=== PATIENT | female | born 1980 | race African-American/Black ===

== ENCOUNTER 2017-05-20 19:49 | Inpatient (IN) | payer SELFPAY ==
[~2017-05-20] VITALS: Ht 160 cm; Wt 73.7 kg
[2017-05-20] MEDS ORDERED: IV NORMAL SALINE 1000ML BAG 1,000 ML IV ONE ×2 (20:30→22:30)
[2017-05-20 20:34] LABS: BILIRUBIN,URINE SMALL (NEG); GLUCOSE,URINE NEGATIVE (NEG); NITRITE,URINE NEGATIVE (NEG); PROTEIN,URINE 100 mg/dL (NEG-TRACE)
[2017-05-20 20:35] LABS: BASO % 0 % (0-3); EOS % 1 % (0-3); HEMATOCRIT 37.2 % (36.0-47.0); HEMOGLOBIN 12.4 g/dL (12.0-15.5); LYMPH # 0.8 x10^3/uL (1.0-4.8); LYMPH % 14 % (24-48); MEAN CORPUSCULAR HEMOGLOBIN 29 pg (25-35); MEAN CORPUSCULAR HGB CONC 33 g/dL (31-37); MEAN CORPUSCULAR VOLUME 87 fL (79-100); MONO % 4 % (0-9); NEUT % 82 % (31-73); PLATELET COUNT 383 x10^3/uL (140-400); RED BLOOD COUNT 4.27 x10^6/uL (3.50-5.40); RED CELL DISTRIBUTION WIDTH 13.6 % (11.5-14.5)
[2017-05-20] MEDS ORDERED: ONDANSETRON PF 4 MG/2 ML VIAL. IV ONE (20:45)
[2017-05-20] MEDS ORDERED: fentaNYL PF VIAL 100 MCG/2 ML VIAL IV ONE (20:45)
[2017-05-20 20:47] LABS: BACTERIA,URINE FEW /HPF (0-FEW); RBC,URINE 20-40 /HPF (0-2); SQUAMOUS EPITHELIAL CELL,UR MOD /LPF
[2017-05-20 20:51] LABS: CALCIUM 8.6 mg/dL (8.5-10.1); CREATININE 0.6 mg/dL (0.6-1.0); GFR 134.7; POTASSIUM 3.7 mmol/L (3.5-5.1)
[2017-05-20 20:58] LABS: ALBUMIN 3.1 g/dL (3.4-5.0); ALBUMIN/GLOBULIN RATIO 0.7 (1.0-1.7); TOTAL BILIRUBIN 0.7 mg/dL (0.2-1.0); TOTAL PROTEIN 7.7 g/dL (6.4-8.2)
[2017-05-20] MEDS ORDERED: CONTRAST GIVEN MC PRN (21:00)
[2017-05-20] MEDS ORDERED: IOHEXOL 300 MG/ML 75 ML VIAL IV ONE (21:00)
[2017-05-20 21:03] LABS: CREATINE KINASE 88 U/L (26-192)
[2017-05-20 21:04] LABS: CKMB MASS < 0.5 ng/mL (0.0-3.6)
--- NOTE | 2017-05-20 21:47 | RAD ---
CT SCAN OF THE ABDOMEN AND PELVIS WITH IV CONTRAST. History: Left lower quadrant pain and bilateral flank pain Comparison:None. Procedure: Contiguous axial images of the abdomen and pelvis were performed after the administration of 75 cc of Omni 300 IV contrast and without oral contrast. CT Abdomen with contrast: Findings: Liver: Unremarkable Spleen: Unremarkable Pancreas: Unremarkable Adrenal Glands: Unremarkable Kidneys: Unremarkable There is no mass or lymphadenopathy. There is a trace of free fluid around the liver and in the right paracolic gutter. There are numerous loops of small bowel in the left upper quadrant which appear mildly dilated and enhancing falcon and mild surrounding inflammation. There is mild free air. The distal small bowel appears somewhat collapsed however a transition zone is not seen. CT Pelvis with Contrast: Findings: The urinary bladder appears normal. There is mild free fluid. There is no lymphadenopathy. There is mild wall thickening of the distal descending colon and the proximal sigmoid colon. Impression: 1. Mild free air and mild free fluid is likely secondary to small bowel perforation. 2. Mildly dilated loops of small bowel with enhancement and wall thickening and surrounding inflammation in the left hemiabdomen as well as mild wall thickening of the distal descending colon and the proximal sigmoid colon. Findings suggest inflammatory or infectious colitis and enteritis. PQRS Compliance Statement: One or more of the following individualized dose reduction techniques were utilized for this examination: 1. Automated exposure control 2. Adjustment of the mA and/or kV according to patient size 3. Use of iterative reconstruction technique Electronically signed by: Cooper Abarca III, MD (05/20/2017 9:44 PM) [facility]
--- NOTE | 2017-05-20 22:10 | PHYS DOC ---
Past Medical History Past Medical History: No Pertinent History Past Surgical History: No Surgical History Alcohol Use: None Drug Use: None Adult General Chief Complaint Chief Complaint: ABDOMINAL PAIN HPI HPI Patient is a 37 year old E male presents to the emergency department with complaints of diffuse abdominal pain. She states that approximate 7 days ago she ate at a barbecue dinner and developed upper abdominal pain with mild nausea and diarrhea. She states she had persistent abdominal pain for 2 days and then the pain diminished for approximately 12 hours. She states that he Wednesday evening, approximately 24 hours ago, she had intensification of the diffuse upper abdominal pain, mild diarrhea and nausea. She initially states the pain was in the epigastric area and was burning in nature that is since became sharp and intolerable. Patient states that approximately 5 hours prior to arrival in the emergency department she felt a popping sensation in the upper abdomen. Review of Systems Review of Systems Constitutional: Denies fever or chills [] Eyes: Denies change in visual acuity, redness, or eye pain [] HENT: Denies nasal congestion or sore throat [] Respiratory: Denies cough or shortness of breath [] Cardiovascular: No additional information not addressed in HPI [] GI: Abdominal pain with nausea and : Denies dysuria or hematuria [] Musculoskeletal: Denies back pain or joint pain [] Integument: Denies rash or skin lesions [] Neurologic: Denies headache, focal weakness or sensory changes [] Endocrine: Denies polyuria or polydipsia [] Current Medications Current Medications Current Medications Medications (Trade) Dose Ordered Sig/Tom Start Time Stop Time Status Last Admin Dose Admin Fentanyl Citrate (Fentanyl 2ml Vial) 50 mcg PRN Q1HR PRN 05/20/17 22:30 05/21/17 22:29 UNV Info (Do NOT chart on this entry -- for MONITORING) 1 each PRN DAILY PRN 05/20/17 21:00 05/22/17 20:59 Iohexol (Omnipaque 300 Mg/ml) 75 ml 1X ONCE 05/20/17 21:00 05/20/17 21:01 DC 05/20/17 21:21 75 ML Ondansetron HCl (Zofran) 4 mg PRN Q8HRS PRN 05/20/17 22:30 05/21/17 22:29 UNV Pantoprazole Sodium (Protonix Vial) 40 mg 1X ONCE 05/20/17 22:30 05/20/17 22:31 UNV Pantoprazole Sodium 80 mg/ Sodium Chloride 100 ml @ 10 mls/hr 1X ONCE 05/20/17 22:30 05/21/17 08:29 UNV Piperacillin Sod/ Tazobactam Sod (Zosyn Per Pharmacy) 1 each PRN DAILY PRN 05/20/17 22:30 UNV Piperacillin Sod/ Tazobactam Sod 3.375 gm/Sodium Chloride 50 ml @ 100 mls/hr 1X ONCE 05/20/17 22:30 05/20/17 22:59 Sodium Chloride 1,000 ml @ 1,000 mls/hr 1X ONCE 05/20/17 22:30 05/20/17 23:29 UNV Allergies Allergies Allergies Coded Allergies Type Severity Reaction Last Updated Verified No Known Drug Allergies 05/20/17 No Physical Exam Physical Exam Constitutional: Well developed, well nourished, no acute distress, non-toxic appearance.Mucous membranes moist [] Eyes: PERRLA, EOMI, conjunctiva normal, no discharge. [] Neck: Normal range of motion, no tenderness, supple, no stridor. [] Cardiovascular:Heart rate regular rhythm, no murmur [] Lungs & Thorax: Bilateral breath sounds clear to auscultation [] Abdomen: Mild distention, soft, diffuse tenderness, no peritoneal signs. Skin: Warm, dry, no erythema, no rash. [] Back: No tenderness, left flank tenderness. Extremities: No tenderness, no cyanosis, no clubbing, ROM intact, no edema. [] Neurologic: Alert and oriented X 3, normal motor function, normal sensory function, no focal deficits noted. [] Psychologic: Affect normal, judgement normal, mood normal. [] Current Patient Data Vital Signs Vital Signs Date Time Temp Pulse Resp B/P (MAP) Pulse Ox O2 Delivery O2 Flow Rate FiO2 05/20/17 20:47 24 97 Room Air 05/20/17 20:12 100.3 150 136/66 (89) 100.3 Lab Values Laboratory Tests Test 05/20/17 19:57 05/20/17 20:24 05/20/17 20:25 Urine Collection Type Unknown Urine Color Juliette Urine Clarity Clear Urine pH 8.0 Urine Specific [place] >=1.030 Urine Protein 100 mg/dL (NEG-TRACE) Urine Glucose (UA) Negative mg/dL (NEG) Urine Ketones (Stick) 40 mg/dL (NEG) Urine Blood Trace (NEG) Urine Nitrite Negative (NEG) Urine Bilirubin Small (NEG) Urine Urobilinogen Dipstick 4.0 mg/dL (0.2 mg/dL) Urine Leukocyte Esterase Small (NEG) Urine RBC 20-40 /HPF (0-2) Urine WBC 1-4 /HPF (0-4) Urine Squamous Epithelial Cells Mod /LPF Urine Bacteria Few /HPF (0-FEW) Urine Mucus Marked /LPF POC Urine HCG, Qualitative Hcg negative (Negative) White Blood Count 6.0 x10^3/uL (4.0-11.0) Red Blood Count 4.27 x10^6/uL (3.50-5.40) Hemoglobin 12.4 g/dL (12.0-15.5) Hematocrit 37.2 % (36.0-47.0) Mean Corpuscular Volume 87 fL (79-100) Mean Corpuscular Hemoglobin 29 pg (25-35) Mean Corpuscular Hemoglobin Concent 33 g/dL (31-37) Red Cell Distribution Width 13.6 % (11.5-14.5) Platelet Count 383 x10^3/uL (140-400) Neutrophils (%) (Auto) 82 % (31-73) H Lymphocytes (%) (Auto) 14 % (24-48) L Monocytes (%) (Auto) 4 % (0-9) Eosinophils (%) (Auto) 1 % (0-3) Basophils (%) (Auto) 0 % (0-3) Neutrophils # (Auto) 4.9 x10^3uL (1.8-7.7) Lymphocytes # (Auto) 0.8 x10^3/uL (1.0-4.8) L Monocytes # (Auto) 0.2 x10^3/uL (0.0-1.1) Eosinophils # (Auto) 0.0 x10^3/uL (0.0-0.7) Basophils # (Auto) 0.0 x10^3/uL (0.0-0.2) Sodium Level 136 mmol/L (136-145) Potassium Level 3.7 mmol/L (3.5-5.1) Chloride Level 101 mmol/L (98-107) Carbon Dioxide Level 26 mmol/L (21-32) Anion Gap 9 (6-14) Blood Urea Nitrogen 11 mg/dL (7-20) Creatinine 0.6 mg/dL (0.6-1.0) Estimated GFR (Cockcroft-Gault) 134.7 BUN/Creatinine Ratio 18 (6-20) Glucose Level 129 mg/dL (70-99) H Calcium Level 8.6 mg/dL (8.5-10.1) Total Bilirubin 0.7 mg/dL (0.2-1.0) Aspartate Amino Transferase (AST) 47 U/L (15-37) H Alanine Aminotransferase (ALT) 55 U/L (14-59) Alkaline Phosphatase 142 U/L (46-116) H Creatine Kinase 88 U/L (26-192) Creatine Kinase MB (Mass) < 0.5 ng/mL (0.0-3.6) Creatine Kinase MB Relative Index % (0-4) Troponin I Quantitative < 0.017 ng/mL (0.000-0.055) Total Protein 7.7 g/dL (6.4-8.2) Albumin 3.1 g/dL (3.4-5.0) L Albumin/Globulin Ratio 0.7 (1.0-1.7) L Amylase Level 31 U/L (25-115) Lipase 93 U/L (73-393) Laboratory Tests 05/20/17 20:25 Laboratory Tests 05/20/17 20:25 EKG EKG [] Radiology/Procedures Radiology/Procedures [] Course & Med Decision Making Course & Med Decision Making Pertinent Labs and Imaging studies reviewed. (See chart for details) []2211: Consult Dr. Vazquez and Dr. Prieto regarding diagnosis and request for admission. Pt admitted to Dr. Vazquez, ICU; FABRICIO Davsi in ED 2229: Case discussed with Dr. Goel 2234: Dr. Prieto notified VS changes, BP103/70 and HR 135. Pt without complaints at time of re-eval. Dragon Disclaimer Dragon Disclaimer This electronic medical record was generated, in whole or in part, using a voice recognition dictation system. Departure Departure Disposition: 09 ADMITTED INPATIENT Admitting Physician: Karla Vazquez Condition: GUARDED Referrals: NO PCP (PCP) HONEY HUMPHREY [employer]IMAL SHELTER MANAGER May 20, 2017 22:10
[2017-05-20] MEDS: IV NORMAL SALINE 1000ML BAG 1,000 ML IV SCH (22:30)
[2017-05-20] MEDS ORDERED: PIPERACILLIN/TAZOBACTAM 3.375 GM in IV NORMAL SALINE 50ML 50 ML IV ONE (22:30)
[2017-05-20] MEDS ORDERED: ONDANSETRON PF 4 MG/2 ML VIAL. IV PRN (22:30)
[2017-05-20] MEDS ORDERED: PIP/TAZO PER PHARMACY MC PRN (22:30)
[2017-05-20] MEDS ORDERED: PANTOPRAZOLE IV PUSH 40 MG VIAL. IVP ONE (22:45)
[2017-05-20] MEDS ORDERED: PANTOPRAZOLE SODIUM IV DRIP 80 MG in IV NORMAL SALINE 100ML 100 ML IV ONE (22:45)
[2017-05-20 23:44] LABS: INR 1.2 (0.8-1.1); PROTHROMBIN TIME PATIENT 14.6 SEC (11.7-14.0)
[2017-05-21] VITALS (23 sets, daily range): BP systolic 92–118; BP diastolic 53–74
[2017-05-21] MEDS: fentaNYL PF VIAL 100 MCG/2 ML VIAL IV PRN ×6 (00:32→22:16)
[2017-05-21] MEDS ORDERED: INFLUENZA VAX SCREEN BY RX. MC ONE (01:30)
[2017-05-21 05:39] LABS: BASO % 0 % (0-3); EOS % 0 % (0-3); HEMATOCRIT 35.7 % (36.0-47.0); HEMOGLOBIN 11.9 g/dL (12.0-15.5); LYMPH # 0.9 x10^3/uL (1.0-4.8); LYMPH % 10 % (24-48); MEAN CORPUSCULAR HEMOGLOBIN 29 pg (25-35); MEAN CORPUSCULAR HGB CONC 33 g/dL (31-37); MEAN CORPUSCULAR VOLUME 88 fL (79-100); MONO % 6 % (0-9); NEUT % 84 % (31-73); PLATELET COUNT 349 x10^3/uL (140-400); RED BLOOD COUNT 4.05 x10^6/uL (3.50-5.40); WHITE BLOOD COUNT 9.1 x10^3/uL (4.0-11.0)
[2017-05-21] MEDS: PIPERACILLIN/TAZOBACTAM 3.375 GM in IV NORMAL SALINE 50ML 50 ML IV SCH ×4 (06:04→23:45)
[2017-05-21 06:09] LABS: CALCIUM 7.4 mg/dL (8.5-10.1); CREATININE 0.5 mg/dL (0.6-1.0); GFR 166.2; POTASSIUM 3.2 mmol/L (3.5-5.1)
--- NOTE | 2017-05-21 06:15 | EKG ---
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
[2017-05-21] MEDS ORDERED: BUPIVACAINE-EPI 0.25%-1:200000 MPF 30 ML VIAL. ONE (06:48)
--- NOTE | 2017-05-21 07:16 | PDOC2 ---
CONSULT Date of Consult Date of Consult DATE: 05/21/17 TIME: 07:11 Reason for Consult Reason for Consult: Abd pain Referring Physician Referring Physician: Taylor Identification/Chief Complaint Chief Complaint Abd pain Problems: Source Source: Patient History of Present Illness Reason for Visit: 37 yo female with 7 day history of abdominal pain "burning" Pain has worsened which caused her to come to ED. Denies N/V Has had normal BM's. CT scan shows small amount of free air and some free fluid. Past Medical History Cardiovascular: No pertinent hx Pulmonary: No pertinent hx GI: No pertinent hx Heme/Onc: No pertinent hx Hepatobiliary: No pertinent hx Psych: No pertinent hx Rheumatologic: No pertinent hx Infectious disease: No pertinent hx ENT: No pertinent hx Renal/: No pertinent hx Endocrine: No pertinent hx Dermatology: No pertinent hx Past Surgical History Past Surgical History: No pertinent history Current Medications Current Medications Current Medications Sodium Chloride 1,000 ml @ 1,000 mls/hr 1X ONCE IV Last administered on 20:40; Start 05/20/17 at 20:30; Stop 05/20/17 at 21:29; Status DC Ondansetron HCl (Zofran) 4 mg 1X ONCE IV Last administered on 05/20/17 20:47 ; Start 05/20/17 at 20:45; Stop 05/20/17 at 20:46; Status DC Fentanyl Citrate (Fentanyl 2ml Vial) 50 mcg 1X ONCE IV Last administered on 20:47; Start 05/20/17 at 20:45; Stop 05/20/17 at 20:46; Status DC Iohexol (Omnipaque 300 Mg/ml) 75 ml 1X ONCE IV Last administered on 05/20/17 21:21; Start 05/20/17 at 21:00; Stop 05/20/17 at 21:01; Status DC Info (Do NOT chart on this entry -- for MONITORING) 1 each PRN DAILY PRN MC SEE COMMENTS; Start 05/20/17 at 21:00; Stop 05/22/17 at 20:59 Piperacillin Sod/ Tazobactam Sod 3.375 gm/Sodium Chloride 50 ml @ 100 mls/hr 1X ONCE IV Last administered on 05/20/17 22:42; Start 05/20/17 at 22:30; Stop 05/20/17 at 22:59; Status DC Ondansetron HCl (Zofran) 4 mg PRN Q8HRS PRN IV NAUSEA/VOMITING; Start 05/20/17 at 22:30; Stop 05/21/17 at 22:29 Fentanyl Citrate (Fentanyl 2ml Vial) 50 mcg PRN Q1HR PRN IV PAIN Last administered on 05/21/17 06:10; Start 05/20/17 at 22:30; Stop 05/21/17 at 22:29 Sodium Chloride 1,000 ml @ 125 mls/hr Q8H IV Last administered on 05/20/17 22 :30; Start 05/20/17 at 22:30; Stop 05/21/17 at 22:29 Piperacillin Sod/ Tazobactam Sod (Zosyn Per Pharmacy) 1 each PRN DAILY PRN MC SEE COMMENTS; Start 05/20/17 at 22:30 Pantoprazole Sodium (Protonix Vial) 40 mg 1X ONCE IVP Last administered on 22:54; Start 05/20/17 at 22:45; Stop 05/20/17 at 22:46; Status DC Pantoprazole Sodium 80 mg/ Sodium Chloride 100 ml @ 10 mls/hr 1X ONCE IV Last administered on 05/20/17 22:54; Start 05/20/17 at 22:45; Stop 05/21/17 at 08:44 Sodium Chloride 1,000 ml @ 1,000 mls/hr 1X ONCE IV Last administered on 22:54; Start 05/20/17 at 22:30; Stop 05/20/17 at 23:29; Status DC Piperacillin Sod/ Tazobactam Sod 3.375 gm/Sodium Chloride 50 ml @ 100 mls/hr Q6HRS IV Last administered on 05/21/17 06:04; Start 05/21/17 at 06:00 Info (Do NOT chart on this placeholder) 1 each 1X ONCE MC ; Start 05/21/17 at 01:30; Stop 05/21/17 at 01:31; Status UNV Influenza Virus Vaccine Quadrival (Fluarix Quad [id number] Syringe) 0.5 ml ONCE ONCE VAX IM ; Start 05/21/17 at 09:00; Stop 05/21/17 at 09:01 Pantoprazole Sodium 80 mg/ Sodium Chloride 100 ml @ 10 mls/hr Q10H IV ; Start 05/21/17 at 06:45 Active Scripts Active Reported No Known Medications Prior To Admisstion (Info) Each 1 Each Allergies Allergies: Coded Allergies: No Known Drug Allergies (Unverified , 05/20/17) ROS General: YES: Fatigue Gastrointestinal: Yes Abdominal Pain Physical Exam General: Alert, Oriented X3, Cooperative, moderate distress HEENT: PERRLA, EOMI Lungs: Clear to auscultation, Normal air movement Heart: Regular rate, No murmurs Abdomen: Soft, Other (diffusely TTP ) Extremities: No edema Skin: No significant lesion Neuro: Normal speech Psych/Mental Status: Mental status NL Vitals VITALS Vital Signs Date Time Temp Pulse Resp B/P (MAP) Pulse Ox O2 Delivery O2 Flow Rate FiO2 05/21/17 06:42 18 98 Room Air 05/21/17 06:00 120 100/56 (71) 05/21/17 05:00 98.8 98.8 Labs Labs Laboratory Tests Test 05/20/17 19:57 05/20/17 20:24 05/20/17 20:25 05/20/17 23:40 Urine Collection Type Unknown Urine Color Juliette Urine Clarity Clear Urine pH 8.0 Urine Specific [place] >=1.030 Urine Protein 100 mg/dL (NEG-TRACE) Urine Glucose (UA) Negative mg/dL (NEG) Urine Ketones (Stick) 40 mg/dL (NEG) Urine Blood Trace (NEG) Urine Nitrite Negative (NEG) Urine Bilirubin Small (NEG) Urine Urobilinogen Dipstick 4.0 mg/dL (0.2 mg/dL) Urine Leukocyte Esterase Small (NEG) Urine RBC 20-40 /HPF (0-2) Urine WBC 1-4 /HPF (0-4) Urine Squamous Epithelial Cells Mod /LPF Urine Bacteria Few /HPF (0-FEW) Urine Mucus Marked /LPF Bedside Urine HCG, Qualitative Hcg negative (Negative) White Blood Count 6.0 x10^3/uL (4.0-11.0) Red Blood Count 4.27 x10^6/uL (3.50-5.40) Hemoglobin 12.4 g/dL (12.0-15.5) Hematocrit 37.2 % (36.0-47.0) Mean Corpuscular Volume 87 fL (79-100) Mean Corpuscular Hemoglobin 29 pg (25-35) Mean Corpuscular Hemoglobin Concent 33 g/dL (31-37) Red Cell Distribution Width 13.6 % (11.5-14.5) Platelet Count 383 x10^3/uL (140-400) Neutrophils (%) (Auto) 82 % (31-73) Lymphocytes (%) (Auto) 14 % (24-48) Monocytes (%) (Auto) 4 % (0-9) Eosinophils (%) (Auto) 1 % (0-3) Basophils (%) (Auto) 0 % (0-3) Neutrophils # (Auto) 4.9 x10^3uL (1.8-7.7) Lymphocytes # (Auto) 0.8 x10^3/uL (1.0-4.8) Monocytes # (Auto) 0.2 x10^3/uL (0.0-1.1) Eosinophils # (Auto) 0.0 x10^3/uL (0.0-0.7) Basophils # (Auto) 0.0 x10^3/uL (0.0-0.2) Prothrombin Time 14.6 SEC (11.7-14.0) Prothromb Time International Ratio 1.2 (0.8-1.1) Activated Partial Thromboplast Time 36 SEC (24-38) Sodium Level 136 mmol/L (136-145) Potassium Level 3.7 mmol/L (3.5-5.1) Chloride Level 101 mmol/L (98-107) Carbon Dioxide Level 26 mmol/L (21-32) Anion Gap 9 (6-14) Blood Urea Nitrogen 11 mg/dL (7-20) Creatinine 0.6 mg/dL (0.6-1.0) Estimated GFR (Cockcroft-Gault) 134.7 BUN/Creatinine Ratio 18 (6-20) Glucose Level 129 mg/dL (70-99) Calcium Level 8.6 mg/dL (8.5-10.1) Total Bilirubin 0.7 mg/dL (0.2-1.0) Aspartate Amino Transf (AST/SGOT) 47 U/L (15-37) Alanine Aminotransferase (ALT/SGPT) 55 U/L (14-59) Alkaline Phosphatase 142 U/L (46-116) Creatine Kinase 88 U/L (26-192) Creatine Kinase MB (Mass) < 0.5 ng/mL (0.0-3.6) Creatine Kinase MB Relative Index % (0-4) Troponin I Quantitative < 0.017 ng/mL (0.000-0.055) Total Protein 7.7 g/dL (6.4-8.2) Albumin 3.1 g/dL (3.4-5.0) Albumin/Globulin Ratio 0.7 (1.0-1.7) Amylase Level 31 U/L (25-115) Lipase 93 U/L (73-393) Lactic Acid Level 0.9 mmol/L (0.4-2.0) Test 05/21/17 01:30 05/21/17 05:00 Lactic Acid Level 0.8 mmol/L (0.4-2.0) White Blood Count 9.1 x10^3/uL (4.0-11.0) Red Blood Count 4.05 x10^6/uL (3.50-5.40) Hemoglobin 11.9 g/dL (12.0-15.5) Hematocrit 35.7 % (36.0-47.0) Mean Corpuscular Volume 88 fL (79-100) Mean Corpuscular Hemoglobin 29 pg (25-35) Mean Corpuscular Hemoglobin Concent 33 g/dL (31-37) Red Cell Distribution Width 14.0 % (11.5-14.5) Platelet Count 349 x10^3/uL (140-400) Neutrophils (%) (Auto) 84 % (31-73) Lymphocytes (%) (Auto) 10 % (24-48) Monocytes (%) (Auto) 6 % (0-9) Eosinophils (%) (Auto) 0 % (0-3) Basophils (%) (Auto) 0 % (0-3) Neutrophils # (Auto) 7.6 x10^3uL (1.8-7.7) Lymphocytes # (Auto) 0.9 x10^3/uL (1.0-4.8) Monocytes # (Auto) 0.5 x10^3/uL (0.0-1.1) Eosinophils # (Auto) 0.0 x10^3/uL (0.0-0.7) Basophils # (Auto) 0.0 x10^3/uL (0.0-0.2) Sodium Level 139 mmol/L (136-145) Potassium Level 3.2 mmol/L (3.5-5.1) Chloride Level 107 mmol/L (98-107) Carbon Dioxide Level 23 mmol/L (21-32) Anion Gap 9 (6-14) Blood Urea Nitrogen 7 mg/dL (7-20) Creatinine 0.5 mg/dL (0.6-1.0) Estimated GFR (Cockcroft-Gault) 166.2 Glucose Level 106 mg/dL (70-99) Calcium Level 7.4 mg/dL (8.5-10.1) Laboratory Tests Test 05/20/17 19:57 05/20/17 20:24 05/20/17 20:25 05/20/17 23:40 Urine Collection Type Unknown Urine Color Juliette Urine Clarity Clear Urine pH 8.0 Urine Specific [place] >=1.030 Urine Protein 100 mg/dL (NEG-TRACE) Urine Glucose (UA) Negative mg/dL (NEG) Urine Ketones (Stick) 40 mg/dL (NEG) Urine Blood Trace (NEG) Urine Nitrite Negative (NEG) Urine Bilirubin Small (NEG) Urine Urobilinogen Dipstick 4.0 mg/dL (0.2 mg/dL) Urine Leukocyte Esterase Small (NEG) Urine RBC 20-40 /HPF (0-2) Urine WBC 1-4 /HPF (0-4) Urine Squamous Epithelial Cells Mod /LPF Urine Bacteria Few /HPF (0-FEW) Urine Mucus Marked /LPF Bedside Urine HCG, Qualitative Hcg negative (Negative) White Blood Count 6.0 x10^3/uL (4.0-11.0) Red Blood Count 4.27 x10^6/uL (3.50-5.40) Hemoglobin 12.4 g/dL (12.0-15.5) Hematocrit 37.2 % (36.0-47.0) Mean Corpuscular Volume 87 fL (79-100) Mean Corpuscular Hemoglobin 29 pg (25-35) Mean Corpuscular Hemoglobin Concent 33 g/dL (31-37) Red Cell Distribution Width 13.6 % (11.5-14.5) Platelet Count 383 x10^3/uL (140-400) Neutrophils (%) (Auto) 82 % (31-73) Lymphocytes (%) (Auto) 14 % (24-48) Monocytes (%) (Auto) 4 % (0-9) Eosinophils (%) (Auto) 1 % (0-3) Basophils (%) (Auto) 0 % (0-3) Neutrophils # (Auto) 4.9 x10^3uL (1.8-7.7) Lymphocytes # (Auto) 0.8 x10^3/uL (1.0-4.8) Monocytes # (Auto) 0.2 x10^3/uL (0.0-1.1) Eosinophils # (Auto) 0.0 x10^3/uL (0.0-0.7) Basophils # (Auto) 0.0 x10^3/uL (0.0-0.2) Prothrombin Time 14.6 SEC (11.7-14.0) Prothromb Time International Ratio 1.2 (0.8-1.1) Activated Partial Thromboplast Time 36 SEC (24-38) Sodium Level 136 mmol/L (136-145) Potassium Level 3.7 mmol/L (3.5-5.1) Chloride Level 101 mmol/L (98-107) Carbon Dioxide Level 26 mmol/L (21-32) Anion Gap 9 (6-14) Blood Urea Nitrogen 11 mg/dL (7-20) Creatinine 0.6 mg/dL (0.6-1.0) Estimated GFR (Cockcroft-Gault) 134.7 BUN/Creatinine Ratio 18 (6-20) Glucose Level 129 mg/dL (70-99) Calcium Level 8.6 mg/dL (8.5-10.1) Total Bilirubin 0.7 mg/dL (0.2-1.0) Aspartate Amino Transf (AST/SGOT) 47 U/L (15-37) Alanine Aminotransferase (ALT/SGPT) 55 U/L (14-59) Alkaline Phosphatase 142 U/L (46-116) Creatine Kinase 88 U/L (26-192) Creatine Kinase MB (Mass) < 0.5 ng/mL (0.0-3.6) Creatine Kinase MB Relative Index % (0-4) Troponin I Quantitative < 0.017 ng/mL (0.000-0.055) Total Protein 7.7 g/dL (6.4-8.2) Albumin 3.1 g/dL (3.4-5.0) Albumin/Globulin Ratio 0.7 (1.0-1.7) Amylase Level 31 U/L (25-115) Lipase 93 U/L (73-393) Lactic Acid Level 0.9 mmol/L (0.4-2.0) Test 05/21/17 01:30 05/21/17 05:00 Lactic Acid Level 0.8 mmol/L (0.4-2.0) White Blood Count 9.1 x10^3/uL (4.0-11.0) Red Blood Count 4.05 x10^6/uL (3.50-5.40) Hemoglobin 11.9 g/dL (12.0-15.5) Hematocrit 35.7 % (36.0-47.0) Mean Corpuscular Volume 88 fL (79-100) Mean Corpuscular Hemoglobin 29 pg (25-35) Mean Corpuscular Hemoglobin Concent 33 g/dL (31-37) Red Cell Distribution Width 14.0 % (11.5-14.5) Platelet Count 349 x10^3/uL (140-400) Neutrophils (%) (Auto) 84 % (31-73) Lymphocytes (%) (Auto) 10 % (24-48) Monocytes (%) (Auto) 6 % (0-9) Eosinophils (%) (Auto) 0 % (0-3) Basophils (%) (Auto) 0 % (0-3) Neutrophils # (Auto) 7.6 x10^3uL (1.8-7.7) Lymphocytes # (Auto) 0.9 x10^3/uL (1.0-4.8) Monocytes # (Auto) 0.5 x10^3/uL (0.0-1.1) Eosinophils # (Auto) 0.0 x10^3/uL (0.0-0.7) Basophils # (Auto) 0.0 x10^3/uL (0.0-0.2) Sodium Level 139 mmol/L (136-145) Potassium Level 3.2 mmol/L (3.5-5.1) Chloride Level 107 mmol/L (98-107) Carbon Dioxide Level 23 mmol/L (21-32) Anion Gap 9 (6-14) Blood Urea Nitrogen 7 mg/dL (7-20) Creatinine 0.5 mg/dL (0.6-1.0) Estimated GFR (Cockcroft-Gault) 166.2 Glucose Level 106 mg/dL (70-99) Calcium Level 7.4 mg/dL (8.5-10.1) Images Images In HPI Assessment/Plan Assessment/Plan Abdominal pain with abnormal CT scan Likely, perforated duodenal or gastric ulcer Plan fluid resucitation, Plan for dx ls with abdominal washout and repair of perforation. LO CURRIE MD May 21, 2017 07:16
[2017-05-21] MEDS ORDERED: IV RINGERS,LACTATED 1000ML 1,000 ML IV SCH ×2 (07:19→10:45)
[2017-05-21] MEDS ORDERED: MORPHINE SULFATE 2 MG/ML DISP.SYRIN. IV PRN ×2 (07:30→09:30)
[2017-05-21] MEDS ORDERED: fentaNYL PF VIAL 100 MCG/2 ML VIAL IV PRN (07:30)
[2017-05-21] MEDS ORDERED: LIDOCAINE 1% PF 2 ML VIAL. ID PRN (07:30)
[2017-05-21] MEDS ORDERED: PROCHLORPERAZINE 10 MG/2 ML VIAL. IV PRN (07:30)
[2017-05-21] MEDS ORDERED: ONDANSETRON PF 4 MG/2 ML VIAL. IV PRN (07:30)
[2017-05-21] MEDS: PANTOPRAZOLE SODIUM IV DRIP 80 MG in IV NORMAL SALINE 100ML 100 ML IV SCH ×2 (08:16→16:37)
[2017-05-21] MEDS: IV NORMAL SALINE 1000ML BAG 1,000 ML IV SCH ×2 (08:16→12:56)
[2017-05-21] MEDS ORDERED: PROPOFOL 20 ML IV ONE (09:00)
[2017-05-21] MEDS ORDERED: ROCURONIUM 100 MG/10 ML VIAL. ONE (09:00)
[2017-05-21] MEDS ORDERED: MIDAZOLAM HCL/PF 2 MG/2 ML VIAL. ONE (09:00)
[2017-05-21] MEDS ORDERED: SUCCINYLCHOLINE 200 MG/10 ML VIAL. ONE (09:00)
[2017-05-21] MEDS ORDERED: LIDOCAINE 2% PF Vial for OR 5 ML VIAL. ONE (09:00)
[2017-05-21] MEDS ORDERED: FLU VACC QS2017-18 (36MOS+)/PF 0.5 ML SYRINGE. VAX IM ONE (09:00)
[2017-05-21] MEDS ORDERED: fentaNYL PF VIAL 100 MCG/2 ML VIAL ONE ×3 (09:00→10:37)
[2017-05-21] MEDS ORDERED: GLYCOPYRROLATE 1 MG/5 ML VIAL. ONE (09:52)
[2017-05-21] MEDS ORDERED: NEOSTIGMINE METHYLSULFATE 5 MG/5 ML SYRINGE. ONE (09:52)
[2017-05-21] MEDS ORDERED: PHENYLEPHRINE in 0.9% NACL PF 1 MG/10 ML DISP.SYRIN. IV ONE (09:52)
[2017-05-21] MEDS: POTASSIUM CHLORIDE 10MEQ 100 ML IV SCH ×4 (10:00→16:36)
--- NOTE | 2017-05-21 10:35 | PDOC1 ---
History and Physical Date of Admission Date of Admission DATE: 05/21/17 TIME: 10:22 Identification/Chief Complaint Chief Complaint abd pain Problems: Source Source: Caregiver, Chart review History of Present Illness History of Present Illness 37 y.o female with no significant past medical, not taking any NSAIDs or ASA at least noted in chart, abd pain last 7 days described as burning, no temps, no fever, no change in BM, Went to ER, CT shows some mild free air and peritoneal fluid, GS consulted, assessed to be have likely DU or gastric ulcer that have perforated. NOw in OR. K mildly low, Past Medical History Cardiovascular: No pertinent hx Pulmonary: No pertinent hx GI: No pertinent hx Heme/Onc: No pertinent hx Hepatobiliary: No pertinent hx Psych: No pertinent hx Rheumatologic: No pertinent hx Infectious disease: No pertinent hx ENT: No pertinent hx Renal/: No pertinent hx Endocrine: No pertinent hx Dermatology: No pertinent hx Past Surgical History Past Surgical History: No pertinent history Family History Family History: No Significant Social History Smoke: No ALCOHOL: none Drugs: None Current Medications Current Medications Current Medications Sodium Chloride 1,000 ml @ 1,000 mls/hr 1X ONCE IV Last administered on 20:40; Start 05/20/17 at 20:30; Stop 05/20/17 at 21:29; Status DC Ondansetron HCl (Zofran) 4 mg 1X ONCE IV Last administered on 05/20/17 20:47 ; Start 05/20/17 at 20:45; Stop 05/20/17 at 20:46; Status DC Fentanyl Citrate (Fentanyl 2ml Vial) 50 mcg 1X ONCE IV Last administered on 20:47; Start 05/20/17 at 20:45; Stop 05/20/17 at 20:46; Status DC Iohexol (Omnipaque 300 Mg/ml) 75 ml 1X ONCE IV Last administered on 05/20/17 21:21; Start 05/20/17 at 21:00; Stop 05/20/17 at 21:01; Status DC Info (Do NOT chart on this entry -- for MONITORING) 1 each PRN DAILY PRN MC SEE COMMENTS; Start 05/20/17 at 21:00; Stop 05/22/17 at 20:59 Piperacillin Sod/ Tazobactam Sod 3.375 gm/Sodium Chloride 50 ml @ 100 mls/hr 1X ONCE IV Last administered on 05/20/17 22:42; Start 05/20/17 at 22:30; Stop 05/20/17 at 22:59; Status DC Ondansetron HCl (Zofran) 4 mg PRN Q8HRS PRN IV NAUSEA/VOMITING; Start 05/20/17 at 22:30; Stop 05/21/17 at 22:29 Fentanyl Citrate (Fentanyl 2ml Vial) 50 mcg PRN Q1HR PRN IV PAIN Last administered on 05/21/17 06:10; Start 05/20/17 at 22:30; Stop 05/21/17 at 22:29 Sodium Chloride 1,000 ml @ 125 mls/hr Q8H IV Last administered on 05/21/17 08 :16; Start 05/20/17 at 22:30; Stop 05/21/17 at 22:29 Piperacillin Sod/ Tazobactam Sod (Zosyn Per Pharmacy) 1 each PRN DAILY PRN MC SEE COMMENTS; Start 05/20/17 at 22:30 Pantoprazole Sodium (Protonix Vial) 40 mg 1X ONCE IVP Last administered on 22:54; Start 05/20/17 at 22:45; Stop 05/20/17 at 22:46; Status DC Pantoprazole Sodium 80 mg/ Sodium Chloride 100 ml @ 10 mls/hr 1X ONCE IV Last administered on 05/20/17 22:54; Start 05/20/17 at 22:45; Stop 05/21/17 at 08:44; Status DC Sodium Chloride 1,000 ml @ 1,000 mls/hr 1X ONCE IV Last administered on 22:54; Start 05/20/17 at 22:30; Stop 05/20/17 at 23:29; Status DC Piperacillin Sod/ Tazobactam Sod 3.375 gm/Sodium Chloride 50 ml @ 100 mls/hr Q6HRS IV Last administered on 05/21/17 06:04; Start 05/21/17 at 06:00 Info (Do NOT chart on this placeholder) 1 each 1X ONCE MC ; Start 05/21/17 at 01:30; Stop 05/21/17 at 01:31; Status UNV Influenza Virus Vaccine Quadrival (Fluarix Quad [id number] Syringe) 0.5 ml ONCE ONCE VAX IM ; Start 05/21/17 at 09:00; Stop 05/21/17 at 09:01; Status DC Pantoprazole Sodium 80 mg/ Sodium Chloride 100 ml @ 10 mls/hr Q10H IV Last administered on 05/21/17 08:16; Start 05/21/17 at 06:45 Ondansetron HCl (Zofran) 4 mg PRN Q6HRS PRN IV NAUSEA/VOMITING; Start 05/21/17 at 07:30; Stop 05/21/17 at 19:00 Fentanyl Citrate (Fentanyl 2ml Vial) 25 mcg PRN Q5MIN PRN IV MILD PAIN; Start 05/21/17 at 07:30; Stop 05/21/17 at 19:00 Fentanyl Citrate (Fentanyl 2ml Vial) 50 mcg PRN Q5MIN PRN IV MODERATE PAIN; Start 05/21/17 at 07:30; Stop 05/21/17 at 19:00 Morphine Sulfate 1 mg PRN Q10MIN PRN IV SEVERE PAIN; Start 05/21/17 at 07:30; Stop 05/21/17 at 19:00 Ringer's Solution 1,000 ml @ 30 mls/hr Q24H IV ; Start 05/21/17 at 07:19; Stop 05/21/17 at 19:18 Lidocaine HCl (Xylocaine-Mpf 1% Vial) 2 ml 1X PRN PRN ID IV START; Start at 07:30; Stop 05/21/17 at 19:00 Hydromorphone HCl (Dilaudid) 0.5 mg PRN Q10MIN PRN IV SEV PAIN, Second choice; Start 05/21/17 at 07:30; Stop 05/21/17 at 19:00 Prochlorperazine Edisylate (Compazine) 5 mg PACU PRN PRN IV NAUSEA, MRX1; Start 05/21/17 at 07:30; Stop 05/21/17 at 19:00 Bupivacaine HCl/ Epinephrine Bitart (Sensorcaine-Epi 0.25%-1:698130 Mpf) 30 ml STK-MED ONCE .ROUTE Last administered on 05/21/17t 10:09; Start 05/21/17 at 06: 48; Stop 05/21/17 at 07:48; Status DC Propofol 20 ml @ As Directed STK-MED ONCE IV ; Start 05/21/17 at 09:00; Stop at 09:01; Status DC Lidocaine HCl (Lidocaine Pf 2% Vial) 5 ml STK-MED ONCE .ROUTE ; Start 05/21/17 at 09:00; Stop 05/21/17 at 09:01; Status DC Rocuronium Conley (Zemuron) 100 mg STK-MED ONCE .ROUTE ; Start 05/21/17 at 09: 00; Stop 05/21/17 at 09:01; Status DC Succinylcholine Chloride (Anectine) 200 mg STK-MED ONCE .ROUTE ; Start 05/21/17 at 09:00; Stop 05/21/17 at 09:01; Status DC Midazolam HCl (Versed) 2 mg STK-MED ONCE .ROUTE ; Start 05/21/17 at 09:00; Stop 05/21/17 at 09:01; Status DC Fentanyl Citrate (Fentanyl 2ml Vial) 100 mcg STK-MED ONCE .ROUTE ; Start at 09:00; Stop 05/21/17 at 09:01; Status DC Potassium Chloride 100 ml @ 100 mls/hr Q1H IV ; Start 05/21/17 at 10:00; Stop 05/21/17 at 13:59 Morphine Sulfate 2 mg PRN Q2HR PRN IV PAIN; Start 05/21/17 at 09:30 Neostigmine Methylsulfate 5 mg STK-MED ONCE .ROUTE ; Start 05/21/17 at 09:52; Stop 05/21/17 at 09:53; Status DC Glycopyrrolate (Robinul) 1 mg STK-MED ONCE .ROUTE ; Start 05/21/17 at 09:52; Stop 05/21/17 at 09:53; Status DC Phenylephrine HCl 1 mg STK-MED ONCE IV ; Start 05/21/17 at 09:52; Stop 05/21/17 at 09:53; Status DC Fentanyl Citrate (Fentanyl 2ml Vial) 100 mcg STK-MED ONCE .ROUTE ; Start at 10:03; Stop 05/21/17 at 10:04; Status DC Active Scripts Active Reported No Known Medications Prior To Admisstion (Info) Each 1 Each Allergies Allergies: Coded Allergies: No Known Drug Allergies (Unverified , 05/20/17) ROS Review of System out having OR Physical Exam Physical Exam out having OR Vitals Vitals Vital Signs Date Time Temp Pulse Resp B/P (MAP) Pulse Ox O2 Delivery O2 Flow Rate FiO2 05/21/17 09:00 120 18 110/74 (86) 99 Room Air 05/21/17 07:00 98.8 98.8 Labs Labs Laboratory Tests Test 05/20/17 19:57 05/20/17 20:24 05/20/17 20:25 05/20/17 23:40 Urine Collection Type Unknown Urine Color Juliette Urine Clarity Clear Urine pH 8.0 Urine Specific [place] >=1.030 Urine Protein 100 mg/dL (NEG-TRACE) Urine Glucose (UA) Negative mg/dL (NEG) Urine Ketones (Stick) 40 mg/dL (NEG) Urine Blood Trace (NEG) Urine Nitrite Negative (NEG) Urine Bilirubin Small (NEG) Urine Urobilinogen Dipstick 4.0 mg/dL (0.2 mg/dL) Urine Leukocyte Esterase Small (NEG) Urine RBC 20-40 /HPF (0-2) Urine WBC 1-4 /HPF (0-4) Urine Squamous Epithelial Cells Mod /LPF Urine Bacteria Few /HPF (0-FEW) Urine Mucus Marked /LPF Bedside Urine HCG, Qualitative Hcg negative (Negative) White Blood Count 6.0 x10^3/uL (4.0-11.0) Red Blood Count 4.27 x10^6/uL (3.50-5.40) Hemoglobin 12.4 g/dL (12.0-15.5) Hematocrit 37.2 % (36.0-47.0) Mean Corpuscular Volume 87 fL (79-100) Mean Corpuscular Hemoglobin 29 pg (25-35) Mean Corpuscular Hemoglobin Concent 33 g/dL (31-37) Red Cell Distribution Width 13.6 % (11.5-14.5) Platelet Count 383 x10^3/uL (140-400) Neutrophils (%) (Auto) 82 % (31-73) Lymphocytes (%) (Auto) 14 % (24-48) Monocytes (%) (Auto) 4 % (0-9) Eosinophils (%) (Auto) 1 % (0-3) Basophils (%) (Auto) 0 % (0-3) Neutrophils # (Auto) 4.9 x10^3uL (1.8-7.7) Lymphocytes # (Auto) 0.8 x10^3/uL (1.0-4.8) Monocytes # (Auto) 0.2 x10^3/uL (0.0-1.1) Eosinophils # (Auto) 0.0 x10^3/uL (0.0-0.7) Basophils # (Auto) 0.0 x10^3/uL (0.0-0.2) Prothrombin Time 14.6 SEC (11.7-14.0) Prothromb Time International Ratio 1.2 (0.8-1.1) Activated Partial Thromboplast Time 36 SEC (24-38) Sodium Level 136 mmol/L (136-145) Potassium Level 3.7 mmol/L (3.5-5.1) Chloride Level 101 mmol/L (98-107) Carbon Dioxide Level 26 mmol/L (21-32) Anion Gap 9 (6-14) Blood Urea Nitrogen 11 mg/dL (7-20) Creatinine 0.6 mg/dL (0.6-1.0) Estimated GFR (Cockcroft-Gault) 134.7 BUN/Creatinine Ratio 18 (6-20) Glucose Level 129 mg/dL (70-99) Calcium Level 8.6 mg/dL (8.5-10.1) Total Bilirubin 0.7 mg/dL (0.2-1.0) Aspartate Amino Transf (AST/SGOT) 47 U/L (15-37) Alanine Aminotransferase (ALT/SGPT) 55 U/L (14-59) Alkaline Phosphatase 142 U/L (46-116) Creatine Kinase 88 U/L (26-192) Creatine Kinase MB (Mass) < 0.5 ng/mL (0.0-3.6) Creatine Kinase MB Relative Index % (0-4) Troponin I Quantitative < 0.017 ng/mL (0.000-0.055) Total Protein 7.7 g/dL (6.4-8.2) Albumin 3.1 g/dL (3.4-5.0) Albumin/Globulin Ratio 0.7 (1.0-1.7) Amylase Level 31 U/L (25-115) Lipase 93 U/L (73-393) Lactic Acid Level 0.9 mmol/L (0.4-2.0) Test 05/21/17 01:30 05/21/17 05:00 Lactic Acid Level 0.8 mmol/L (0.4-2.0) White Blood Count 9.1 x10^3/uL (4.0-11.0) Red Blood Count 4.05 x10^6/uL (3.50-5.40) Hemoglobin 11.9 g/dL (12.0-15.5) Hematocrit 35.7 % (36.0-47.0) Mean Corpuscular Volume 88 fL (79-100) Mean Corpuscular Hemoglobin 29 pg (25-35) Mean Corpuscular Hemoglobin Concent 33 g/dL (31-37) Red Cell Distribution Width 14.0 % (11.5-14.5) Platelet Count 349 x10^3/uL (140-400) Neutrophils (%) (Auto) 84 % (31-73) Lymphocytes (%) (Auto) 10 % (24-48) Monocytes (%) (Auto) 6 % (0-9) Eosinophils (%) (Auto) 0 % (0-3) Basophils (%) (Auto) 0 % (0-3) Neutrophils # (Auto) 7.6 x10^3uL (1.8-7.7) Lymphocytes # (Auto) 0.9 x10^3/uL (1.0-4.8) Monocytes # (Auto) 0.5 x10^3/uL (0.0-1.1) Eosinophils # (Auto) 0.0 x10^3/uL (0.0-0.7) Basophils # (Auto) 0.0 x10^3/uL (0.0-0.2) Sodium Level 139 mmol/L (136-145) Potassium Level 3.2 mmol/L (3.5-5.1) Chloride Level 107 mmol/L (98-107) Carbon Dioxide Level 23 mmol/L (21-32) Anion Gap 9 (6-14) Blood Urea Nitrogen 7 mg/dL (7-20) Creatinine 0.5 mg/dL (0.6-1.0) Estimated GFR (Cockcroft-Gault) 166.2 Glucose Level 106 mg/dL (70-99) Calcium Level 7.4 mg/dL (8.5-10.1) Laboratory Tests Test 05/20/17 19:57 05/20/17 20:24 05/20/17 20:25 05/20/17 23:40 Urine Collection Type Unknown Urine Color Juliette Urine Clarity Clear Urine pH 8.0 Urine Specific [place] >=1.030 Urine Protein 100 mg/dL (NEG-TRACE) Urine Glucose (UA) Negative mg/dL (NEG) Urine Ketones (Stick) 40 mg/dL (NEG) Urine Blood Trace (NEG) Urine Nitrite Negative (NEG) Urine Bilirubin Small (NEG) Urine Urobilinogen Dipstick 4.0 mg/dL (0.2 mg/dL) Urine Leukocyte Esterase Small (NEG) Urine RBC 20-40 /HPF (0-2) Urine WBC 1-4 /HPF (0-4) Urine Squamous Epithelial Cells Mod /LPF Urine Bacteria Few /HPF (0-FEW) Urine Mucus Marked /LPF Bedside Urine HCG, Qualitative Hcg negative (Negative) White Blood Count 6.0 x10^3/uL (4.0-11.0) Red Blood Count 4.27 x10^6/uL (3.50-5.40) Hemoglobin 12.4 g/dL (12.0-15.5) Hematocrit 37.2 % (36.0-47.0) Mean Corpuscular Volume 87 fL (79-100) Mean Corpuscular Hemoglobin 29 pg (25-35) Mean Corpuscular Hemoglobin Concent 33 g/dL (31-37) Red Cell Distribution Width 13.6 % (11.5-14.5) Platelet Count 383 x10^3/uL (140-400) Neutrophils (%) (Auto) 82 % (31-73) Lymphocytes (%) (Auto) 14 % (24-48) Monocytes (%) (Auto) 4 % (0-9) Eosinophils (%) (Auto) 1 % (0-3) Basophils (%) (Auto) 0 % (0-3) Neutrophils # (Auto) 4.9 x10^3uL (1.8-7.7) Lymphocytes # (Auto) 0.8 x10^3/uL (1.0-4.8) Monocytes # (Auto) 0.2 x10^3/uL (0.0-1.1) Eosinophils # (Auto) 0.0 x10^3/uL (0.0-0.7) Basophils # (Auto) 0.0 x10^3/uL (0.0-0.2) Prothrombin Time 14.6 SEC (11.7-14.0) Prothromb Time International Ratio 1.2 (0.8-1.1) Activated Partial Thromboplast Time 36 SEC (24-38) Sodium Level 136 mmol/L (136-145) Potassium Level 3.7 mmol/L (3.5-5.1) Chloride Level 101 mmol/L (98-107) Carbon Dioxide Level 26 mmol/L (21-32) Anion Gap 9 (6-14) Blood Urea Nitrogen 11 mg/dL (7-20) Creatinine 0.6 mg/dL (0.6-1.0) Estimated GFR (Cockcroft-Gault) 134.7 BUN/Creatinine Ratio 18 (6-20) Glucose Level 129 mg/dL (70-99) Calcium Level 8.6 mg/dL (8.5-10.1) Total Bilirubin 0.7 mg/dL (0.2-1.0) Aspartate Amino Transf (AST/SGOT) 47 U/L (15-37) Alanine Aminotransferase (ALT/SGPT) 55 U/L (14-59) Alkaline Phosphatase 142 U/L (46-116) Creatine Kinase 88 U/L (26-192) Creatine Kinase MB (Mass) < 0.5 ng/mL (0.0-3.6) Creatine Kinase MB Relative Index % (0-4) Troponin I Quantitative < 0.017 ng/mL (0.000-0.055) Total Protein 7.7 g/dL (6.4-8.2) Albumin 3.1 g/dL (3.4-5.0) Albumin/Globulin Ratio 0.7 (1.0-1.7) Amylase Level 31 U/L (25-115) Lipase 93 U/L (73-393) Lactic Acid Level 0.9 mmol/L (0.4-2.0) Test 05/21/17 01:30 05/21/17 05:00 Lactic Acid Level 0.8 mmol/L (0.4-2.0) White Blood Count 9.1 x10^3/uL (4.0-11.0) Red Blood Count 4.05 x10^6/uL (3.50-5.40) Hemoglobin 11.9 g/dL (12.0-15.5) Hematocrit 35.7 % (36.0-47.0) Mean Corpuscular Volume 88 fL (79-100) Mean Corpuscular Hemoglobin 29 pg (25-35) Mean Corpuscular Hemoglobin Concent 33 g/dL (31-37) Red Cell Distribution Width 14.0 % (11.5-14.5) Platelet Count 349 x10^3/uL (140-400) Neutrophils (%) (Auto) 84 % (31-73) Lymphocytes (%) (Auto) 10 % (24-48) Monocytes (%) (Auto) 6 % (0-9) Eosinophils (%) (Auto) 0 % (0-3) Basophils (%) (Auto) 0 % (0-3) Neutrophils # (Auto) 7.6 x10^3uL (1.8-7.7) Lymphocytes # (Auto) 0.9 x10^3/uL (1.0-4.8) Monocytes # (Auto) 0.5 x10^3/uL (0.0-1.1) Eosinophils # (Auto) 0.0 x10^3/uL (0.0-0.7) Basophils # (Auto) 0.0 x10^3/uL (0.0-0.2) Sodium Level 139 mmol/L (136-145) Potassium Level 3.2 mmol/L (3.5-5.1) Chloride Level 107 mmol/L (98-107) Carbon Dioxide Level 23 mmol/L (21-32) Anion Gap 9 (6-14) Blood Urea Nitrogen 7 mg/dL (7-20) Creatinine 0.5 mg/dL (0.6-1.0) Estimated GFR (Cockcroft-Gault) 166.2 Glucose Level 106 mg/dL (70-99) Calcium Level 7.4 mg/dL (8.5-10.1) VTE Prophylaxis Ordered VTE Prophylaxis Devices: Yes VTE Pharmacological Prophylaxi: Yes Assessment/Plan Assessment/Plan 1, Free intraperit air and mild free fluid - likely perf DU or GAstric ulcer 2. NO reports of smoking, chronci NSAID or steroid use 3. Mild hypokalemia - replace IV PLAn: Admit NPO IVF Sx now LAbs post op Replace K thru IV LOvenox DVT ppx atfer OR dw TRUCK DRIVING REY Holman MD May 21, 2017 10:35
[2017-05-21] MEDS ORDERED: SEVOFLURANE 61 TO 120 MINUTES. IH ONE (10:39)
--- NOTE | 2017-05-21 10:44 | PDOC4 ---
Operative Note Operative Note Date: 05/21/2017 Preoperative diagnosis: Perforated viscus Postoperative diagnosis: Diverticulitis with diverticular abscess Procedure: Diagnostic laparoscopy converted to open laparotomy with abdominal washout and drain placement in the left diverticular abscess Surgeon: Conner Specimen: None Dictation: Patient is a 37-year-old female was matted to the hospital with abdominal pain and a CT scan showing a small amount of free air with free fluid. Procedure of diagnostic laparoscopy possible laparotomy was explained to the patient detail was benefits were also discussed including bleeding infection alternatives this procedure also discussed with the patient seemed understanding gave both verbal and written consent had procedure performed. Taken to the operating room placed in the supine position general anesthesia was initiated once patient was asleep and intubated her abdomen was prepped and draped in usual sterile fashion using ChloraPrep. An area at the umbilicus was injected with quarter percent Marcaine with epinephrine incision was made lead blade scalpel and a varies needle was placed and a pneumoperitoneum was achieved once this was completed final meter port was placed in fibromata camera was placed within the abdomen. Two more 5 mm ports placed under direct visualization one in the right mid abdomen and the left mid abdomen the abdomen was then inspected noted there is quite a bit of free fluid and the small intestines was quite inflamed the area in the left upper quadrant was inspected following the stomach to the duodenum there was no ulceration or inflammation along the stomach or duodenum. Another 5 OmegaPort was placed low in the midline and pelvis this area was suctioned of the fluid and the bowel was run from the cecum to the mid jejunum which point there was too many adhesions to the omentum to be able to fully evaluate the small bowel was felt this time open laparotomy was necessary. The peritoneum was reduced all ports removed midline incision was made through the umbilicus with a 10 blade scalpel this carried down through subcutaneous tissues to the fascia fascia was opened with the electrocautery peritoneum opened with Metzenbaum scissors and further opened with electrocautery gaining access to the abdominal cavity. At this point the small bowel was run from the cecum to the ligament of Treitz well there was quite a few adhesions to the omentum and the bowel was quite inflamed no perforations were noted. Was noted there is quite a few adhesions to the sigmoid colon these were taken down with blunt dissection entering a small area where there was fazal pus consistent with an abscess. One side of the abscess was sigmoid colon and the other small bowel and omentum. The abscess was irrigated and a 19 German JANNET drain was placed through a separate incision in the left lower quadrant placed in this area. No faazl perforations were noted there was no fazal stool from the colon. The abdomen was irrigated with copious amounts of normal saline approximately 5 L. Fascia was then closed with a running oh looped PDS and the skin reapproximated with satya. Patient was waken expanded in the operating room taken recovery in stable condition all sponge instrument needle counts listed as correct estimated blood loss 30 mL. LO CURRIE MD May 21, 2017 10:44
[2017-05-21] MEDS: HYDROmorphone 2 MG/ML VIAL IV PRN ×2 (11:48→12:12)
[2017-05-22] VITALS (16 sets, daily range): BP systolic 102–139; BP diastolic 62–79
[2017-05-22] MEDS: PANTOPRAZOLE SODIUM IV DRIP 80 MG in IV NORMAL SALINE 100ML 100 ML IV SCH (04:17)
[2017-05-22] MEDS: PIPERACILLIN/TAZOBACTAM 3.375 GM in IV NORMAL SALINE 50ML 50 ML IV SCH ×3 (05:30→17:48)
[2017-05-22 06:30] LABS: BASO % 0 % (0-3); EOS % 0 % (0-3); HEMATOCRIT 33.8 % (36.0-47.0); HEMOGLOBIN 11.2 g/dL (12.0-15.5); LYMPH # 0.6 x10^3/uL (1.0-4.8); LYMPH % 4 % (24-48); MEAN CORPUSCULAR HEMOGLOBIN 29 pg (25-35); MEAN CORPUSCULAR HGB CONC 33 g/dL (31-37); MEAN CORPUSCULAR VOLUME 87 fL (79-100); MONO % 5 % (0-9); NEUT % 91 % (31-73); PLATELET COUNT 379 x10^3/uL (140-400); RED BLOOD COUNT 3.87 x10^6/uL (3.50-5.40); WHITE BLOOD COUNT 14.8 x10^3/uL (4.0-11.0)
[2017-05-22 06:33] LABS: CREATININE 0.3 mg/dL (0.6-1.0); GFR 299.7; POTASSIUM 3.7 mmol/L (3.5-5.1)
[2017-05-22] MEDS ORDERED: hydrALAZINE 20 MG/ML VIAL. IVP PRN (08:45)
[2017-05-22] MEDS ORDERED: DOCUSATE SODIUM 100 MG CAPSULE. PO PRN (08:45)
[2017-05-22] MEDS ORDERED: ONDANSETRON PF 4 MG/2 ML VIAL. IV PRN (08:45)
[2017-05-22] MEDS ORDERED: MORPHINE SULFATE 2 MG/ML DISP.SYRIN. IV PRN (08:45)
[2017-05-22] MEDS ORDERED: ACETAMINOPHEN 325 MG TABLET. PO PRN (08:45)
[2017-05-22] MEDS: AMINO AC 3%/ELECTROLYTE/GLYCER 1,000 ML IV SCH (09:31)
[2017-05-22 10:19] LABS: PLT ESTIMATE ADEQUATE (ADEQUATE)
[2017-05-22] MEDS: ENOXAPARIN 40 MG/0.4 ML SYRINGE. SQ SCH (10:30)
--- NOTE | 2017-05-22 10:51 | PDOC ---
SURGICAL PROGRESS NOTE Subjective Pt without c/o, no flatus, pain controlled Vital Signs Vital Signs Date Time Temp Pulse Resp B/P (MAP) Pulse Ox O2 Delivery O2 Flow Rate FiO2 05/22/17 10:00 18 122/70 (87) 100 Nasal Cannula 2.0 05/22/17 09:00 91 05/22/17 07:00 97.5 97.5 I&O Intake and Output 05/23/17 06:59 Output Total 200 ml Balance -200 ml Output Urine Total 200 ml PATIENT HAS A GRANGER: Yes (dc today) General: Alert, Oriented X3, Cooperative, No acute distress Abdomen: Soft, No tenderness, Other (dressing c/d/i, JANNET serosang) Labs Laboratory Tests Test 05/20/17 19:57 05/20/17 20:24 05/20/17 20:25 05/20/17 23:40 Urine Collection Type Unknown Urine Color Juliette Urine Clarity Clear Urine pH 8.0 Urine Specific [place] >=1.030 Urine Protein 100 mg/dL (NEG-TRACE) Urine Glucose (UA) Negative mg/dL (NEG) Urine Ketones (Stick) 40 mg/dL (NEG) Urine Blood Trace (NEG) Urine Nitrite Negative (NEG) Urine Bilirubin Small (NEG) Urine Urobilinogen Dipstick 4.0 mg/dL (0.2 mg/dL) Urine Leukocyte Esterase Small (NEG) Urine RBC 20-40 /HPF (0-2) Urine WBC 1-4 /HPF (0-4) Urine Squamous Epithelial Cells Mod /LPF Urine Bacteria Few /HPF (0-FEW) Urine Mucus Marked /LPF Bedside Urine HCG, Qualitative Hcg negative (Negative) White Blood Count 6.0 x10^3/uL (4.0-11.0) Red Blood Count 4.27 x10^6/uL (3.50-5.40) Hemoglobin 12.4 g/dL (12.0-15.5) Hematocrit 37.2 % (36.0-47.0) Mean Corpuscular Volume 87 fL (79-100) Mean Corpuscular Hemoglobin 29 pg (25-35) Mean Corpuscular Hemoglobin Concent 33 g/dL (31-37) Red Cell Distribution Width 13.6 % (11.5-14.5) Platelet Count 383 x10^3/uL (140-400) Neutrophils (%) (Auto) 82 % (31-73) Lymphocytes (%) (Auto) 14 % (24-48) Monocytes (%) (Auto) 4 % (0-9) Eosinophils (%) (Auto) 1 % (0-3) Basophils (%) (Auto) 0 % (0-3) Neutrophils # (Auto) 4.9 x10^3uL (1.8-7.7) Lymphocytes # (Auto) 0.8 x10^3/uL (1.0-4.8) Monocytes # (Auto) 0.2 x10^3/uL (0.0-1.1) Eosinophils # (Auto) 0.0 x10^3/uL (0.0-0.7) Basophils # (Auto) 0.0 x10^3/uL (0.0-0.2) Prothrombin Time 14.6 SEC (11.7-14.0) Prothromb Time International Ratio 1.2 (0.8-1.1) Activated Partial Thromboplast Time 36 SEC (24-38) Sodium Level 136 mmol/L (136-145) Potassium Level 3.7 mmol/L (3.5-5.1) Chloride Level 101 mmol/L (98-107) Carbon Dioxide Level 26 mmol/L (21-32) Anion Gap 9 (6-14) Blood Urea Nitrogen 11 mg/dL (7-20) Creatinine 0.6 mg/dL (0.6-1.0) Estimated GFR (Cockcroft-Gault) 134.7 BUN/Creatinine Ratio 18 (6-20) Glucose Level 129 mg/dL (70-99) Calcium Level 8.6 mg/dL (8.5-10.1) Total Bilirubin 0.7 mg/dL (0.2-1.0) Aspartate Amino Transf (AST/SGOT) 47 U/L (15-37) Alanine Aminotransferase (ALT/SGPT) 55 U/L (14-59) Alkaline Phosphatase 142 U/L (46-116) Creatine Kinase 88 U/L (26-192) Creatine Kinase MB (Mass) < 0.5 ng/mL (0.0-3.6) Creatine Kinase MB Relative Index % (0-4) Troponin I Quantitative < 0.017 ng/mL (0.000-0.055) Total Protein 7.7 g/dL (6.4-8.2) Albumin 3.1 g/dL (3.4-5.0) Albumin/Globulin Ratio 0.7 (1.0-1.7) Amylase Level 31 U/L (25-115) Lipase 93 U/L (73-393) Lactic Acid Level 0.9 mmol/L (0.4-2.0) Test 05/21/17 00:05 05/21/17 01:30 05/21/17 05:00 05/22/17 03:45 Nasal Screen MRSA (PCR) Negative (Negative) Lactic Acid Level 0.8 mmol/L (0.4-2.0) White Blood Count 9.1 x10^3/uL (4.0-11.0) 14.8 x10^3/uL (4.0-11.0) Red Blood Count 4.05 x10^6/uL (3.50-5.40) 3.87 x10^6/uL (3.50-5.40) Hemoglobin 11.9 g/dL (12.0-15.5) 11.2 g/dL (12.0-15.5) Hematocrit 35.7 % (36.0-47.0) 33.8 % (36.0-47.0) Mean Corpuscular Volume 88 fL (79-100) 87 fL (79-100) Mean Corpuscular Hemoglobin 29 pg (25-35) 29 pg (25-35) Mean Corpuscular Hemoglobin Concent 33 g/dL (31-37) 33 g/dL (31-37) Red Cell Distribution Width 14.0 % (11.5-14.5) 14.0 % (11.5-14.5) Platelet Count 349 x10^3/uL (140-400) 379 x10^3/uL (140-400) Neutrophils (%) (Auto) 84 % (31-73) 91 % (31-73) Lymphocytes (%) (Auto) 10 % (24-48) 4 % (24-48) Monocytes (%) (Auto) 6 % (0-9) 5 % (0-9) Eosinophils (%) (Auto) 0 % (0-3) 0 % (0-3) Basophils (%) (Auto) 0 % (0-3) 0 % (0-3) Neutrophils # (Auto) 7.6 x10^3uL (1.8-7.7) 13.5 x10^3uL (1.8-7.7) Lymphocytes # (Auto) 0.9 x10^3/uL (1.0-4.8) 0.6 x10^3/uL (1.0-4.8) Monocytes # (Auto) 0.5 x10^3/uL (0.0-1.1) 0.7 x10^3/uL (0.0-1.1) Eosinophils # (Auto) 0.0 x10^3/uL (0.0-0.7) 0.0 x10^3/uL (0.0-0.7) Basophils # (Auto) 0.0 x10^3/uL (0.0-0.2) 0.0 x10^3/uL (0.0-0.2) Sodium Level 139 mmol/L (136-145) 139 mmol/L (136-145) Potassium Level 3.2 mmol/L (3.5-5.1) 3.7 mmol/L (3.5-5.1) Chloride Level 107 mmol/L (98-107) 108 mmol/L (98-107) Carbon Dioxide Level 23 mmol/L (21-32) 20 mmol/L (21-32) Anion Gap 9 (6-14) 11 (6-14) Blood Urea Nitrogen 7 mg/dL (7-20) 8 mg/dL (7-20) Creatinine 0.5 mg/dL (0.6-1.0) 0.3 mg/dL (0.6-1.0) Estimated GFR (Cockcroft-Gault) 166.2 299.7 Glucose Level 106 mg/dL (70-99) 125 mg/dL (70-99) Calcium Level 7.4 mg/dL (8.5-10.1) 8.0 mg/dL (8.5-10.1) Segmented Neutrophils % 75 % (35-66) Band Neutrophils % 20 % (0-9) Lymphocytes % 1 % (24-48) Monocytes % 4 % (0-10) Platelet Estimate Adequate (ADEQUATE) Laboratory Tests Test 05/22/17 03:45 White Blood Count 14.8 x10^3/uL (4.0-11.0) Red Blood Count 3.87 x10^6/uL (3.50-5.40) Hemoglobin 11.2 g/dL (12.0-15.5) Hematocrit 33.8 % (36.0-47.0) Mean Corpuscular Volume 87 fL (79-100) Mean Corpuscular Hemoglobin 29 pg (25-35) Mean Corpuscular Hemoglobin Concent 33 g/dL (31-37) Red Cell Distribution Width 14.0 % (11.5-14.5) Platelet Count 379 x10^3/uL (140-400) Neutrophils (%) (Auto) 91 % (31-73) Lymphocytes (%) (Auto) 4 % (24-48) Monocytes (%) (Auto) 5 % (0-9) Eosinophils (%) (Auto) 0 % (0-3) Basophils (%) (Auto) 0 % (0-3) Neutrophils # (Auto) 13.5 x10^3uL (1.8-7.7) Lymphocytes # (Auto) 0.6 x10^3/uL (1.0-4.8) Monocytes # (Auto) 0.7 x10^3/uL (0.0-1.1) Eosinophils # (Auto) 0.0 x10^3/uL (0.0-0.7) Basophils # (Auto) 0.0 x10^3/uL (0.0-0.2) Segmented Neutrophils % 75 % (35-66) Band Neutrophils % 20 % (0-9) Lymphocytes % 1 % (24-48) Monocytes % 4 % (0-10) Platelet Estimate Adequate (ADEQUATE) Sodium Level 139 mmol/L (136-145) Potassium Level 3.7 mmol/L (3.5-5.1) Chloride Level 108 mmol/L (98-107) Carbon Dioxide Level 20 mmol/L (21-32) Anion Gap 11 (6-14) Blood Urea Nitrogen 8 mg/dL (7-20) Creatinine 0.3 mg/dL (0.6-1.0) Estimated GFR (Cockcroft-Gault) 299.7 Glucose Level 125 mg/dL (70-99) Calcium Level 8.0 mg/dL (8.5-10.1) Problem List s/p xlap and washout d/c NGT and granger OCYNTHIA clears OK to transfer to floor Problems: TERRIE ESPOSITO MD May 22, 2017 10:51
[2017-05-22] MEDS: traMADol 50 MG TABLET PO PRN ×2 (12:35→21:05)
--- NOTE | 2017-05-22 13:10 | PDOC ---
PROGRESS NOTES Chief Complaint Chief Complaint 1, abd pain with CT showing free intraperit air and mild free fluid s/p open laparotomy for diverticulitis with diverticular abcess, VELASQUEZ drain 2. NO reports of smoking, chronci NSAID or steroid use 3. Mild hypokalemia - replace IV obesity sepsis plan: fu with sx cont VELASQUEZ clear liquid as per sx add ppn dc protonix drip add gi ppx dvt ppx on zosyn, flagyl labs tmr History of Present Illness History of Present Illness ROS: no fever, chills, sob or chest pain on NGT [place]anger, no N/V + abd pain has 1 Velasquez drain 65cc overnight no flatus or BM Vitals Vitals Vital Signs Date Time Temp Pulse Resp B/P (MAP) Pulse Ox O2 Delivery O2 Flow Rate FiO2 05/22/17 12:35 16 Room Air 05/22/17 12:27 98.4 96 108/64 (79) 96 98.4 05/22/17 10:00 2.0 Physical Exam General: Alert, Oriented X3, Cooperative, No acute distress Heart: Regular rate, Normal S1, Normal S2, No murmurs Lungs: Clear Abdomen: Normal bowel sounds, Soft, No tenderness, Other (dressing c/d/i, VELASQUEZ serosang) Extremities: No clubbing, No cyanosis, No edema Skin: No rashes, No significant lesion Labs LABS Laboratory Tests Test 05/22/17 03:45 White Blood Count 14.8 x10^3/uL (4.0-11.0) Red Blood Count 3.87 x10^6/uL (3.50-5.40) Hemoglobin 11.2 g/dL (12.0-15.5) Hematocrit 33.8 % (36.0-47.0) Mean Corpuscular Volume 87 fL (79-100) Mean Corpuscular Hemoglobin 29 pg (25-35) Mean Corpuscular Hemoglobin Concent 33 g/dL (31-37) Red Cell Distribution Width 14.0 % (11.5-14.5) Platelet Count 379 x10^3/uL (140-400) Neutrophils (%) (Auto) 91 % (31-73) Lymphocytes (%) (Auto) 4 % (24-48) Monocytes (%) (Auto) 5 % (0-9) Eosinophils (%) (Auto) 0 % (0-3) Basophils (%) (Auto) 0 % (0-3) Neutrophils # (Auto) 13.5 x10^3uL (1.8-7.7) Lymphocytes # (Auto) 0.6 x10^3/uL (1.0-4.8) Monocytes # (Auto) 0.7 x10^3/uL (0.0-1.1) Eosinophils # (Auto) 0.0 x10^3/uL (0.0-0.7) Basophils # (Auto) 0.0 x10^3/uL (0.0-0.2) Segmented Neutrophils % 75 % (35-66) Band Neutrophils % 20 % (0-9) Lymphocytes % 1 % (24-48) Monocytes % 4 % (0-10) Platelet Estimate Adequate (ADEQUATE) Sodium Level 139 mmol/L (136-145) Potassium Level 3.7 mmol/L (3.5-5.1) Chloride Level 108 mmol/L (98-107) Carbon Dioxide Level 20 mmol/L (21-32) Anion Gap 11 (6-14) Blood Urea Nitrogen 8 mg/dL (7-20) Creatinine 0.3 mg/dL (0.6-1.0) Estimated GFR (Cockcroft-Gault) 299.7 Glucose Level 125 mg/dL (70-99) Calcium Level 8.0 mg/dL (8.5-10.1) Comment Review of Relevant I have reviewed the following items enoc (where applicable) has been applied. Labs Laboratory Tests Test 05/20/17 19:57 05/20/17 20:24 05/20/17 20:25 05/20/17 23:40 Urine Collection Type Unknown Urine Color Juliette Urine Clarity Clear Urine pH 8.0 Urine Specific [place] >=1.030 Urine Protein 100 mg/dL (NEG-TRACE) Urine Glucose (UA) Negative mg/dL (NEG) Urine Ketones (Stick) 40 mg/dL (NEG) Urine Blood Trace (NEG) Urine Nitrite Negative (NEG) Urine Bilirubin Small (NEG) Urine Urobilinogen Dipstick 4.0 mg/dL (0.2 mg/dL) Urine Leukocyte Esterase Small (NEG) Urine RBC 20-40 /HPF (0-2) Urine WBC 1-4 /HPF (0-4) Urine Squamous Epithelial Cells Mod /LPF Urine Bacteria Few /HPF (0-FEW) Urine Mucus Marked /LPF Bedside Urine HCG, Qualitative Hcg negative (Negative) White Blood Count 6.0 x10^3/uL (4.0-11.0) Red Blood Count 4.27 x10^6/uL (3.50-5.40) Hemoglobin 12.4 g/dL (12.0-15.5) Hematocrit 37.2 % (36.0-47.0) Mean Corpuscular Volume 87 fL (79-100) Mean Corpuscular Hemoglobin 29 pg (25-35) Mean Corpuscular Hemoglobin Concent 33 g/dL (31-37) Red Cell Distribution Width 13.6 % (11.5-14.5) Platelet Count 383 x10^3/uL (140-400) Neutrophils (%) (Auto) 82 % (31-73) Lymphocytes (%) (Auto) 14 % (24-48) Monocytes (%) (Auto) 4 % (0-9) Eosinophils (%) (Auto) 1 % (0-3) Basophils (%) (Auto) 0 % (0-3) Neutrophils # (Auto) 4.9 x10^3uL (1.8-7.7) Lymphocytes # (Auto) 0.8 x10^3/uL (1.0-4.8) Monocytes # (Auto) 0.2 x10^3/uL (0.0-1.1) Eosinophils # (Auto) 0.0 x10^3/uL (0.0-0.7) Basophils # (Auto) 0.0 x10^3/uL (0.0-0.2) Prothrombin Time 14.6 SEC (11.7-14.0) Prothromb Time International Ratio 1.2 (0.8-1.1) Activated Partial Thromboplast Time 36 SEC (24-38) Sodium Level 136 mmol/L (136-145) Potassium Level 3.7 mmol/L (3.5-5.1) Chloride Level 101 mmol/L (98-107) Carbon Dioxide Level 26 mmol/L (21-32) Anion Gap 9 (6-14) Blood Urea Nitrogen 11 mg/dL (7-20) Creatinine 0.6 mg/dL (0.6-1.0) Estimated GFR (Cockcroft-Gault) 134.7 BUN/Creatinine Ratio 18 (6-20) Glucose Level 129 mg/dL (70-99) Calcium Level 8.6 mg/dL (8.5-10.1) Total Bilirubin 0.7 mg/dL (0.2-1.0) Aspartate Amino Transf (AST/SGOT) 47 U/L (15-37) Alanine Aminotransferase (ALT/SGPT) 55 U/L (14-59) Alkaline Phosphatase 142 U/L (46-116) Creatine Kinase 88 U/L (26-192) Creatine Kinase MB (Mass) < 0.5 ng/mL (0.0-3.6) Creatine Kinase MB Relative Index % (0-4) Troponin I Quantitative < 0.017 ng/mL (0.000-0.055) Total Protein 7.7 g/dL (6.4-8.2) Albumin 3.1 g/dL (3.4-5.0) Albumin/Globulin Ratio 0.7 (1.0-1.7) Amylase Level 31 U/L (25-115) Lipase 93 U/L (73-393) Lactic Acid Level 0.9 mmol/L (0.4-2.0) Test 05/21/17 00:05 05/21/17 01:30 05/21/17 05:00 05/22/17 03:45 Nasal Screen MRSA (PCR) Negative (Negative) Lactic Acid Level 0.8 mmol/L (0.4-2.0) White Blood Count 9.1 x10^3/uL (4.0-11.0) 14.8 x10^3/uL (4.0-11.0) Red Blood Count 4.05 x10^6/uL (3.50-5.40) 3.87 x10^6/uL (3.50-5.40) Hemoglobin 11.9 g/dL (12.0-15.5) 11.2 g/dL (12.0-15.5) Hematocrit 35.7 % (36.0-47.0) 33.8 % (36.0-47.0) Mean Corpuscular Volume 88 fL (79-100) 87 fL (79-100) Mean Corpuscular Hemoglobin 29 pg (25-35) 29 pg (25-35) Mean Corpuscular Hemoglobin Concent 33 g/dL (31-37) 33 g/dL (31-37) Red Cell Distribution Width 14.0 % (11.5-14.5) 14.0 % (11.5-14.5) Platelet Count 349 x10^3/uL (140-400) 379 x10^3/uL (140-400) Neutrophils (%) (Auto) 84 % (31-73) 91 % (31-73) Lymphocytes (%) (Auto) 10 % (24-48) 4 % (24-48) Monocytes (%) (Auto) 6 % (0-9) 5 % (0-9) Eosinophils (%) (Auto) 0 % (0-3) 0 % (0-3) Basophils (%) (Auto) 0 % (0-3) 0 % (0-3) Neutrophils # (Auto) 7.6 x10^3uL (1.8-7.7) 13.5 x10^3uL (1.8-7.7) Lymphocytes # (Auto) 0.9 x10^3/uL (1.0-4.8) 0.6 x10^3/uL (1.0-4.8) Monocytes # (Auto) 0.5 x10^3/uL (0.0-1.1) 0.7 x10^3/uL (0.0-1.1) Eosinophils # (Auto) 0.0 x10^3/uL (0.0-0.7) 0.0 x10^3/uL (0.0-0.7) Basophils # (Auto) 0.0 x10^3/uL (0.0-0.2) 0.0 x10^3/uL (0.0-0.2) Sodium Level 139 mmol/L (136-145) 139 mmol/L (136-145) Potassium Level 3.2 mmol/L (3.5-5.1) 3.7 mmol/L (3.5-5.1) Chloride Level 107 mmol/L (98-107) 108 mmol/L (98-107) Carbon Dioxide Level 23 mmol/L (21-32) 20 mmol/L (21-32) Anion Gap 9 (6-14) 11 (6-14) Blood Urea Nitrogen 7 mg/dL (7-20) 8 mg/dL (7-20) Creatinine 0.5 mg/dL (0.6-1.0) 0.3 mg/dL (0.6-1.0) Estimated GFR (Cockcroft-Gault) 166.2 299.7 Glucose Level 106 mg/dL (70-99) 125 mg/dL (70-99) Calcium Level 7.4 mg/dL (8.5-10.1) 8.0 mg/dL (8.5-10.1) Segmented Neutrophils % 75 % (35-66) Band Neutrophils % 20 % (0-9) Lymphocytes % 1 % (24-48) Monocytes % 4 % (0-10) Platelet Estimate Adequate (ADEQUATE) Laboratory Tests Test 05/22/17 03:45 White Blood Count 14.8 x10^3/uL (4.0-11.0) Red Blood Count 3.87 x10^6/uL (3.50-5.40) Hemoglobin 11.2 g/dL (12.0-15.5) Hematocrit 33.8 % (36.0-47.0) Mean Corpuscular Volume 87 fL (79-100) Mean Corpuscular Hemoglobin 29 pg (25-35) Mean Corpuscular Hemoglobin Concent 33 g/dL (31-37) Red Cell Distribution Width 14.0 % (11.5-14.5) Platelet Count 379 x10^3/uL (140-400) Neutrophils (%) (Auto) 91 % (31-73) Lymphocytes (%) (Auto) 4 % (24-48) Monocytes (%) (Auto) 5 % (0-9) Eosinophils (%) (Auto) 0 % (0-3) Basophils (%) (Auto) 0 % (0-3) Neutrophils # (Auto) 13.5 x10^3uL (1.8-7.7) Lymphocytes # (Auto) 0.6 x10^3/uL (1.0-4.8) Monocytes # (Auto) 0.7 x10^3/uL (0.0-1.1) Eosinophils # (Auto) 0.0 x10^3/uL (0.0-0.7) Basophils # (Auto) 0.0 x10^3/uL (0.0-0.2) Segmented Neutrophils % 75 % (35-66) Band Neutrophils % 20 % (0-9) Lymphocytes % 1 % (24-48) Monocytes % 4 % (0-10) Platelet Estimate Adequate (ADEQUATE) Sodium Level 139 mmol/L (136-145) Potassium Level 3.7 mmol/L (3.5-5.1) Chloride Level 108 mmol/L (98-107) Carbon Dioxide Level 20 mmol/L (21-32) Anion Gap 11 (6-14) Blood Urea Nitrogen 8 mg/dL (7-20) Creatinine 0.3 mg/dL (0.6-1.0) Estimated GFR (Cockcroft-Gault) 299.7 Glucose Level 125 mg/dL (70-99) Calcium Level 8.0 mg/dL (8.5-10.1) Microbiology 05/20/17 Urine Culture - Final, Complete 05/20/17 Urine Culture Result 1 (ANDREINA) - Final, Complete Medications Current Medications Sodium Chloride 1,000 ml @ 1,000 mls/hr 1X ONCE IV Last administered on 20:40; Start 05/20/17 at 20:30; Stop 05/20/17 at 21:29; Status DC Ondansetron HCl (Zofran) 4 mg 1X ONCE IV Last administered on 05/20/17 20:47 ; Start 05/20/17 at 20:45; Stop 05/20/17 at 20:46; Status DC Fentanyl Citrate (Fentanyl 2ml Vial) 50 mcg 1X ONCE IV Last administered on 20:47; Start 05/20/17 at 20:45; Stop 05/20/17 at 20:46; Status DC Iohexol (Omnipaque 300 Mg/ml) 75 ml 1X ONCE IV Last administered on 05/20/17 21:21; Start 05/20/17 at 21:00; Stop 05/20/17 at 21:01; Status DC Info (Do NOT chart on this entry -- for MONITORING) 1 each PRN DAILY PRN MC SEE COMMENTS; Start 05/20/17 at 21:00; Stop 05/22/17 at 20:59 Piperacillin Sod/ Tazobactam Sod 3.375 gm/Sodium Chloride 50 ml @ 100 mls/hr 1X ONCE IV Last administered on 05/20/17 22:42; Start 05/20/17 at 22:30; Stop 05/20/17 at 22:59; Status DC Ondansetron HCl (Zofran) 4 mg PRN Q8HRS PRN IV NAUSEA/VOMITING; Start 05/20/17 at 22:30; Stop 05/21/17 at 22:29; Status DC Fentanyl Citrate (Fentanyl 2ml Vial) 50 mcg PRN Q1HR PRN IV PAIN Last administered on 05/21/17 22:16; Start 05/20/17 at 22:30; Stop 05/21/17 at 22:29 ; Status DC Sodium Chloride 1,000 ml @ 125 mls/hr Q8H IV Last administered on 05/21/17 12 :56; Start 05/20/17 at 22:30; Stop 05/21/17 at 22:29; Status DC Piperacillin Sod/ Tazobactam Sod (Zosyn Per Pharmacy) 1 each PRN DAILY PRN MC SEE COMMENTS; Start 05/20/17 at 22:30 Pantoprazole Sodium (Protonix Vial) 40 mg 1X ONCE IVP Last administered on 22:54; Start 05/20/17 at 22:45; Stop 05/20/17 at 22:46; Status DC Pantoprazole Sodium 80 mg/ Sodium Chloride 100 ml @ 10 mls/hr 1X ONCE IV Last administered on 05/20/17 22:54; Start 05/20/17 at 22:45; Stop 05/21/17 at 08:44; Status DC Sodium Chloride 1,000 ml @ 1,000 mls/hr 1X ONCE IV Last administered on 22:54; Start 05/20/17 at 22:30; Stop 05/20/17 at 23:29; Status DC Piperacillin Sod/ Tazobactam Sod 3.375 gm/Sodium Chloride 50 ml @ 100 mls/hr Q6HRS IV Last administered on 05/22/17 11:18; Start 05/21/17 at 06:00 Info (Do NOT chart on this placeholder) 1 each 1X ONCE MC ; Start 05/21/17 at 01:30; Stop 05/21/17 at 01:31; Status UNV Influenza Virus Vaccine Quadrival (Fluarix Quad [id number] Syringe) 0.5 ml ONCE ONCE VAX IM Last administered on 05/22/17 11:05; Start 05/21/17 at 09:00; Stop 05/21/17 at 09:01; Status DC Pantoprazole Sodium 80 mg/ Sodium Chloride 100 ml @ 10 mls/hr Q10H IV Last administered on 05/22/17 04:17; Start 05/21/17 at 06:45; Stop 05/22/17 at 08:41 ; Status DC Ondansetron HCl (Zofran) 4 mg PRN Q6HRS PRN IV NAUSEA/VOMITING; Start 05/21/17 at 07:30; Stop 05/21/17 at 19:00; Status DC Fentanyl Citrate (Fentanyl 2ml Vial) 25 mcg PRN Q5MIN PRN IV MILD PAIN; Start 05/21/17 at 07:30; Stop 05/21/17 at 19:00; Status DC Fentanyl Citrate (Fentanyl 2ml Vial) 50 mcg PRN Q5MIN PRN IV MODERATE PAIN Last administered on 05/21/17 11:35; Start 05/21/17 at 07:30; Stop 05/21/17 at 19:00; Status DC Morphine Sulfate 1 mg PRN Q10MIN PRN IV SEVERE PAIN; Start 05/21/17 at 07:30; Stop 05/21/17 at 19:00; Status DC Ringer's Solution 1,000 ml @ 30 mls/hr Q24H IV Last administered on 05/21/17 07:19; Start 05/21/17 at 07:19; Stop 05/21/17 at 19:18; Status DC Lidocaine HCl (Xylocaine-Mpf 1% Vial) 2 ml 1X PRN PRN ID IV START; Start at 07:30; Stop 05/21/17 at 19:00; Status DC Hydromorphone HCl (Dilaudid) 0.5 mg PRN Q10MIN PRN IV SEV PAIN, Second choice Last administered on 05/21/17 12:12; Start 05/21/17 at 07:30; Stop 05/21/17 at 19:00; Status DC Prochlorperazine Edisylate (Compazine) 5 mg PACU PRN PRN IV NAUSEA, MRX1; Start 05/21/17 at 07:30; Stop 05/21/17 at 19:00; Status DC Bupivacaine HCl/ Epinephrine Bitart (Sensorcaine-Epi 0.25%-1:[id number] Mpf) 30 ml STK-MED ONCE .ROUTE Last administered on 05/21/17 10:09; Start 05/21/17 at 06: 48; Stop 05/21/17 at 07:48; Status DC Propofol 20 ml @ As Directed STK-MED ONCE IV ; Start 05/21/17 at 09:00; Stop at 09:01; Status DC Lidocaine HCl (Lidocaine Pf 2% Vial) 5 ml STK-MED ONCE .ROUTE ; Start 05/21/17 at 09:00; Stop 05/21/17 at 09:01; Status DC Rocuronium [place] (Zemuron) 100 mg STK-MED ONCE .ROUTE ; Start 05/21/17 at 09: 00; Stop 05/21/17 at 09:01; Status DC Succinylcholine Chloride (Anectine) 200 mg STK-MED ONCE .ROUTE ; Start 05/21/17 at 09:00; Stop 05/21/17 at 09:01; Status DC Midazolam HCl (Versed) 2 mg STK-MED ONCE .ROUTE ; Start 05/21/17 at 09:00; Stop 05/21/17 at 09:01; Status DC Fentanyl Citrate (Fentanyl 2ml Vial) 100 mcg STK-MED ONCE .ROUTE ; Start at 09:00; Stop 05/21/17 at 09:01; Status DC Potassium Chloride 100 ml @ 100 mls/hr Q1H IV Last administered on 05/21/17 16:36; Start 05/21/17 at 10:00; Stop 05/21/17 at 13:59; Status DC Morphine Sulfate 2 mg PRN Q2HR PRN IV PAIN Last administered on 05/22/17 04:17 ; Start 05/21/17 at 09:30 Neostigmine Methylsulfate 5 mg STK-MED ONCE .ROUTE ; Start 05/21/17 at 09:52; Stop 05/21/17 at 09:53; Status DC Glycopyrrolate (Robinul) 1 mg STK-MED ONCE .ROUTE ; Start 05/21/17 at 09:52; Stop 05/21/17 at 09:53; Status DC Phenylephrine HCl 1 mg STK-MED ONCE IV ; Start 05/21/17 at 09:52; Stop 05/21/17 at 09:53; Status DC Fentanyl Citrate (Fentanyl 2ml Vial) 100 mcg STK-MED ONCE .ROUTE ; Start at 10:03; Stop 05/21/17 at 10:04; Status DC Fentanyl Citrate (Fentanyl 2ml Vial) 100 mcg STK-MED ONCE .ROUTE ; Start at 10:37; Stop 05/21/17 at 10:38; Status DC Sevoflurane (Ultane) 60 ml STK-MED ONCE IH ; Start 05/21/17 at 10:39; Stop 05/21 at 10:40; Status DC Ringer's Solution 1,000 ml @ 150 mls/hr Q6H40M IV ; Start 05/21/17 at 10:45; Stop 05/21/17 at 15:35; Status DC Metronidazole 100 ml @ 100 mls/hr Q8HRS IV Last administered on 05/22/17 06: 09; Start 05/21/17 at 14:00 Amino Acids/ Glycerin/ Electrolytes 1,000 ml @ 80 mls/hr [id number] IV Last administered on 05/22/17 09:31; Start 05/22/17 at 08:45 Acetaminophen (Tylenol) 650 mg PRN Q6HRS PRN PO FEVER; Start 05/22/17 at 08:45 Ondansetron HCl (Zofran) 4 mg PRN Q6HRS PRN IV NAUSEA/VOMITING; Start 05/22/17 at 08:45 Morphine Sulfate 2 mg PRN Q2HR PRN IV PAIN; Start 05/22/17 at 08:45 Tramadol HCl (Ultram) 50 mg PRN Q6HRS PRN PO PAIN Last administered on 12:35; Start 05/22/17 at 08:45 Hydralazine HCl (Apresoline) 10 mg PRN Q4HRS PRN IVP ELEVATED BP, SEE COMMENTS ; Start 05/22/17 at 08:45 Docusate Sodium (Colace) 100 mg PRN DAILY PRN PO CONSTIPATION; Start 05/22/17 at 08:45 Famotidine (Pepcid) 20 mg QHS IVP ; Start 05/22/17 at 21:00 Enoxaparin Sodium (Lovenox 40mg Syringe) 40 mg DAILY SQ Last administered on t 10:30; Start 05/22/17 at 09:00 Active Scripts Active Reported No Known Medications Prior To Admisstion (Info) Each 1 Each Vitals/I & O Vital Sign - Last 24 Hours 05/21/17 05/21/17 05/21/17 05/21/17 14:00 15:00 16:00 16:00 Temp 98.6 98.6 Pulse 104 93 108 Resp 20 18 20 B/P (MAP) 101/58 (72) 98/53 (68) 94/59 (71) Pulse Ox 96 99 99 O2 Delivery Nasal Cannula Nasal Cannula Nasal Cannula Nasal Cannula O2 Flow Rate 3.0 3.0 3 3.0 05/21/17 05/21/17 05/21/17 05/21/17 17:00 18:00 18:05 18:31 Pulse 109 98 Resp 20 20 22 20 B/P (MAP) 105/61 (76) 111/61 (78) Pulse Ox 99 99 99 99 O2 Delivery Nasal Cannula Nasal Cannula Nasal Cannula Nasal Cannula O2 Flow Rate 3.0 3.0 2.0 2.0 05/21/17 05/21/17 05/21/17 05/21/17 19:00 20:00 20:06 21:00 Temp 98.6 98.6 Pulse 108 98 111 Resp 18 18 18 B/P (MAP) 114/67 (83) 109/62 (78) 115/69 (84) Pulse Ox 98 98 98 O2 Delivery Nasal Cannula Nasal Cannula Nasal Cannula Nasal Cannula O2 Flow Rate 2.0 2.0 3 2.0 05/21/17 05/21/17 05/21/17 05/21/17 22:00 22:16 23:00 23:48 Temp 98.4 98.4 Pulse 111 114 Resp 18 18 B/P (MAP) 111/64 (80) 114/67 (83) Pulse Ox 98 98 98 O2 Delivery Nasal Cannula Nasal Cannula Nasal Cannula Nasal Cannula O2 Flow Rate 2.0 2.0 2.0 2.0 05/22/17 05/22/17 05/22/17 05/22/17 00:00 01:00 02:00 03:00 Pulse 94 108 100 100 Resp 18 18 18 18 B/P (MAP) 108/62 (77) 102/62 (75) 110/62 (78) 107/70 (82) Pulse Ox 98 98 99 99 O2 Delivery Nasal Cannula Nasal Cannula Nasal Cannula Nasal Cannula O2 Flow Rate 2.0 2.0 2.0 2.0 05/22/17 05/22/17 05/22/17 05/22/17 03:38 04:00 04:17 04:47 Temp 98.2 98.2 Pulse 94 Resp 18 14 B/P (MAP) 125/72 (89) Pulse Ox 99 98 98 O2 Delivery Nasal Cannula Nasal Cannula Nasal Cannula Nasal Cannula O2 Flow Rate 2.0 2.0 2.0 2.0 05/22/17 05/22/17 05/22/17 05/22/17 05:00 06:00 07:00 07:46 Temp 97.5 97.5 Pulse 98 96 105 Resp 20 18 20 B/P (MAP) 114/73 (87) 109/71 (84) 119/70 (86) Pulse Ox 99 99 98 O2 Delivery Nasal Cannula Nasal Cannula Room Air Room Air O2 Flow Rate 2.0 2.0 05/22/17 05/22/17 05/22/17 05/22/17 08:00 09:00 10:00 11:00 Pulse 99 91 98 Resp 18 18 18 18 B/P (MAP) 139/79 (99) 112/77 (89) 122/70 (87) 133/79 (97) Pulse Ox 99 99 100 99 O2 Delivery Nasal Cannula Nasal Cannula Nasal Cannula Room Air O2 Flow Rate 2.0 2.0 2.0 05/22/17 05/22/17 12:27 12:35 Temp 98.4 98.4 Pulse 96 Resp 18 16 B/P (MAP) 108/64 (79) Pulse Ox 96 O2 Delivery Room Air Room Air Intake and Output 05/22/17 05/22/17 05/23/17 15:00 23:00 07:00 Output Total 380 ml Balance -380 ml DILLON REESE MD May 22, 2017 13:10
[2017-05-22] MEDS: FAMOTIDINE 20 MG/2 ML VIAL IVP SCH (21:05)
[2017-05-23] MEDS: AMINO AC 3%/ELECTROLYTE/GLYCER 1,000 ML IV SCH ×3 (00:18→13:54)
[2017-05-23] MEDS: PIPERACILLIN/TAZOBACTAM 3.375 GM in IV NORMAL SALINE 50ML 50 ML IV SCH ×5 (00:19→23:57)
[2017-05-23 03:56] VITALS: BP 109/66
[2017-05-23 05:44] LABS: BASO % 0 % (0-3); EOS % 0 % (0-3); HEMATOCRIT 29.7 % (36.0-47.0); HEMOGLOBIN 9.9 g/dL (12.0-15.5); LYMPH # 1.5 x10^3/uL (1.0-4.8); LYMPH % 10 % (24-48); MEAN CORPUSCULAR HEMOGLOBIN 29 pg (25-35); MEAN CORPUSCULAR HGB CONC 34 g/dL (31-37); MEAN CORPUSCULAR VOLUME 86 fL (79-100); MONO % 6 % (0-9); NEUT % 83 % (31-73); PLATELET COUNT 392 x10^3/uL (140-400); RED BLOOD COUNT 3.44 x10^6/uL (3.50-5.40); RED CELL DISTRIBUTION WIDTH 13.9 % (11.5-14.5); WHITE BLOOD COUNT 14.2 x10^3/uL (4.0-11.0)
[2017-05-23 06:34] LABS: CALCIUM 8.3 mg/dL (8.5-10.1); CREATININE 0.4 mg/dL (0.6-1.0); POTASSIUM 3.7 mmol/L (3.5-5.1)
[2017-05-23] MEDS: traMADol 50 MG TABLET PO PRN ×2 (06:38→16:49)
[2017-05-23 07:00] VITALS: BP 97/61
[2017-05-23] MEDS: ENOXAPARIN 40 MG/0.4 ML SYRINGE. SQ SCH (09:41)
[2017-05-23 11:00] VITALS: BP 111/64
[2017-05-23 15:00] VITALS: BP 109/62
--- NOTE | 2017-05-23 15:05 | PDOC ---
SURGICAL PROGRESS NOTE Subjective Pt reports feeling better, on her way to the restroom Vital Signs Vital Signs Date Time Temp Pulse Resp B/P (MAP) Pulse Ox O2 Delivery O2 Flow Rate FiO2 05/23/17 11:00 97.5 92 16 111/64 (80) 93 Room Air 97.5 05/22/17 10:00 2.0 I&O Intake and Output 05/24/17 07:00 Intake Total 290 ml Balance 290 ml Intake Oral 240 ml IV Total 50 ml General: Alert, Oriented X3, Cooperative, No acute distress Labs Laboratory Tests Test 05/22/17 03:45 05/23/17 05:10 White Blood Count 14.8 x10^3/uL (4.0-11.0) 14.2 x10^3/uL (4.0-11.0) Red Blood Count 3.87 x10^6/uL (3.50-5.40) 3.44 x10^6/uL (3.50-5.40) Hemoglobin 11.2 g/dL (12.0-15.5) 9.9 g/dL (12.0-15.5) Hematocrit 33.8 % (36.0-47.0) 29.7 % (36.0-47.0) Mean Corpuscular Volume 87 fL (79-100) 86 fL (79-100) Mean Corpuscular Hemoglobin 29 pg (25-35) 29 pg (25-35) Mean Corpuscular Hemoglobin Concent 33 g/dL (31-37) 34 g/dL (31-37) Red Cell Distribution Width 14.0 % (11.5-14.5) 13.9 % (11.5-14.5) Platelet Count 379 x10^3/uL (140-400) 392 x10^3/uL (140-400) Neutrophils (%) (Auto) 91 % (31-73) 83 % (31-73) Lymphocytes (%) (Auto) 4 % (24-48) 10 % (24-48) Monocytes (%) (Auto) 5 % (0-9) 6 % (0-9) Eosinophils (%) (Auto) 0 % (0-3) 0 % (0-3) Basophils (%) (Auto) 0 % (0-3) 0 % (0-3) Neutrophils # (Auto) 13.5 x10^3uL (1.8-7.7) 11.8 x10^3uL (1.8-7.7) Lymphocytes # (Auto) 0.6 x10^3/uL (1.0-4.8) 1.5 x10^3/uL (1.0-4.8) Monocytes # (Auto) 0.7 x10^3/uL (0.0-1.1) 0.9 x10^3/uL (0.0-1.1) Eosinophils # (Auto) 0.0 x10^3/uL (0.0-0.7) 0.0 x10^3/uL (0.0-0.7) Basophils # (Auto) 0.0 x10^3/uL (0.0-0.2) 0.0 x10^3/uL (0.0-0.2) Segmented Neutrophils % 75 % (35-66) Band Neutrophils % 20 % (0-9) Lymphocytes % 1 % (24-48) Monocytes % 4 % (0-10) Platelet Estimate Adequate (ADEQUATE) Sodium Level 139 mmol/L (136-145) 142 mmol/L (136-145) Potassium Level 3.7 mmol/L (3.5-5.1) 3.7 mmol/L (3.5-5.1) Chloride Level 108 mmol/L (98-107) 109 mmol/L (98-107) Carbon Dioxide Level 20 mmol/L (21-32) 27 mmol/L (21-32) Anion Gap 11 (6-14) 6 (6-14) Blood Urea Nitrogen 8 mg/dL (7-20) 14 mg/dL (7-20) Creatinine 0.3 mg/dL (0.6-1.0) 0.4 mg/dL (0.6-1.0) Estimated GFR (Cockcroft-Gault) 299.7 215.0 Glucose Level 125 mg/dL (70-99) 120 mg/dL (70-99) Calcium Level 8.0 mg/dL (8.5-10.1) 8.3 mg/dL (8.5-10.1) Laboratory Tests Test 05/23/17 05:10 White Blood Count 14.2 x10^3/uL (4.0-11.0) Red Blood Count 3.44 x10^6/uL (3.50-5.40) Hemoglobin 9.9 g/dL (12.0-15.5) Hematocrit 29.7 % (36.0-47.0) Mean Corpuscular Volume 86 fL (79-100) Mean Corpuscular Hemoglobin 29 pg (25-35) Mean Corpuscular Hemoglobin Concent 34 g/dL (31-37) Red Cell Distribution Width 13.9 % (11.5-14.5) Platelet Count 392 x10^3/uL (140-400) Neutrophils (%) (Auto) 83 % (31-73) Lymphocytes (%) (Auto) 10 % (24-48) Monocytes (%) (Auto) 6 % (0-9) Eosinophils (%) (Auto) 0 % (0-3) Basophils (%) (Auto) 0 % (0-3) Neutrophils # (Auto) 11.8 x10^3uL (1.8-7.7) Lymphocytes # (Auto) 1.5 x10^3/uL (1.0-4.8) Monocytes # (Auto) 0.9 x10^3/uL (0.0-1.1) Eosinophils # (Auto) 0.0 x10^3/uL (0.0-0.7) Basophils # (Auto) 0.0 x10^3/uL (0.0-0.2) Sodium Level 142 mmol/L (136-145) Potassium Level 3.7 mmol/L (3.5-5.1) Chloride Level 109 mmol/L (98-107) Carbon Dioxide Level 27 mmol/L (21-32) Anion Gap 6 (6-14) Blood Urea Nitrogen 14 mg/dL (7-20) Creatinine 0.4 mg/dL (0.6-1.0) Estimated GFR (Cockcroft-Gault) 215.0 Glucose Level 120 mg/dL (70-99) Calcium Level 8.3 mg/dL (8.5-10.1) Problem List s/p xlap cont abx and supportive care Problems: TERRIE ESPOSITO MD May 23, 2017 15:05
--- NOTE | 2017-05-23 15:17 | PDOC ---
PROGRESS NOTES Chief Complaint Chief Complaint 1, abd pain with CT showing free intraperit air and mild free fluid s/p open laparotomy for diverticulitis with diverticular abcess, VELASQUEZ drain 2. NO reports of smoking, chronci NSAID or steroid use 3. Mild hypokalemia - replace IV obesity sepsis plan: fu with sx cont VELASQUEZ clear liquid as per sx add ppn dc protonix drip add gi ppx dvt ppx on zosyn, flagyl labs tmr History of Present Illness History of Present Illness ROS: no fever, chills, sob or chest pain on NGT granger, no N/V no abd pain has 1 Velasquez drain 345cc yesterday no flatus or BM Vitals Vitals Vital Signs Date Time Temp Pulse Resp B/P (MAP) Pulse Ox O2 Delivery O2 Flow Rate FiO2 05/23/17 11:00 97.5 92 16 111/64 (80) 93 Room Air 97.5 05/22/17 10:00 2.0 Physical Exam General: Alert, Oriented X3, Cooperative, No acute distress Heart: Regular rate, Normal S1, Normal S2, No murmurs Lungs: Clear Abdomen: Normal bowel sounds, Soft, No tenderness, Other (dressing c/d/i, VELASQUEZ serosang) Extremities: No clubbing, No cyanosis, No edema Skin: No rashes, No significant lesion Labs LABS Laboratory Tests Test 05/23/17 05:10 White Blood Count 14.2 x10^3/uL (4.0-11.0) Red Blood Count 3.44 x10^6/uL (3.50-5.40) Hemoglobin 9.9 g/dL (12.0-15.5) Hematocrit 29.7 % (36.0-47.0) Mean Corpuscular Volume 86 fL (79-100) Mean Corpuscular Hemoglobin 29 pg (25-35) Mean Corpuscular Hemoglobin Concent 34 g/dL (31-37) Red Cell Distribution Width 13.9 % (11.5-14.5) Platelet Count 392 x10^3/uL (140-400) Neutrophils (%) (Auto) 83 % (31-73) Lymphocytes (%) (Auto) 10 % (24-48) Monocytes (%) (Auto) 6 % (0-9) Eosinophils (%) (Auto) 0 % (0-3) Basophils (%) (Auto) 0 % (0-3) Neutrophils # (Auto) 11.8 x10^3uL (1.8-7.7) Lymphocytes # (Auto) 1.5 x10^3/uL (1.0-4.8) Monocytes # (Auto) 0.9 x10^3/uL (0.0-1.1) Eosinophils # (Auto) 0.0 x10^3/uL (0.0-0.7) Basophils # (Auto) 0.0 x10^3/uL (0.0-0.2) Sodium Level 142 mmol/L (136-145) Potassium Level 3.7 mmol/L (3.5-5.1) Chloride Level 109 mmol/L (98-107) Carbon Dioxide Level 27 mmol/L (21-32) Anion Gap 6 (6-14) Blood Urea Nitrogen 14 mg/dL (7-20) Creatinine 0.4 mg/dL (0.6-1.0) Estimated GFR (Cockcroft-Gault) 215.0 Glucose Level 120 mg/dL (70-99) Calcium Level 8.3 mg/dL (8.5-10.1) Comment Review of Relevant I have reviewed the following items enoc (where applicable) has been applied. Labs Laboratory Tests Test 05/22/17 03:45 05/23/17 05:10 White Blood Count 14.8 x10^3/uL (4.0-11.0) 14.2 x10^3/uL (4.0-11.0) Red Blood Count 3.87 x10^6/uL (3.50-5.40) 3.44 x10^6/uL (3.50-5.40) Hemoglobin 11.2 g/dL (12.0-15.5) 9.9 g/dL (12.0-15.5) Hematocrit 33.8 % (36.0-47.0) 29.7 % (36.0-47.0) Mean Corpuscular Volume 87 fL (79-100) 86 fL (79-100) Mean Corpuscular Hemoglobin 29 pg (25-35) 29 pg (25-35) Mean Corpuscular Hemoglobin Concent 33 g/dL (31-37) 34 g/dL (31-37) Red Cell Distribution Width 14.0 % (11.5-14.5) 13.9 % (11.5-14.5) Platelet Count 379 x10^3/uL (140-400) 392 x10^3/uL (140-400) Neutrophils (%) (Auto) 91 % (31-73) 83 % (31-73) Lymphocytes (%) (Auto) 4 % (24-48) 10 % (24-48) Monocytes (%) (Auto) 5 % (0-9) 6 % (0-9) Eosinophils (%) (Auto) 0 % (0-3) 0 % (0-3) Basophils (%) (Auto) 0 % (0-3) 0 % (0-3) Neutrophils # (Auto) 13.5 x10^3uL (1.8-7.7) 11.8 x10^3uL (1.8-7.7) Lymphocytes # (Auto) 0.6 x10^3/uL (1.0-4.8) 1.5 x10^3/uL (1.0-4.8) Monocytes # (Auto) 0.7 x10^3/uL (0.0-1.1) 0.9 x10^3/uL (0.0-1.1) Eosinophils # (Auto) 0.0 x10^3/uL (0.0-0.7) 0.0 x10^3/uL (0.0-0.7) Basophils # (Auto) 0.0 x10^3/uL (0.0-0.2) 0.0 x10^3/uL (0.0-0.2) Segmented Neutrophils % 75 % (35-66) Band Neutrophils % 20 % (0-9) Lymphocytes % 1 % (24-48) Monocytes % 4 % (0-10) Platelet Estimate Adequate (ADEQUATE) Sodium Level 139 mmol/L (136-145) 142 mmol/L (136-145) Potassium Level 3.7 mmol/L (3.5-5.1) 3.7 mmol/L (3.5-5.1) Chloride Level 108 mmol/L (98-107) 109 mmol/L (98-107) Carbon Dioxide Level 20 mmol/L (21-32) 27 mmol/L (21-32) Anion Gap 11 (6-14) 6 (6-14) Blood Urea Nitrogen 8 mg/dL (7-20) 14 mg/dL (7-20) Creatinine 0.3 mg/dL (0.6-1.0) 0.4 mg/dL (0.6-1.0) Estimated GFR (Cockcroft-Gault) 299.7 215.0 Glucose Level 125 mg/dL (70-99) 120 mg/dL (70-99) Calcium Level 8.0 mg/dL (8.5-10.1) 8.3 mg/dL (8.5-10.1) Laboratory Tests Test 05/23/17 05:10 White Blood Count 14.2 x10^3/uL (4.0-11.0) Red Blood Count 3.44 x10^6/uL (3.50-5.40) Hemoglobin 9.9 g/dL (12.0-15.5) Hematocrit 29.7 % (36.0-47.0) Mean Corpuscular Volume 86 fL (79-100) Mean Corpuscular Hemoglobin 29 pg (25-35) Mean Corpuscular Hemoglobin Concent 34 g/dL (31-37) Red Cell Distribution Width 13.9 % (11.5-14.5) Platelet Count 392 x10^3/uL (140-400) Neutrophils (%) (Auto) 83 % (31-73) Lymphocytes (%) (Auto) 10 % (24-48) Monocytes (%) (Auto) 6 % (0-9) Eosinophils (%) (Auto) 0 % (0-3) Basophils (%) (Auto) 0 % (0-3) Neutrophils # (Auto) 11.8 x10^3uL (1.8-7.7) Lymphocytes # (Auto) 1.5 x10^3/uL (1.0-4.8) Monocytes # (Auto) 0.9 x10^3/uL (0.0-1.1) Eosinophils # (Auto) 0.0 x10^3/uL (0.0-0.7) Basophils # (Auto) 0.0 x10^3/uL (0.0-0.2) Sodium Level 142 mmol/L (136-145) Potassium Level 3.7 mmol/L (3.5-5.1) Chloride Level 109 mmol/L (98-107) Carbon Dioxide Level 27 mmol/L (21-32) Anion Gap 6 (6-14) Blood Urea Nitrogen 14 mg/dL (7-20) Creatinine 0.4 mg/dL (0.6-1.0) Estimated GFR (Cockcroft-Gault) 215.0 Glucose Level 120 mg/dL (70-99) Calcium Level 8.3 mg/dL (8.5-10.1) Microbiology 05/20/17 Urine Culture - Final, Complete 05/20/17 Urine Culture Result 1 (ANDREINA) - Final, Complete Medications Current Medications Sodium Chloride 1,000 ml @ 1,000 mls/hr 1X ONCE IV Last administered on 20:40; Start 05/20/17 at 20:30; Stop 05/20/17 at 21:29; Status DC Ondansetron HCl (Zofran) 4 mg 1X ONCE IV Last administered on 05/20/17 20:47 ; Start 05/20/17 at 20:45; Stop 05/20/17 at 20:46; Status DC Fentanyl Citrate (Fentanyl 2ml Vial) 50 mcg 1X ONCE IV Last administered on 20:47; Start 05/20/17 at 20:45; Stop 05/20/17 at 20:46; Status DC Iohexol (Omnipaque 300 Mg/ml) 75 ml 1X ONCE IV Last administered on 05/20/17 21:21; Start 05/20/17 at 21:00; Stop 05/20/17 at 21:01; Status DC Info (Do NOT chart on this entry -- for MONITORING) 1 each PRN DAILY PRN MC SEE COMMENTS; Start 05/20/17 at 21:00; Stop 05/22/17 at 20:59; Status DC Piperacillin Sod/ Tazobactam Sod 3.375 gm/Sodium Chloride 50 ml @ 100 mls/hr 1X ONCE IV Last administered on 05/20/17 22:42; Start 05/20/17 at 22:30; Stop 05/20/17 at 22:59; Status DC Ondansetron HCl (Zofran) 4 mg PRN Q8HRS PRN IV NAUSEA/VOMITING; Start 05/20/17 at 22:30; Stop 05/21/17 at 22:29; Status DC Fentanyl Citrate (Fentanyl 2ml Vial) 50 mcg PRN Q1HR PRN IV PAIN Last administered on 05/21/17 22:16; Start 05/20/17 at 22:30; Stop 05/21/17 at 22:29 ; Status DC Sodium Chloride 1,000 ml @ 125 mls/hr Q8H IV Last administered on 05/21/17 12 :56; Start 05/20/17 at 22:30; Stop 05/21/17 at 22:29; Status DC Piperacillin Sod/ Tazobactam Sod (Zosyn Per Pharmacy) 1 each PRN DAILY PRN MC SEE COMMENTS; Start 05/20/17 at 22:30 Pantoprazole Sodium (Protonix Vial) 40 mg 1X ONCE IVP Last administered on 22:54; Start 05/20/17 at 22:45; Stop 05/20/17 at 22:46; Status DC Pantoprazole Sodium 80 mg/ Sodium Chloride 100 ml @ 10 mls/hr 1X ONCE IV Last administered on 05/20/17 22:54; Start 05/20/17 at 22:45; Stop 05/21/17 at 08:44; Status DC Sodium Chloride 1,000 ml @ 1,000 mls/hr 1X ONCE IV Last administered on 22:54; Start 05/20/17 at 22:30; Stop 05/20/17 at 23:29; Status DC Piperacillin Sod/ Tazobactam Sod 3.375 gm/Sodium Chloride 50 ml @ 100 mls/hr Q6HRS IV Last administered on 05/23/17 11:59; Start 05/21/17 at 06:00 Info (Do NOT chart on this placeholder) 1 each 1X ONCE MC ; Start 05/21/17 at 01:30; Stop 05/21/17 at 01:31; Status UNV Influenza Virus Vaccine Quadrival (Fluarix Quad [id number] Syringe) 0.5 ml ONCE ONCE VAX IM Last administered on 05/22/17 11:05; Start 05/21/17 at 09:00; Stop 05/21/17 at 09:01; Status DC Pantoprazole Sodium 80 mg/ Sodium Chloride 100 ml @ 10 mls/hr Q10H IV Last administered on 05/22/17 04:17; Start 05/21/17 at 06:45; Stop 05/22/17 at 08:41 ; Status DC Ondansetron HCl (Zofran) 4 mg PRN Q6HRS PRN IV NAUSEA/VOMITING; Start 05/21/17 at 07:30; Stop 05/21/17 at 19:00; Status DC Fentanyl Citrate (Fentanyl 2ml Vial) 25 mcg PRN Q5MIN PRN IV MILD PAIN; Start 05/21/17 at 07:30; Stop 05/21/17 at 19:00; Status DC Fentanyl Citrate (Fentanyl 2ml Vial) 50 mcg PRN Q5MIN PRN IV MODERATE PAIN Last administered on 05/21/17 11:35; Start 05/21/17 at 07:30; Stop 05/21/17 at 19:00; Status DC Morphine Sulfate 1 mg PRN Q10MIN PRN IV SEVERE PAIN; Start 05/21/17 at 07:30; Stop 05/21/17 at 19:00; Status DC Ringer's Solution 1,000 ml @ 30 mls/hr Q24H IV Last administered on 05/21/17 07:19; Start 05/21/17 at 07:19; Stop 05/21/17 at 19:18; Status DC Lidocaine HCl (Xylocaine-Mpf 1% Vial) 2 ml 1X PRN PRN ID IV START; Start at 07:30; Stop 05/21/17 at 19:00; Status DC Hydromorphone HCl (Dilaudid) 0.5 mg PRN Q10MIN PRN IV SEV PAIN, Second choice Last administered on 05/21/17 12:12; Start 05/21/17 at 07:30; Stop 05/21/17 at 19:00; Status DC Prochlorperazine Edisylate (Compazine) 5 mg PACU PRN PRN IV NAUSEA, MRX1; Start 05/21/17 at 07:30; Stop 05/21/17 at 19:00; Status DC Bupivacaine HCl/ Epinephrine Bitart (Sensorcaine-Epi 0.25%-1:[id number] Mpf) 30 ml STK-MED ONCE .ROUTE Last administered on 05/21/17 10:09; Start 05/21/17 at 06: 48; Stop 05/21/17 at 07:48; Status DC Propofol 20 ml @ As Directed STK-MED ONCE IV ; Start 05/21/17 at 09:00; Stop at 09:01; Status DC Lidocaine HCl (Lidocaine Pf 2% Vial) 5 ml STK-MED ONCE .ROUTE ; Start 05/21/17 at 09:00; Stop 05/21/17 at 09:01; Status DC Rocuronium Perry (Zemuron) 100 mg STK-MED ONCE .ROUTE ; Start 05/21/17 at 09: 00; Stop 05/21/17 at 09:01; Status DC Succinylcholine Chloride (Anectine) 200 mg STK-MED ONCE .ROUTE ; Start 05/21/17 at 09:00; Stop 05/21/17 at 09:01; Status DC Midazolam HCl (Versed) 2 mg STK-MED ONCE .ROUTE ; Start 05/21/17 at 09:00; Stop 05/21/17 at 09:01; Status DC Fentanyl Citrate (Fentanyl 2ml Vial) 100 mcg STK-MED ONCE .ROUTE ; Start at 09:00; Stop 05/21/17 at 09:01; Status DC Potassium Chloride 100 ml @ 100 mls/hr Q1H IV Last administered on 05/21/17 16:36; Start 05/21/17 at 10:00; Stop 05/21/17 at 13:59; Status DC Morphine Sulfate 2 mg PRN Q2HR PRN IV PAIN Last administered on 05/22/17 04:17 ; Start 05/21/17 at 09:30 Neostigmine Methylsulfate 5 mg STK-MED ONCE .ROUTE ; Start 05/21/17 at 09:52; Stop 05/21/17 at 09:53; Status DC Glycopyrrolate (Robinul) 1 mg STK-MED ONCE .ROUTE ; Start 05/21/17 at 09:52; Stop 05/21/17 at 09:53; Status DC Phenylephrine HCl 1 mg STK-MED ONCE IV ; Start 05/21/17 at 09:52; Stop 05/21/17 at 09:53; Status DC Fentanyl Citrate (Fentanyl 2ml Vial) 100 mcg STK-MED ONCE .ROUTE ; Start at 10:03; Stop 05/21/17 at 10:04; Status DC Fentanyl Citrate (Fentanyl 2ml Vial) 100 mcg STK-MED ONCE .ROUTE ; Start at 10:37; Stop 05/21/17 at 10:38; Status DC Sevoflurane (Ultane) 60 ml STK-MED ONCE IH ; Start 05/21/17 at 10:39; Stop 05/21 at 10:40; Status DC Ringer's Solution 1,000 ml @ 150 mls/hr Q6H40M IV ; Start 05/21/17 at 10:45; Stop 05/21/17 at 15:35; Status DC Metronidazole 100 ml @ 100 mls/hr Q8HRS IV Last administered on 05/23/17 13: 57; Start 05/21/17 at 14:00 Amino Acids/ Glycerin/ Electrolytes 1,000 ml @ 80 mls/hr [id number] IV Last administered on 05/23/17 13:54; Start 05/22/17 at 08:45 Acetaminophen (Tylenol) 650 mg PRN Q6HRS PRN PO FEVER; Start 05/22/17 at 08:45 Ondansetron HCl (Zofran) 4 mg PRN Q6HRS PRN IV NAUSEA/VOMITING; Start 05/22/17 at 08:45 Morphine Sulfate 2 mg PRN Q2HR PRN IV PAIN; Start 05/22/17 at 08:45; Status Cancel Tramadol HCl (Ultram) 50 mg PRN Q6HRS PRN PO PAIN Last administered on 06:38; Start 05/22/17 at 08:45 Hydralazine HCl (Apresoline) 10 mg PRN Q4HRS PRN IVP ELEVATED BP, SEE COMMENTS ; Start 05/22/17 at 08:45 Docusate Sodium (Colace) 100 mg PRN DAILY PRN PO CONSTIPATION; Start 05/22/17 at 08:45 Famotidine (Pepcid) 20 mg QHS IVP Last administered on 05/22/17 21:05; Start 05/22/17 at 21:00 Enoxaparin Sodium (Lovenox 40mg Syringe) 40 mg DAILY SQ Last administered on 09:41; Start 05/22/17 at 09:00 Active Scripts Active Reported No Known Medications Prior To Admisstion (Info) Each 1 Each Vitals/I & O Vital Sign - Last 24 Hours 05/22/17 05/22/17 05/22/17 05/22/17 19:48 20:00 21:05 23:59 Temp 98.7 98.2 98.7 98.2 Pulse 97 85 Resp 18 18 B/P (MAP) 115/75 (88) 107/74 (85) Pulse Ox 94 95 O2 Delivery Room Air Room Air Room Air Room Air 05/23/17 05/23/17 05/23/17 05/23/17 03:56 06:38 07:00 08:15 Temp 98.1 97.7 98.1 97.7 Pulse 93 84 Resp 18 18 B/P (MAP) 109/66 (80) 97/61 (73) Pulse Ox 91 92 O2 Delivery Room Air Room Air Room Air Room Air 05/23/17 05/23/17 08:20 11:00 Temp 97.5 97.5 Pulse 92 Resp 16 16 B/P (MAP) 111/64 (80) Pulse Ox 93 O2 Delivery Room Air Room Air Intake and Output 05/23/17 05/23/17 05/24/17 15:00 23:00 07:00 Intake Total 530 ml Balance 530 ml DILLON REESE MD May 23, 2017 15:17
[2017-05-23 19:08] VITALS: BP 112/69
[2017-05-23] MEDS: FAMOTIDINE 20 MG/2 ML VIAL IVP SCH (21:16)
[2017-05-23 23:00] VITALS: BP 111/72
[2017-05-24 04:07] LABS: BASO # 0.1 x10^3/uL (0.0-0.2); BASO % 1 % (0-3); EOS % 1 % (0-3); HEMATOCRIT 35.8 % (36.0-47.0); HEMOGLOBIN 11.9 g/dL (12.0-15.5); LYMPH % 15 % (24-48); MEAN CORPUSCULAR HEMOGLOBIN 29 pg (25-35); MEAN CORPUSCULAR HGB CONC 33 g/dL (31-37); MEAN CORPUSCULAR VOLUME 86 fL (79-100); MONO % 8 % (0-9); NEUT % 76 % (31-73); PLATELET COUNT 450 x10^3/uL (140-400); RED BLOOD COUNT 4.16 x10^6/uL (3.50-5.40); WHITE BLOOD COUNT 13.6 x10^3/uL (4.0-11.0)
[2017-05-24 04:51] LABS: CALCIUM 7.7 mg/dL (8.5-10.1); CREATININE 0.5 mg/dL (0.6-1.0); GFR 166.2; POTASSIUM 3.2 mmol/L (3.5-5.1)
[2017-05-24] MEDS: PIPERACILLIN/TAZOBACTAM 3.375 GM in IV NORMAL SALINE 50ML 50 ML IV SCH ×3 (06:06→18:38)
[2017-05-24] MEDS: AMINO AC 3%/ELECTROLYTE/GLYCER 1,000 ML IV SCH (06:06)
[2017-05-24 07:00] VITALS: BP 116/77
[2017-05-24] MEDS: traMADol 50 MG TABLET PO PRN ×2 (09:08→21:16)
[2017-05-24] MEDS: ENOXAPARIN 40 MG/0.4 ML SYRINGE. SQ SCH (09:09)
[2017-05-24 11:00] VITALS: BP 109/72
--- NOTE | 2017-05-24 11:20 | PDOC ---
SURGICAL PROGRESS NOTE Subjective Taking clears, small amount of flatus no n/v some bloating Vital Signs Vital Signs Date Time Temp Pulse Resp B/P (MAP) Pulse Ox O2 Delivery O2 Flow Rate FiO2 05/24/17 10:08 16 Room Air 05/24/17 07:00 98.1 94 116/77 (90) 97 98.1 General: Alert, Oriented X3, Cooperative, No acute distress Abdomen: Soft, Other (mild distention, JANNET minimal drainage, incision c/d/i, no erythema ) Labs Laboratory Tests Test 05/23/17 05:10 05/24/17 03:40 White Blood Count 14.2 x10^3/uL (4.0-11.0) 13.6 x10^3/uL (4.0-11.0) Red Blood Count 3.44 x10^6/uL (3.50-5.40) 4.16 x10^6/uL (3.50-5.40) Hemoglobin 9.9 g/dL (12.0-15.5) 11.9 g/dL (12.0-15.5) Hematocrit 29.7 % (36.0-47.0) 35.8 % (36.0-47.0) Mean Corpuscular Volume 86 fL (79-100) 86 fL (79-100) Mean Corpuscular Hemoglobin 29 pg (25-35) 29 pg (25-35) Mean Corpuscular Hemoglobin Concent 34 g/dL (31-37) 33 g/dL (31-37) Red Cell Distribution Width 13.9 % (11.5-14.5) 14.0 % (11.5-14.5) Platelet Count 392 x10^3/uL (140-400) 450 x10^3/uL (140-400) Neutrophils (%) (Auto) 83 % (31-73) 76 % (31-73) Lymphocytes (%) (Auto) 10 % (24-48) 15 % (24-48) Monocytes (%) (Auto) 6 % (0-9) 8 % (0-9) Eosinophils (%) (Auto) 0 % (0-3) 1 % (0-3) Basophils (%) (Auto) 0 % (0-3) 1 % (0-3) Neutrophils # (Auto) 11.8 x10^3uL (1.8-7.7) 10.3 x10^3uL (1.8-7.7) Lymphocytes # (Auto) 1.5 x10^3/uL (1.0-4.8) 2.0 x10^3/uL (1.0-4.8) Monocytes # (Auto) 0.9 x10^3/uL (0.0-1.1) 1.0 x10^3/uL (0.0-1.1) Eosinophils # (Auto) 0.0 x10^3/uL (0.0-0.7) 0.1 x10^3/uL (0.0-0.7) Basophils # (Auto) 0.0 x10^3/uL (0.0-0.2) 0.1 x10^3/uL (0.0-0.2) Sodium Level 142 mmol/L (136-145) 138 mmol/L (136-145) Potassium Level 3.7 mmol/L (3.5-5.1) 3.2 mmol/L (3.5-5.1) Chloride Level 109 mmol/L (98-107) 103 mmol/L (98-107) Carbon Dioxide Level 27 mmol/L (21-32) 29 mmol/L (21-32) Anion Gap 6 (6-14) 6 (6-14) Blood Urea Nitrogen 14 mg/dL (7-20) 9 mg/dL (7-20) Creatinine 0.4 mg/dL (0.6-1.0) 0.5 mg/dL (0.6-1.0) Estimated GFR (Cockcroft-Gault) 215.0 166.2 Glucose Level 120 mg/dL (70-99) 118 mg/dL (70-99) Calcium Level 8.3 mg/dL (8.5-10.1) 7.7 mg/dL (8.5-10.1) Laboratory Tests Test 05/24/17 03:40 White Blood Count 13.6 x10^3/uL (4.0-11.0) Red Blood Count 4.16 x10^6/uL (3.50-5.40) Hemoglobin 11.9 g/dL (12.0-15.5) Hematocrit 35.8 % (36.0-47.0) Mean Corpuscular Volume 86 fL (79-100) Mean Corpuscular Hemoglobin 29 pg (25-35) Mean Corpuscular Hemoglobin Concent 33 g/dL (31-37) Red Cell Distribution Width 14.0 % (11.5-14.5) Platelet Count 450 x10^3/uL (140-400) Neutrophils (%) (Auto) 76 % (31-73) Lymphocytes (%) (Auto) 15 % (24-48) Monocytes (%) (Auto) 8 % (0-9) Eosinophils (%) (Auto) 1 % (0-3) Basophils (%) (Auto) 1 % (0-3) Neutrophils # (Auto) 10.3 x10^3uL (1.8-7.7) Lymphocytes # (Auto) 2.0 x10^3/uL (1.0-4.8) Monocytes # (Auto) 1.0 x10^3/uL (0.0-1.1) Eosinophils # (Auto) 0.1 x10^3/uL (0.0-0.7) Basophils # (Auto) 0.1 x10^3/uL (0.0-0.2) Sodium Level 138 mmol/L (136-145) Potassium Level 3.2 mmol/L (3.5-5.1) Chloride Level 103 mmol/L (98-107) Carbon Dioxide Level 29 mmol/L (21-32) Anion Gap 6 (6-14) Blood Urea Nitrogen 9 mg/dL (7-20) Creatinine 0.5 mg/dL (0.6-1.0) Estimated GFR (Cockcroft-Gault) 166.2 Glucose Level 118 mg/dL (70-99) Calcium Level 7.7 mg/dL (8.5-10.1) Problem List s/p xlap continue abx clears until improved bowel function Problems: LILA HOLLEY MULE PACKER May 24, 2017 11:20
--- NOTE | 2017-05-24 11:24 | PDOC ---
PROGRESS NOTES Chief Complaint Chief Complaint 1, abd pain with CT showing free intraperit air and mild free fluid s/p open laparotomy for diverticulitis with diverticular abcess, JANNET drain 2. NO reports of smoking, chronci NSAID or steroid use 3. Mild hypokalemia - replace IV 4. obesity 5. sepsis 6. hypocalcemia History of Present Illness History of Present Illness surg following, on zosyn and flagyl cont JANNET clear liquid as per sx add ppn dc protonix drip add gi ppx dvt ppx labs tmr Vitals Vitals Vital Signs Date Time Temp Pulse Resp B/P (MAP) Pulse Ox O2 Delivery O2 Flow Rate FiO2 05/24/17 10:08 16 Room Air 05/24/17 07:00 98.1 94 116/77 (90) 97 98.1 Physical Exam General: Alert, Oriented X3, Cooperative, No acute distress Heart: Regular rate, Normal S1, Normal S2, No murmurs Lungs: Clear Abdomen: Soft, Other (mild distention, JANNET minimal drainage, incision c/d/i, no erythema ) Extremities: No clubbing, No cyanosis, No edema Skin: No rashes, No significant lesion Labs LABS Laboratory Tests Test 05/24/17 03:40 White Blood Count 13.6 x10^3/uL (4.0-11.0) Red Blood Count 4.16 x10^6/uL (3.50-5.40) Hemoglobin 11.9 g/dL (12.0-15.5) Hematocrit 35.8 % (36.0-47.0) Mean Corpuscular Volume 86 fL (79-100) Mean Corpuscular Hemoglobin 29 pg (25-35) Mean Corpuscular Hemoglobin Concent 33 g/dL (31-37) Red Cell Distribution Width 14.0 % (11.5-14.5) Platelet Count 450 x10^3/uL (140-400) Neutrophils (%) (Auto) 76 % (31-73) Lymphocytes (%) (Auto) 15 % (24-48) Monocytes (%) (Auto) 8 % (0-9) Eosinophils (%) (Auto) 1 % (0-3) Basophils (%) (Auto) 1 % (0-3) Neutrophils # (Auto) 10.3 x10^3uL (1.8-7.7) Lymphocytes # (Auto) 2.0 x10^3/uL (1.0-4.8) Monocytes # (Auto) 1.0 x10^3/uL (0.0-1.1) Eosinophils # (Auto) 0.1 x10^3/uL (0.0-0.7) Basophils # (Auto) 0.1 x10^3/uL (0.0-0.2) Sodium Level 138 mmol/L (136-145) Potassium Level 3.2 mmol/L (3.5-5.1) Chloride Level 103 mmol/L (98-107) Carbon Dioxide Level 29 mmol/L (21-32) Anion Gap 6 (6-14) Blood Urea Nitrogen 9 mg/dL (7-20) Creatinine 0.5 mg/dL (0.6-1.0) Estimated GFR (Cockcroft-Gault) 166.2 Glucose Level 118 mg/dL (70-99) Calcium Level 7.7 mg/dL (8.5-10.1) Review of Systems Review of Systems ROS: no fever, chills, sob or chest pain abd pain 5/10, better, can ambulate has not stooled, urinating normally Comment Review of Relevant I have reviewed the following items enoc (where applicable) has been applied. Labs Laboratory Tests Test 05/23/17 05:10 05/24/17 03:40 White Blood Count 14.2 x10^3/uL (4.0-11.0) 13.6 x10^3/uL (4.0-11.0) Red Blood Count 3.44 x10^6/uL (3.50-5.40) 4.16 x10^6/uL (3.50-5.40) Hemoglobin 9.9 g/dL (12.0-15.5) 11.9 g/dL (12.0-15.5) Hematocrit 29.7 % (36.0-47.0) 35.8 % (36.0-47.0) Mean Corpuscular Volume 86 fL (79-100) 86 fL (79-100) Mean Corpuscular Hemoglobin 29 pg (25-35) 29 pg (25-35) Mean Corpuscular Hemoglobin Concent 34 g/dL (31-37) 33 g/dL (31-37) Red Cell Distribution Width 13.9 % (11.5-14.5) 14.0 % (11.5-14.5) Platelet Count 392 x10^3/uL (140-400) 450 x10^3/uL (140-400) Neutrophils (%) (Auto) 83 % (31-73) 76 % (31-73) Lymphocytes (%) (Auto) 10 % (24-48) 15 % (24-48) Monocytes (%) (Auto) 6 % (0-9) 8 % (0-9) Eosinophils (%) (Auto) 0 % (0-3) 1 % (0-3) Basophils (%) (Auto) 0 % (0-3) 1 % (0-3) Neutrophils # (Auto) 11.8 x10^3uL (1.8-7.7) 10.3 x10^3uL (1.8-7.7) Lymphocytes # (Auto) 1.5 x10^3/uL (1.0-4.8) 2.0 x10^3/uL (1.0-4.8) Monocytes # (Auto) 0.9 x10^3/uL (0.0-1.1) 1.0 x10^3/uL (0.0-1.1) Eosinophils # (Auto) 0.0 x10^3/uL (0.0-0.7) 0.1 x10^3/uL (0.0-0.7) Basophils # (Auto) 0.0 x10^3/uL (0.0-0.2) 0.1 x10^3/uL (0.0-0.2) Sodium Level 142 mmol/L (136-145) 138 mmol/L (136-145) Potassium Level 3.7 mmol/L (3.5-5.1) 3.2 mmol/L (3.5-5.1) Chloride Level 109 mmol/L (98-107) 103 mmol/L (98-107) Carbon Dioxide Level 27 mmol/L (21-32) 29 mmol/L (21-32) Anion Gap 6 (6-14) 6 (6-14) Blood Urea Nitrogen 14 mg/dL (7-20) 9 mg/dL (7-20) Creatinine 0.4 mg/dL (0.6-1.0) 0.5 mg/dL (0.6-1.0) Estimated GFR (Cockcroft-Gault) 215.0 166.2 Glucose Level 120 mg/dL (70-99) 118 mg/dL (70-99) Calcium Level 8.3 mg/dL (8.5-10.1) 7.7 mg/dL (8.5-10.1) Laboratory Tests Test 05/24/17 03:40 White Blood Count 13.6 x10^3/uL (4.0-11.0) Red Blood Count 4.16 x10^6/uL (3.50-5.40) Hemoglobin 11.9 g/dL (12.0-15.5) Hematocrit 35.8 % (36.0-47.0) Mean Corpuscular Volume 86 fL (79-100) Mean Corpuscular Hemoglobin 29 pg (25-35) Mean Corpuscular Hemoglobin Concent 33 g/dL (31-37) Red Cell Distribution Width 14.0 % (11.5-14.5) Platelet Count 450 x10^3/uL (140-400) Neutrophils (%) (Auto) 76 % (31-73) Lymphocytes (%) (Auto) 15 % (24-48) Monocytes (%) (Auto) 8 % (0-9) Eosinophils (%) (Auto) 1 % (0-3) Basophils (%) (Auto) 1 % (0-3) Neutrophils # (Auto) 10.3 x10^3uL (1.8-7.7) Lymphocytes # (Auto) 2.0 x10^3/uL (1.0-4.8) Monocytes # (Auto) 1.0 x10^3/uL (0.0-1.1) Eosinophils # (Auto) 0.1 x10^3/uL (0.0-0.7) Basophils # (Auto) 0.1 x10^3/uL (0.0-0.2) Sodium Level 138 mmol/L (136-145) Potassium Level 3.2 mmol/L (3.5-5.1) Chloride Level 103 mmol/L (98-107) Carbon Dioxide Level 29 mmol/L (21-32) Anion Gap 6 (6-14) Blood Urea Nitrogen 9 mg/dL (7-20) Creatinine 0.5 mg/dL (0.6-1.0) Estimated GFR (Cockcroft-Gault) 166.2 Glucose Level 118 mg/dL (70-99) Calcium Level 7.7 mg/dL (8.5-10.1) Microbiology 05/20/17 Urine Culture - Final, Complete 05/20/17 Urine Culture Result 1 (ANDREINA) - Final, Complete Medications Current Medications Sodium Chloride 1,000 ml @ 1,000 mls/hr 1X ONCE IV Last administered on 20:40; Start 05/20/17 at 20:30; Stop 05/20/17 at 21:29; Status DC Ondansetron HCl (Zofran) 4 mg 1X ONCE IV Last administered on 05/20/17 20:47 ; Start 05/20/17 at 20:45; Stop 05/20/17 at 20:46; Status DC Fentanyl Citrate (Fentanyl 2ml Vial) 50 mcg 1X ONCE IV Last administered on 20:47; Start 05/20/17 at 20:45; Stop 05/20/17 at 20:46; Status DC Iohexol (Omnipaque 300 Mg/ml) 75 ml 1X ONCE IV Last administered on 05/20/17 21:21; Start 05/20/17 at 21:00; Stop 05/20/17 at 21:01; Status DC Info (Do NOT chart on this entry -- for MONITORING) 1 each PRN DAILY PRN MC SEE COMMENTS; Start 05/20/17 at 21:00; Stop 05/22/17 at 20:59; Status DC Piperacillin Sod/ Tazobactam Sod 3.375 gm/Sodium Chloride 50 ml @ 100 mls/hr 1X ONCE IV Last administered on 05/20/17 22:42; Start 05/20/17 at 22:30; Stop 05/20/17 at 22:59; Status DC Ondansetron HCl (Zofran) 4 mg PRN Q8HRS PRN IV NAUSEA/VOMITING; Start 05/20/17 at 22:30; Stop 05/21/17 at 22:29; Status DC Fentanyl Citrate (Fentanyl 2ml Vial) 50 mcg PRN Q1HR PRN IV PAIN Last administered on 05/21/17 22:16; Start 05/20/17 at 22:30; Stop 05/21/17 at 22:29 ; Status DC Sodium Chloride 1,000 ml @ 125 mls/hr Q8H IV Last administered on 05/21/17 12 :56; Start 05/20/17 at 22:30; Stop 05/21/17 at 22:29; Status DC Piperacillin Sod/ Tazobactam Sod (Zosyn Per Pharmacy) 1 each PRN DAILY PRN MC SEE COMMENTS; Start 05/20/17 at 22:30 Pantoprazole Sodium (Protonix Vial) 40 mg 1X ONCE IVP Last administered on 22:54; Start 05/20/17 at 22:45; Stop 05/20/17 at 22:46; Status DC Pantoprazole Sodium 80 mg/ Sodium Chloride 100 ml @ 10 mls/hr 1X ONCE IV Last administered on 05/20/17 22:54; Start 05/20/17 at 22:45; Stop 05/21/17 at 08:44; Status DC Sodium Chloride 1,000 ml @ 1,000 mls/hr 1X ONCE IV Last administered on 22:54; Start 05/20/17 at 22:30; Stop 05/20/17 at 23:29; Status DC Piperacillin Sod/ Tazobactam Sod 3.375 gm/Sodium Chloride 50 ml @ 100 mls/hr Q6HRS IV Last administered on 05/24/17 06:06; Start 05/21/17 at 06:00 Info (Do NOT chart on this placeholder) 1 each 1X ONCE MC ; Start 05/21/17 at 01:30; Stop 05/21/17 at 01:31; Status UNV Influenza Virus Vaccine Quadrival (Fluarix Quad [id number] Syringe) 0.5 ml ONCE ONCE VAX IM Last administered on 05/22/17 11:05; Start 05/21/17 at 09:00; Stop 05/21/17 at 09:01; Status DC Pantoprazole Sodium 80 mg/ Sodium Chloride 100 ml @ 10 mls/hr Q10H IV Last administered on 05/22/17 04:17; Start 05/21/17 at 06:45; Stop 05/22/17 at 08:41 ; Status DC Ondansetron HCl (Zofran) 4 mg PRN Q6HRS PRN IV NAUSEA/VOMITING; Start 05/21/17 at 07:30; Stop 05/21/17 at 19:00; Status DC Fentanyl Citrate (Fentanyl 2ml Vial) 25 mcg PRN Q5MIN PRN IV MILD PAIN; Start 05/21/17 at 07:30; Stop 05/21/17 at 19:00; Status DC Fentanyl Citrate (Fentanyl 2ml Vial) 50 mcg PRN Q5MIN PRN IV MODERATE PAIN Last administered on 05/21/17 11:35; Start 05/21/17 at 07:30; Stop 05/21/17 at 19:00; Status DC Morphine Sulfate 1 mg PRN Q10MIN PRN IV SEVERE PAIN; Start 05/21/17 at 07:30; Stop 05/21/17 at 19:00; Status DC Ringer's Solution 1,000 ml @ 30 mls/hr Q24H IV Last administered on 05/21/17 07:19; Start 05/21/17 at 07:19; Stop 05/21/17 at 19:18; Status DC Lidocaine HCl (Xylocaine-Mpf 1% Vial) 2 ml 1X PRN PRN ID IV START; Start at 07:30; Stop 05/21/17 at 19:00; Status DC Hydromorphone HCl (Dilaudid) 0.5 mg PRN Q10MIN PRN IV SEV PAIN, Second choice Last administered on 05/21/17 12:12; Start 05/21/17 at 07:30; Stop 05/21/17 at 19:00; Status DC Prochlorperazine Edisylate (Compazine) 5 mg PACU PRN PRN IV NAUSEA, MRX1; Start 05/21/17 at 07:30; Stop 05/21/17 at 19:00; Status DC Bupivacaine HCl/ Epinephrine Bitart (Sensorcaine-Epi 0.25%-1:863104 Mpf) 30 ml STK-MED ONCE .ROUTE Last administered on 05/21/17 10:09; Start 05/21/17 at 06: 48; Stop 05/21/17 at 07:48; Status DC Propofol 20 ml @ As Directed STK-MED ONCE IV ; Start 05/21/17 at 09:00; Stop at 09:01; Status DC Lidocaine HCl (Lidocaine Pf 2% Vial) 5 ml STK-MED ONCE .ROUTE ; Start 05/21/17 at 09:00; Stop 05/21/17 at 09:01; Status DC Rocuronium [place] (Zemuron) 100 mg STK-MED ONCE .ROUTE ; Start 05/21/17 at 09: 00; Stop 05/21/17 at 09:01; Status DC Succinylcholine Chloride (Anectine) 200 mg STK-MED ONCE .ROUTE ; Start 05/21/17 at 09:00; Stop 05/21/17 at 09:01; Status DC Midazolam HCl (Versed) 2 mg STK-MED ONCE .ROUTE ; Start 05/21/17 at 09:00; Stop 05/21/17 at 09:01; Status DC Fentanyl Citrate (Fentanyl 2ml Vial) 100 mcg STK-MED ONCE .ROUTE ; Start at 09:00; Stop 05/21/17 at 09:01; Status DC Potassium Chloride 100 ml @ 100 mls/hr Q1H IV Last administered on 05/21/17 16:36; Start 05/21/17 at 10:00; Stop 05/21/17 at 13:59; Status DC Morphine Sulfate 2 mg PRN Q2HR PRN IV PAIN Last administered on 05/22/17 04:17 ; Start 05/21/17 at 09:30 Neostigmine Methylsulfate 5 mg STK-MED ONCE .ROUTE ; Start 05/21/17 at 09:52; Stop 05/21/17 at 09:53; Status DC Glycopyrrolate (Robinul) 1 mg STK-MED ONCE .ROUTE ; Start 05/21/17 at 09:52; Stop 05/21/17 at 09:53; Status DC Phenylephrine HCl 1 mg STK-MED ONCE IV ; Start 05/21/17 at 09:52; Stop 05/21/17 at 09:53; Status DC Fentanyl Citrate (Fentanyl 2ml Vial) 100 mcg STK-MED ONCE .ROUTE ; Start at 10:03; Stop 05/21/17 at 10:04; Status DC Fentanyl Citrate (Fentanyl 2ml Vial) 100 mcg STK-MED ONCE .ROUTE ; Start at 10:37; Stop 05/21/17 at 10:38; Status DC Sevoflurane (Ultane) 60 ml STK-MED ONCE IH ; Start 05/21/17 at 10:39; Stop 05/21 at 10:40; Status DC Ringer's Solution 1,000 ml @ 150 mls/hr Q6H40M IV ; Start 05/21/17 at 10:45; Stop 05/21/17 at 15:35; Status DC Metronidazole 100 ml @ 100 mls/hr Q8HRS IV Last administered on 05/24/17 06: 06; Start 05/21/17 at 14:00 Amino Acids/ Glycerin/ Electrolytes 1,000 ml @ 80 mls/hr [id number] IV Last administered on 05/24/17 06:06; Start 05/22/17 at 08:45 Acetaminophen (Tylenol) 650 mg PRN Q6HRS PRN PO FEVER; Start 05/22/17 at 08:45 Ondansetron HCl (Zofran) 4 mg PRN Q6HRS PRN IV NAUSEA/VOMITING; Start 05/22/17 at 08:45 Morphine Sulfate 2 mg PRN Q2HR PRN IV PAIN; Start 05/22/17 at 08:45; Status Cancel Tramadol HCl (Ultram) 50 mg PRN Q6HRS PRN PO PAIN Last administered on 09:08; Start 05/22/17 at 08:45 Hydralazine HCl (Apresoline) 10 mg PRN Q4HRS PRN IVP ELEVATED BP, SEE COMMENTS ; Start 05/22/17 at 08:45 Docusate Sodium (Colace) 100 mg PRN DAILY PRN PO CONSTIPATION Last administered on 05/23/17 16:49; Start 05/22/17 at 08:45 Famotidine (Pepcid) 20 mg QHS IVP Last administered on 05/23/17 21:16; Start 05/22/17 at 21:00 Enoxaparin Sodium (Lovenox 40mg Syringe) 40 mg DAILY SQ Last administered on 09:09; Start 05/22/17 at 09:00 Active Scripts Active Reported No Known Medications Prior To Admisstion (Info) Each 1 Each Vitals/I & O Vital Sign - Last 24 Hours 05/23/17 05/23/17 05/23/17 05/23/17 15:00 16:49 19:08 23:00 Temp 97.9 97.9 98.1 97.9 97.9 98.1 Pulse 82 83 99 Resp 18 16 16 B/P (MAP) 109/62 (78) 112/69 (83) 111/72 (85) Pulse Ox 95 98 96 O2 Delivery Room Air Room Air Room Air Room Air 05/24/17 05/24/17 05/24/17 05/24/17 07:00 08:30 09:08 10:08 Temp 98.1 98.1 Pulse 94 Resp 16 16 16 B/P (MAP) 116/77 (90) Pulse Ox 97 O2 Delivery Room Air Room Air Room Air PARVIZ HORTA MD May 24, 2017 11:24
[2017-05-24] MEDS ORDERED: MAGNESIUM SULFATE 2GM 50 ML IV ONE (11:30)
[2017-05-24] MEDS: POTASSIUM CHLORIDE 10MEQ 100 ML IV SCH ×2 (12:49→14:11)
[2017-05-24 15:00] VITALS: BP 105/68
[2017-05-24 19:00] VITALS: BP 125/78
[2017-05-24] MEDS: FAMOTIDINE 20 MG/2 ML VIAL IVP SCH (21:06)
[2017-05-24 23:00] VITALS: BP 111/76
[2017-05-25] MEDS: PIPERACILLIN/TAZOBACTAM 3.375 GM in IV NORMAL SALINE 50ML 50 ML IV SCH ×5 (00:50→21:53)
[2017-05-25] MEDS: AMINO AC 3%/ELECTROLYTE/GLYCER 1,000 ML IV SCH ×2 (00:50→12:18)
[2017-05-25 03:00] VITALS: BP 102/82
[2017-05-25 04:13] LABS: BASO % 0 % (0-3); EOS % 2 % (0-3); HEMATOCRIT 35.3 % (36.0-47.0); HEMOGLOBIN 11.6 g/dL (12.0-15.5); LYMPH # 2.2 x10^3/uL (1.0-4.8); LYMPH % 16 % (24-48); MEAN CORPUSCULAR HEMOGLOBIN 28 pg (25-35); MEAN CORPUSCULAR HGB CONC 33 g/dL (31-37); MEAN CORPUSCULAR VOLUME 86 fL (79-100); MONO % 7 % (0-9); NEUT % 75 % (31-73); PLATELET COUNT 445 x10^3/uL (140-400); RED BLOOD COUNT 4.11 x10^6/uL (3.50-5.40); RED CELL DISTRIBUTION WIDTH 13.9 % (11.5-14.5); WHITE BLOOD COUNT 13.6 x10^3/uL (4.0-11.0)
[2017-05-25 05:08] LABS: ALBUMIN 1.8 g/dL (3.4-5.0); ALBUMIN/GLOBULIN RATIO 0.5 (1.0-1.7); CALCIUM 7.9 mg/dL (8.5-10.1); CREATININE 0.5 mg/dL (0.6-1.0); GFR 166.2; POTASSIUM 3.5 mmol/L (3.5-5.1); TOTAL BILIRUBIN 0.3 mg/dL (0.2-1.0); TOTAL PROTEIN 5.7 g/dL (6.4-8.2)
[2017-05-25 07:00] VITALS: BP 114/77
[2017-05-25] MEDS: ENOXAPARIN 40 MG/0.4 ML SYRINGE. SQ SCH (09:16)
--- NOTE | 2017-05-25 10:28 | PDOC ---
PROGRESS NOTES Chief Complaint Chief Complaint 1, acute diverticulitis with diverticular abcess, JANNET drain placed in surg 2. nausea, poor PO intake 3. Mild hypokalemia - replace IV 4. overweight, BMI 29 5. sepsis on admit 6. hypocalcemia History of Present Illness History of Present Illness pain much better this AM, reports 0 has stooled, eating clears well, will advance to fulls now, cont to advance diet if no pain, per Surg eval, no DC plan yet still on zosyn and flagyl cont JANNET clear liquid as per sx add ppn Vitals Vitals Vital Signs Date Time Temp Pulse Resp B/P (MAP) Pulse Ox O2 Delivery O2 Flow Rate FiO2 05/25/17 07:00 98.5 97 18 114/77 (89) 95 Room Air 98.5 05/24/17 21:16 2.0 Physical Exam General: Alert, Oriented X3, Cooperative, No acute distress Heart: Regular rate, Normal S1, Normal S2, No murmurs Lungs: Clear Abdomen: Soft, Other (mild distention, JANNET minimal drainage, incision c/d/i, no erythema ) Extremities: No clubbing, No cyanosis, No edema Skin: No rashes, No significant lesion Labs LABS Laboratory Tests Test 05/25/17 03:50 White Blood Count 13.6 x10^3/uL (4.0-11.0) Red Blood Count 4.11 x10^6/uL (3.50-5.40) Hemoglobin 11.6 g/dL (12.0-15.5) Hematocrit 35.3 % (36.0-47.0) Mean Corpuscular Volume 86 fL (79-100) Mean Corpuscular Hemoglobin 28 pg (25-35) Mean Corpuscular Hemoglobin Concent 33 g/dL (31-37) Red Cell Distribution Width 13.9 % (11.5-14.5) Platelet Count 445 x10^3/uL (140-400) Neutrophils (%) (Auto) 75 % (31-73) Lymphocytes (%) (Auto) 16 % (24-48) Monocytes (%) (Auto) 7 % (0-9) Eosinophils (%) (Auto) 2 % (0-3) Basophils (%) (Auto) 0 % (0-3) Neutrophils # (Auto) 10.2 x10^3uL (1.8-7.7) Lymphocytes # (Auto) 2.2 x10^3/uL (1.0-4.8) Monocytes # (Auto) 0.9 x10^3/uL (0.0-1.1) Eosinophils # (Auto) 0.3 x10^3/uL (0.0-0.7) Basophils # (Auto) 0.0 x10^3/uL (0.0-0.2) Sodium Level 139 mmol/L (136-145) Potassium Level 3.5 mmol/L (3.5-5.1) Chloride Level 105 mmol/L (98-107) Carbon Dioxide Level 29 mmol/L (21-32) Anion Gap 5 (6-14) Blood Urea Nitrogen 8 mg/dL (7-20) Creatinine 0.5 mg/dL (0.6-1.0) Estimated GFR (Cockcroft-Gault) 166.2 BUN/Creatinine Ratio 16 (6-20) Glucose Level 107 mg/dL (70-99) Calcium Level 7.9 mg/dL (8.5-10.1) Total Bilirubin 0.3 mg/dL (0.2-1.0) Aspartate Amino Transf (AST/SGOT) 20 U/L (15-37) Alanine Aminotransferase (ALT/SGPT) 29 U/L (14-59) Alkaline Phosphatase 87 U/L (46-116) Total Protein 5.7 g/dL (6.4-8.2) Albumin 1.8 g/dL (3.4-5.0) Albumin/Globulin Ratio 0.5 (1.0-1.7) Review of Systems Review of Systems no n.v/d Assessment and Plan Assessmemt and Plan cont current Problems: Comment Review of Relevant I have reviewed the following items enoc (where applicable) has been applied. Labs Laboratory Tests Test 05/24/17 03:40 05/25/17 03:50 White Blood Count 13.6 x10^3/uL (4.0-11.0) 13.6 x10^3/uL (4.0-11.0) Red Blood Count 4.16 x10^6/uL (3.50-5.40) 4.11 x10^6/uL (3.50-5.40) Hemoglobin 11.9 g/dL (12.0-15.5) 11.6 g/dL (12.0-15.5) Hematocrit 35.8 % (36.0-47.0) 35.3 % (36.0-47.0) Mean Corpuscular Volume 86 fL (79-100) 86 fL (79-100) Mean Corpuscular Hemoglobin 29 pg (25-35) 28 pg (25-35) Mean Corpuscular Hemoglobin Concent 33 g/dL (31-37) 33 g/dL (31-37) Red Cell Distribution Width 14.0 % (11.5-14.5) 13.9 % (11.5-14.5) Platelet Count 450 x10^3/uL (140-400) 445 x10^3/uL (140-400) Neutrophils (%) (Auto) 76 % (31-73) 75 % (31-73) Lymphocytes (%) (Auto) 15 % (24-48) 16 % (24-48) Monocytes (%) (Auto) 8 % (0-9) 7 % (0-9) Eosinophils (%) (Auto) 1 % (0-3) 2 % (0-3) Basophils (%) (Auto) 1 % (0-3) 0 % (0-3) Neutrophils # (Auto) 10.3 x10^3uL (1.8-7.7) 10.2 x10^3uL (1.8-7.7) Lymphocytes # (Auto) 2.0 x10^3/uL (1.0-4.8) 2.2 x10^3/uL (1.0-4.8) Monocytes # (Auto) 1.0 x10^3/uL (0.0-1.1) 0.9 x10^3/uL (0.0-1.1) Eosinophils # (Auto) 0.1 x10^3/uL (0.0-0.7) 0.3 x10^3/uL (0.0-0.7) Basophils # (Auto) 0.1 x10^3/uL (0.0-0.2) 0.0 x10^3/uL (0.0-0.2) Sodium Level 138 mmol/L (136-145) 139 mmol/L (136-145) Potassium Level 3.2 mmol/L (3.5-5.1) 3.5 mmol/L (3.5-5.1) Chloride Level 103 mmol/L (98-107) 105 mmol/L (98-107) Carbon Dioxide Level 29 mmol/L (21-32) 29 mmol/L (21-32) Anion Gap 6 (6-14) 5 (6-14) Blood Urea Nitrogen 9 mg/dL (7-20) 8 mg/dL (7-20) Creatinine 0.5 mg/dL (0.6-1.0) 0.5 mg/dL (0.6-1.0) Estimated GFR (Cockcroft-Gault) 166.2 166.2 Glucose Level 118 mg/dL (70-99) 107 mg/dL (70-99) Calcium Level 7.7 mg/dL (8.5-10.1) 7.9 mg/dL (8.5-10.1) BUN/Creatinine Ratio 16 (6-20) Total Bilirubin 0.3 mg/dL (0.2-1.0) Aspartate Amino Transf (AST/SGOT) 20 U/L (15-37) Alanine Aminotransferase (ALT/SGPT) 29 U/L (14-59) Alkaline Phosphatase 87 U/L (46-116) Total Protein 5.7 g/dL (6.4-8.2) Albumin 1.8 g/dL (3.4-5.0) Albumin/Globulin Ratio 0.5 (1.0-1.7) Laboratory Tests Test 05/25/17 03:50 White Blood Count 13.6 x10^3/uL (4.0-11.0) Red Blood Count 4.11 x10^6/uL (3.50-5.40) Hemoglobin 11.6 g/dL (12.0-15.5) Hematocrit 35.3 % (36.0-47.0) Mean Corpuscular Volume 86 fL (79-100) Mean Corpuscular Hemoglobin 28 pg (25-35) Mean Corpuscular Hemoglobin Concent 33 g/dL (31-37) Red Cell Distribution Width 13.9 % (11.5-14.5) Platelet Count 445 x10^3/uL (140-400) Neutrophils (%) (Auto) 75 % (31-73) Lymphocytes (%) (Auto) 16 % (24-48) Monocytes (%) (Auto) 7 % (0-9) Eosinophils (%) (Auto) 2 % (0-3) Basophils (%) (Auto) 0 % (0-3) Neutrophils # (Auto) 10.2 x10^3uL (1.8-7.7) Lymphocytes # (Auto) 2.2 x10^3/uL (1.0-4.8) Monocytes # (Auto) 0.9 x10^3/uL (0.0-1.1) Eosinophils # (Auto) 0.3 x10^3/uL (0.0-0.7) Basophils # (Auto) 0.0 x10^3/uL (0.0-0.2) Sodium Level 139 mmol/L (136-145) Potassium Level 3.5 mmol/L (3.5-5.1) Chloride Level 105 mmol/L (98-107) Carbon Dioxide Level 29 mmol/L (21-32) Anion Gap 5 (6-14) Blood Urea Nitrogen 8 mg/dL (7-20) Creatinine 0.5 mg/dL (0.6-1.0) Estimated GFR (Cockcroft-Gault) 166.2 BUN/Creatinine Ratio 16 (6-20) Glucose Level 107 mg/dL (70-99) Calcium Level 7.9 mg/dL (8.5-10.1) Total Bilirubin 0.3 mg/dL (0.2-1.0) Aspartate Amino Transf (AST/SGOT) 20 U/L (15-37) Alanine Aminotransferase (ALT/SGPT) 29 U/L (14-59) Alkaline Phosphatase 87 U/L (46-116) Total Protein 5.7 g/dL (6.4-8.2) Albumin 1.8 g/dL (3.4-5.0) Albumin/Globulin Ratio 0.5 (1.0-1.7) Microbiology 05/20/17 Urine Culture - Final, Complete 05/20/17 Urine Culture Result 1 (ANDREINA) - Final, Complete Medications Current Medications Sodium Chloride 1,000 ml @ 1,000 mls/hr 1X ONCE IV Last administered on t 20:40; Start 05/20/17 at 20:30; Stop 05/20/17 at 21:29; Status DC Ondansetron HCl (Zofran) 4 mg 1X ONCE IV Last administered on 05/20/17 20:47 ; Start 05/20/17 at 20:45; Stop 05/20/17 at 20:46; Status DC Fentanyl Citrate (Fentanyl 2ml Vial) 50 mcg 1X ONCE IV Last administered on 20:47; Start 05/20/17 at 20:45; Stop 05/20/17 at 20:46; Status DC Iohexol (Omnipaque 300 Mg/ml) 75 ml 1X ONCE IV Last administered on 05/20/17 21:21; Start 05/20/17 at 21:00; Stop 05/20/17 at 21:01; Status DC Info (Do NOT chart on this entry -- for MONITORING) 1 each PRN DAILY PRN MC SEE COMMENTS; Start 05/20/17 at 21:00; Stop 05/22/17 at 20:59; Status DC Piperacillin Sod/ Tazobactam Sod 3.375 gm/Sodium Chloride 50 ml @ 100 mls/hr 1X ONCE IV Last administered on 05/20/17 22:42; Start 05/20/17 at 22:30; Stop 05/20/17 at 22:59; Status DC Ondansetron HCl (Zofran) 4 mg PRN Q8HRS PRN IV NAUSEA/VOMITING; Start 05/20/17 at 22:30; Stop 05/21/17 at 22:29; Status DC Fentanyl Citrate (Fentanyl 2ml Vial) 50 mcg PRN Q1HR PRN IV PAIN Last administered on 05/21/17 22:16; Start 05/20/17 at 22:30; Stop 05/21/17 at 22:29 ; Status DC Sodium Chloride 1,000 ml @ 125 mls/hr Q8H IV Last administered on 05/21/17 12 :56; Start 05/20/17 at 22:30; Stop 05/21/17 at 22:29; Status DC Piperacillin Sod/ Tazobactam Sod (Zosyn Per Pharmacy) 1 each PRN DAILY PRN MC SEE COMMENTS; Start 05/20/17 at 22:30 Pantoprazole Sodium (Protonix Vial) 40 mg 1X ONCE IVP Last administered on 22:54; Start 05/20/17 at 22:45; Stop 05/20/17 at 22:46; Status DC Pantoprazole Sodium 80 mg/ Sodium Chloride 100 ml @ 10 mls/hr 1X ONCE IV Last administered on 05/20/17 22:54; Start 05/20/17 at 22:45; Stop 05/21/17 at 08:44; Status DC Sodium Chloride 1,000 ml @ 1,000 mls/hr 1X ONCE IV Last administered on 22:54; Start 05/20/17 at 22:30; Stop 05/20/17 at 23:29; Status DC Piperacillin Sod/ Tazobactam Sod 3.375 gm/Sodium Chloride 50 ml @ 100 mls/hr Q6HRS IV Last administered on 05/25/17 07:20; Start 05/21/17 at 06:00 Info (Do NOT chart on this placeholder) 1 each 1X ONCE MC ; Start 05/21/17 at 01:30; Stop 05/21/17 at 01:31; Status UNV Influenza Virus Vaccine Quadrival (Fluarix Quad [id number] Syringe) 0.5 ml ONCE ONCE VAX IM Last administered on 05/22/17 11:05; Start 05/21/17 at 09:00; Stop 05/21/17 at 09:01; Status DC Pantoprazole Sodium 80 mg/ Sodium Chloride 100 ml @ 10 mls/hr Q10H IV Last administered on 05/22/17 04:17; Start 05/21/17 at 06:45; Stop 05/22/17 at 08:41 ; Status DC Ondansetron HCl (Zofran) 4 mg PRN Q6HRS PRN IV NAUSEA/VOMITING; Start 05/21/17 at 07:30; Stop 05/21/17 at 19:00; Status DC Fentanyl Citrate (Fentanyl 2ml Vial) 25 mcg PRN Q5MIN PRN IV MILD PAIN; Start 05/21/17 at 07:30; Stop 05/21/17 at 19:00; Status DC Fentanyl Citrate (Fentanyl 2ml Vial) 50 mcg PRN Q5MIN PRN IV MODERATE PAIN Last administered on 05/21/17 11:35; Start 05/21/17 at 07:30; Stop 05/21/17 at 19:00; Status DC Morphine Sulfate 1 mg PRN Q10MIN PRN IV SEVERE PAIN; Start 05/21/17 at 07:30; Stop 05/21/17 at 19:00; Status DC Ringer's Solution 1,000 ml @ 30 mls/hr Q24H IV Last administered on 05/21/17 07:19; Start 05/21/17 at 07:19; Stop 05/21/17 at 19:18; Status DC Lidocaine HCl (Xylocaine-Mpf 1% Vial) 2 ml 1X PRN PRN ID IV START; Start at 07:30; Stop 05/21/17 at 19:00; Status DC Hydromorphone HCl (Dilaudid) 0.5 mg PRN Q10MIN PRN IV SEV PAIN, Second choice Last administered on 05/21/17 12:12; Start 05/21/17 at 07:30; Stop 05/21/17 at 19:00; Status DC Prochlorperazine Edisylate (Compazine) 5 mg PACU PRN PRN IV NAUSEA, MRX1; Start 05/21/17 at 07:30; Stop 05/21/17 at 19:00; Status DC Bupivacaine HCl/ Epinephrine Bitart (Sensorcaine-Epi 0.25%-1:[id number] Mpf) 30 ml STK-MED ONCE .ROUTE Last administered on 05/21/17 10:09; Start 05/21/17 at 06: 48; Stop 05/21/17 at 07:48; Status DC Propofol 20 ml @ As Directed STK-MED ONCE IV ; Start 05/21/17 at 09:00; Stop at 09:01; Status DC Lidocaine HCl (Lidocaine Pf 2% Vial) 5 ml STK-MED ONCE .ROUTE ; Start 05/21/17 at 09:00; Stop 05/21/17 at 09:01; Status DC Rocuronium [place] (Zemuron) 100 mg STK-MED ONCE .ROUTE ; Start 05/21/17 at 09: 00; Stop 05/21/17 at 09:01; Status DC Succinylcholine Chloride (Anectine) 200 mg STK-MED ONCE .ROUTE ; Start 05/21/17 at 09:00; Stop 05/21/17 at 09:01; Status DC Midazolam HCl (Versed) 2 mg STK-MED ONCE .ROUTE ; Start 05/21/17 at 09:00; Stop 05/21/17 at 09:01; Status DC Fentanyl Citrate (Fentanyl 2ml Vial) 100 mcg STK-MED ONCE .ROUTE ; Start at 09:00; Stop 05/21/17 at 09:01; Status DC Potassium Chloride 100 ml @ 100 mls/hr Q1H IV Last administered on 05/21/17 16:36; Start 05/21/17 at 10:00; Stop 05/21/17 at 13:59; Status DC Morphine Sulfate 2 mg PRN Q2HR PRN IV PAIN Last administered on 05/22/17 04:17 ; Start 05/21/17 at 09:30 Neostigmine Methylsulfate 5 mg STK-MED ONCE .ROUTE ; Start 05/21/17 at 09:52; Stop 05/21/17 at 09:53; Status DC Glycopyrrolate (Robinul) 1 mg STK-MED ONCE .ROUTE ; Start 05/21/17 at 09:52; Stop 05/21/17 at 09:53; Status DC Phenylephrine HCl 1 mg STK-MED ONCE IV ; Start 05/21/17 at 09:52; Stop 05/21/17 at 09:53; Status DC Fentanyl Citrate (Fentanyl 2ml Vial) 100 mcg STK-MED ONCE .ROUTE ; Start at 10:03; Stop 05/21/17 at 10:04; Status DC Fentanyl Citrate (Fentanyl 2ml Vial) 100 mcg STK-MED ONCE .ROUTE ; Start at 10:37; Stop 05/21/17 at 10:38; Status DC Sevoflurane (Ultane) 60 ml STK-MED ONCE IH ; Start 05/21/17 at 10:39; Stop 05/21 at 10:40; Status DC Ringer's Solution 1,000 ml @ 150 mls/hr Q6H40M IV ; Start 05/21/17 at 10:45; Stop 05/21/17 at 15:35; Status DC Metronidazole 100 ml @ 100 mls/hr Q8HRS IV Last administered on 05/25/17t 05: 35; Start 05/21/17 at 14:00 Amino Acids/ Glycerin/ Electrolytes 1,000 ml @ 80 mls/hr [id number] IV Last administered on 05/25/17 00:50; Start 05/22/17 at 08:45 Acetaminophen (Tylenol) 650 mg PRN Q6HRS PRN PO FEVER; Start 05/22/17 at 08:45 Ondansetron HCl (Zofran) 4 mg PRN Q6HRS PRN IV NAUSEA/VOMITING; Start 05/22/17 at 08:45 Morphine Sulfate 2 mg PRN Q2HR PRN IV PAIN; Start 05/22/17 at 08:45; Status Cancel Tramadol HCl (Ultram) 50 mg PRN Q6HRS PRN PO PAIN Last administered on 21:16; Start 05/22/17 at 08:45 Hydralazine HCl (Apresoline) 10 mg PRN Q4HRS PRN IVP ELEVATED BP, SEE COMMENTS ; Start 05/22/17 at 08:45 Docusate Sodium (Colace) 100 mg PRN DAILY PRN PO CONSTIPATION Last administered on 05/23/17 16:49; Start 05/22/17 at 08:45 Famotidine (Pepcid) 20 mg QHS IVP Last administered on 05/24/17 21:06; Start 05/22/17 at 21:00 Enoxaparin Sodium (Lovenox 40mg Syringe) 40 mg DAILY SQ Last administered on 09:16; Start 05/22/17 at 09:00 Potassium Chloride 100 ml @ 100 mls/hr Q1H IV Last administered on 05/24/17 14:11; Start 05/24/17 at 11:30; Stop 05/24/17 at 13:29; Status DC Magnesium Sulfate/ Dextrose 50 ml @ 25 mls/hr 1X ONCE IV Last administered on 05/24/17 11:50; Start 05/24/17 at 11:30; Stop 05/24/17 at 13:29; Status DC Active Scripts Active Reported No Known Medications Prior To Admisstion (Info) Each 1 Each Vitals/I & O Vital Sign - Last 24 Hours 05/24/17 05/24/17 05/24/17 05/24/17 11:00 15:00 19:00 20:00 Temp 97.9 98.8 99.1 97.9 98.8 99.1 Pulse 101 89 88 Resp 16 18 18 B/P (MAP) 109/72 (84) 105/68 (80) 125/78 (94) Pulse Ox 97 96 97 O2 Delivery Room Air Room Air Room Air Room Air 05/24/17 05/24/17 05/25/17 05/25/17 21:16 23:00 03:00 07:00 Temp 97.7 97.9 98.5 97.7 97.9 98.5 Pulse 99 99 97 Resp 18 18 18 B/P (MAP) 111/76 (88) 102/82 (89) 114/77 (89) Pulse Ox 96 95 94 95 O2 Delivery Room Air Room Air Room Air Room Air O2 Flow Rate 2.0 PARVIZ HORTA MD May 25, 2017 10:28
[2017-05-25 11:00] VITALS: BP 107/78
--- NOTE | 2017-05-25 11:43 | PDOC ---
LILA HOLLEY RADIATION THERAPY TECHNICIAN 05/25/17 1143: SURGICAL PROGRESS NOTE Subjective minimal pain at drain site no n/v + stool Vital Signs Vital Signs Date Time Temp Pulse Resp B/P (MAP) Pulse Ox O2 Delivery O2 Flow Rate FiO2 05/25/17 08:00 Room Air 05/25/17 07:00 98.5 97 18 114/77 (89) 95 98.5 05/24/17 21:16 2.0 General: Alert, Oriented X3, Cooperative, No acute distress Abdomen: Soft, Other (incision c/d/i, no erythema, minimal serous drainage in JANNET) Labs Laboratory Tests Test 05/24/17 03:40 05/25/17 03:50 White Blood Count 13.6 x10^3/uL (4.0-11.0) 13.6 x10^3/uL (4.0-11.0) Red Blood Count 4.16 x10^6/uL (3.50-5.40) 4.11 x10^6/uL (3.50-5.40) Hemoglobin 11.9 g/dL (12.0-15.5) 11.6 g/dL (12.0-15.5) Hematocrit 35.8 % (36.0-47.0) 35.3 % (36.0-47.0) Mean Corpuscular Volume 86 fL (79-100) 86 fL (79-100) Mean Corpuscular Hemoglobin 29 pg (25-35) 28 pg (25-35) Mean Corpuscular Hemoglobin Concent 33 g/dL (31-37) 33 g/dL (31-37) Red Cell Distribution Width 14.0 % (11.5-14.5) 13.9 % (11.5-14.5) Platelet Count 450 x10^3/uL (140-400) 445 x10^3/uL (140-400) Neutrophils (%) (Auto) 76 % (31-73) 75 % (31-73) Lymphocytes (%) (Auto) 15 % (24-48) 16 % (24-48) Monocytes (%) (Auto) 8 % (0-9) 7 % (0-9) Eosinophils (%) (Auto) 1 % (0-3) 2 % (0-3) Basophils (%) (Auto) 1 % (0-3) 0 % (0-3) Neutrophils # (Auto) 10.3 x10^3uL (1.8-7.7) 10.2 x10^3uL (1.8-7.7) Lymphocytes # (Auto) 2.0 x10^3/uL (1.0-4.8) 2.2 x10^3/uL (1.0-4.8) Monocytes # (Auto) 1.0 x10^3/uL (0.0-1.1) 0.9 x10^3/uL (0.0-1.1) Eosinophils # (Auto) 0.1 x10^3/uL (0.0-0.7) 0.3 x10^3/uL (0.0-0.7) Basophils # (Auto) 0.1 x10^3/uL (0.0-0.2) 0.0 x10^3/uL (0.0-0.2) Sodium Level 138 mmol/L (136-145) 139 mmol/L (136-145) Potassium Level 3.2 mmol/L (3.5-5.1) 3.5 mmol/L (3.5-5.1) Chloride Level 103 mmol/L (98-107) 105 mmol/L (98-107) Carbon Dioxide Level 29 mmol/L (21-32) 29 mmol/L (21-32) Anion Gap 6 (6-14) 5 (6-14) Blood Urea Nitrogen 9 mg/dL (7-20) 8 mg/dL (7-20) Creatinine 0.5 mg/dL (0.6-1.0) 0.5 mg/dL (0.6-1.0) Estimated GFR (Cockcroft-Gault) 166.2 166.2 Glucose Level 118 mg/dL (70-99) 107 mg/dL (70-99) Calcium Level 7.7 mg/dL (8.5-10.1) 7.9 mg/dL (8.5-10.1) BUN/Creatinine Ratio 16 (6-20) Total Bilirubin 0.3 mg/dL (0.2-1.0) Aspartate Amino Transf (AST/SGOT) 20 U/L (15-37) Alanine Aminotransferase (ALT/SGPT) 29 U/L (14-59) Alkaline Phosphatase 87 U/L (46-116) Total Protein 5.7 g/dL (6.4-8.2) Albumin 1.8 g/dL (3.4-5.0) Albumin/Globulin Ratio 0.5 (1.0-1.7) Laboratory Tests Test 05/25/17 03:50 White Blood Count 13.6 x10^3/uL (4.0-11.0) Red Blood Count 4.11 x10^6/uL (3.50-5.40) Hemoglobin 11.6 g/dL (12.0-15.5) Hematocrit 35.3 % (36.0-47.0) Mean Corpuscular Volume 86 fL (79-100) Mean Corpuscular Hemoglobin 28 pg (25-35) Mean Corpuscular Hemoglobin Concent 33 g/dL (31-37) Red Cell Distribution Width 13.9 % (11.5-14.5) Platelet Count 445 x10^3/uL (140-400) Neutrophils (%) (Auto) 75 % (31-73) Lymphocytes (%) (Auto) 16 % (24-48) Monocytes (%) (Auto) 7 % (0-9) Eosinophils (%) (Auto) 2 % (0-3) Basophils (%) (Auto) 0 % (0-3) Neutrophils # (Auto) 10.2 x10^3uL (1.8-7.7) Lymphocytes # (Auto) 2.2 x10^3/uL (1.0-4.8) Monocytes # (Auto) 0.9 x10^3/uL (0.0-1.1) Eosinophils # (Auto) 0.3 x10^3/uL (0.0-0.7) Basophils # (Auto) 0.0 x10^3/uL (0.0-0.2) Sodium Level 139 mmol/L (136-145) Potassium Level 3.5 mmol/L (3.5-5.1) Chloride Level 105 mmol/L (98-107) Carbon Dioxide Level 29 mmol/L (21-32) Anion Gap 5 (6-14) Blood Urea Nitrogen 8 mg/dL (7-20) Creatinine 0.5 mg/dL (0.6-1.0) Estimated GFR (Cockcroft-Gault) 166.2 BUN/Creatinine Ratio 16 (6-20) Glucose Level 107 mg/dL (70-99) Calcium Level 7.9 mg/dL (8.5-10.1) Total Bilirubin 0.3 mg/dL (0.2-1.0) Aspartate Amino Transf (AST/SGOT) 20 U/L (15-37) Alanine Aminotransferase (ALT/SGPT) 29 U/L (14-59) Alkaline Phosphatase 87 U/L (46-116) Total Protein 5.7 g/dL (6.4-8.2) Albumin 1.8 g/dL (3.4-5.0) Albumin/Globulin Ratio 0.5 (1.0-1.7) Assessment/Plan s/p xlap continue abx advance diet continue drain for now Problems: LO CURRIE MD 05/25/17 2001: SURGICAL PROGRESS NOTE Assessment/Plan Agree with Juliet's assessment and plan. Problems: LILA HOLLEY APRN May 25, 2017 11:43 LO CURRIE MD May 25, 2017 20:01
[2017-05-25] MEDS: traMADol 50 MG TABLET PO PRN (12:17)
[2017-05-25 15:00] VITALS: BP 111/73
[2017-05-25 19:20] VITALS: BP 129/84
[2017-05-25] MEDS: FAMOTIDINE 20 MG/2 ML VIAL IVP SCH (21:00)
[2017-05-25 23:43] VITALS: BP 128/80
[2017-05-26] MEDS: AMINO AC 3%/ELECTROLYTE/GLYCER 1,000 ML IV SCH (02:37)
[2017-05-26 03:55] VITALS: BP 104/71
[2017-05-26] MEDS: PIPERACILLIN/TAZOBACTAM 3.375 GM in IV NORMAL SALINE 50ML 50 ML IV SCH ×3 (05:38→17:48)
[2017-05-26 07:00] VITALS: BP 108/73
[2017-05-26] MEDS: ENOXAPARIN 40 MG/0.4 ML SYRINGE. SQ SCH (10:11)
--- NOTE | 2017-05-26 10:43 | PDOC ---
SURGICAL PROGRESS NOTE Subjective Doing well, no pain tolerating diet having BM's Vital Signs Vital Signs Date Time Temp Pulse Resp B/P (MAP) Pulse Ox O2 Delivery O2 Flow Rate FiO2 05/26/17 07:00 97.9 92 18 108/73 (85) 97 Room Air 97.9 05/25/17 14:33 2.0 PATIENT HAS A ESCAMILLA: No General: Alert, Oriented X3, Cooperative, No acute distress Abdomen: Normal bowel sounds, Soft, No tenderness, Other (JANNET with serous drainage) Labs Laboratory Tests Test 05/25/17 03:50 White Blood Count 13.6 x10^3/uL (4.0-11.0) Red Blood Count 4.11 x10^6/uL (3.50-5.40) Hemoglobin 11.6 g/dL (12.0-15.5) Hematocrit 35.3 % (36.0-47.0) Mean Corpuscular Volume 86 fL (79-100) Mean Corpuscular Hemoglobin 28 pg (25-35) Mean Corpuscular Hemoglobin Concent 33 g/dL (31-37) Red Cell Distribution Width 13.9 % (11.5-14.5) Platelet Count 445 x10^3/uL (140-400) Neutrophils (%) (Auto) 75 % (31-73) Lymphocytes (%) (Auto) 16 % (24-48) Monocytes (%) (Auto) 7 % (0-9) Eosinophils (%) (Auto) 2 % (0-3) Basophils (%) (Auto) 0 % (0-3) Neutrophils # (Auto) 10.2 x10^3uL (1.8-7.7) Lymphocytes # (Auto) 2.2 x10^3/uL (1.0-4.8) Monocytes # (Auto) 0.9 x10^3/uL (0.0-1.1) Eosinophils # (Auto) 0.3 x10^3/uL (0.0-0.7) Basophils # (Auto) 0.0 x10^3/uL (0.0-0.2) Sodium Level 139 mmol/L (136-145) Potassium Level 3.5 mmol/L (3.5-5.1) Chloride Level 105 mmol/L (98-107) Carbon Dioxide Level 29 mmol/L (21-32) Anion Gap 5 (6-14) Blood Urea Nitrogen 8 mg/dL (7-20) Creatinine 0.5 mg/dL (0.6-1.0) Estimated GFR (Cockcroft-Gault) 166.2 BUN/Creatinine Ratio 16 (6-20) Glucose Level 107 mg/dL (70-99) Calcium Level 7.9 mg/dL (8.5-10.1) Total Bilirubin 0.3 mg/dL (0.2-1.0) Aspartate Amino Transf (AST/SGOT) 20 U/L (15-37) Alanine Aminotransferase (ALT/SGPT) 29 U/L (14-59) Alkaline Phosphatase 87 U/L (46-116) Total Protein 5.7 g/dL (6.4-8.2) Albumin 1.8 g/dL (3.4-5.0) Albumin/Globulin Ratio 0.5 (1.0-1.7) 25-Hydroxy Vitamin D Total 7.9 ng/mL (30.0-100.0) Assessment/Plan Perforated divertculitis S/P xlap washout and drain D/C drain OK to D/C home, recommend 2 weeks oral abx and Colonoscopy in 4 to 6 weeks Problems: LO CURRIE MD May 26, 2017 10:43
[2017-05-26 11:00] VITALS: BP 104/70
[2017-05-26] MEDS ORDERED: metroNIDAZOLE 500 MG TABLET PO SCH (14:00)
[2017-05-26 15:00] VITALS: BP 116/77
[2017-05-26] MEDS ORDERED: AMOX1TAB61 PO (16:42)
[2017-05-26] MEDS ORDERED: FAMO20TA5 PO (16:42)
[2017-05-26] MEDS ORDERED: DOCU-109 PO (16:42)
[2017-05-26] MEDS ORDERED: FAMOTIDINE 20 MG TABLET. PO SCH (21:00)
== END 2017-05-26 19:30 | disposition home or self-care (01) | DRG 854 ==
LOC: ER 19:49 → 1 WEST ICU 22:12 → 4 NORTH 05-22 11:16
PROVIDERS: ADMIT Internal Medicine; ATTEND Internal Medicine
PROC: 0W9G0ZZ Drainage of Peritoneal Cavity, Open Approach (ICD-10-PCS; 2017-05-21)
PROC: 0WJG4ZZ Inspection of Peritoneal Cavity, Percutaneous Endoscopic Approach (ICD-10-PCS; principal; 2017-05-21 09:00)
DX: A41.9 Sepsis, unspecified organism (principal); K57.20 Diverticulitis of large intestine with perforation and abscess without bleeding; E83.51 Hypocalcemia; K25.9 Gastric ulcer, unspecified as acute or chronic, without hemorrhage or perforation; E66.9 Obesity, unspecified; E87.6 Hypokalemia; Z53.31 Laparoscopic surgical procedure converted to open procedure; Z68.29 Body mass index [BMI] 29.0-29.9, adult
CPT/HCPCS: 36415; 74177; 80048; 80053; 81001; 81025; 82150; 82306; 82553; 83605; 83690; 84484; 85007; 85025; 85610; 85730; 86850; 86900; 86901; 87086; 87641; 90686; 93005; 96361; 96374; 96375; C9113; J0330; J1170; J1650; J2250; J2270; J2370; J2405; J2543; J2704; J2710; J3010; J3480; J3490; J7030; J7060; J7120; Q9967; S0028; 99285-25; J2001

== ENCOUNTER 2018-05-30 09:00 | Inpatient (IN) | payer SELFPAY ==
[~2018-05-30] VITALS: Ht 162.6 cm; Wt 75.6 kg
[~2018-05-30 09:00] MED LIST: AMOX1TAB61 PO; DOCU-109 PO; FAMO20TA5 PO
[2018-05-30] MEDS ORDERED: IV NORMAL SALINE 1000ML BAG 1,000 ML IV ONE ×2 (09:45→12:15)
[2018-05-30] MEDS ORDERED: fentaNYL PF VIAL 100 MCG/2 ML VIAL IV ONE (09:45)
[2018-05-30 09:46] LABS: BILIRUBIN,URINE SMALL (NEG); CLARITY,URINE CLEAR; COLOR,URINE AMBER; NITRITE,URINE NEGATIVE (NEG); PH,URINE 6.5; PROTEIN,URINE 30 mg/dL (NEG-TRACE)
[2018-05-30 09:51] LABS: BASO # 0.1 x10^3/uL (0.0-0.2); BASO % 1 % (0-3); EOS % 0 % (0-3); HEMATOCRIT 41.1 % (36.0-47.0); HEMOGLOBIN 14.1 g/dL (12.0-15.5); LYMPH # 2.2 x10^3/uL (1.0-4.8); LYMPH % 11 % (24-48); MEAN CORPUSCULAR HEMOGLOBIN 30 pg (25-35); MEAN CORPUSCULAR HGB CONC 34 g/dL (31-37); MEAN CORPUSCULAR VOLUME 86 fL (79-100); MONO # 1.2 x10^3/uL (0.0-1.1); MONO % 7 % (0-9); NEUT # 15.5 x10^3uL (1.8-7.7); NEUT % 82 % (31-73); PLATELET COUNT 361 x10^3/uL (140-400); RED BLOOD COUNT 4.78 x10^6/uL (3.50-5.40); RED CELL DISTRIBUTION WIDTH 13.7 % (11.5-14.5)
[2018-05-30 10:00] LABS: BACTERIA,URINE 0 /HPF (0-FEW); SQUAMOUS EPITHELIAL CELL,UR FEW /LPF; WBC,URINE 0 /HPF (0-4)
[2018-05-30 10:06] LABS: CALCIUM 8.4 mg/dL (8.5-10.1); CREATININE 0.6 mg/dL (0.6-1.0); POTASSIUM 3.5 mmol/L (3.5-5.1)
[2018-05-30 10:12] LABS: ALBUMIN 3.4 g/dL (3.4-5.0); ALBUMIN/GLOBULIN RATIO 0.8 (1.0-1.7); TOTAL BILIRUBIN 0.7 mg/dL (0.2-1.0); TOTAL PROTEIN 7.7 g/dL (6.4-8.2)
--- NOTE | 2018-05-30 10:22 | PHYS DOC ---
Past Medical History Past Medical History: No Pertinent History Past Surgical History: Other Additional Past Surgical Histo: Perforated colon. Alcohol Use: None Drug Use: None Adult General Chief Complaint Chief Complaint: ABDOMINAL PAIN HPI HPI Patient is a 38 year old female who presents with abdominal pain x 2 days. The patient has history of bowel obstruction with surgical intervention. She states that this is similar pain. She states that the pain is generalized but she does have increased pain in the left lower quadrant. She has felt febrile at home. She did have a very small bowel movement this morning and feels like the pain is increased since then. Review of Systems Review of Systems Constitutional: Denies fever or chills [] Eyes: Denies change in visual acuity, redness, or eye pain [] HENT: Denies nasal congestion or sore throat [] Respiratory: Denies cough or shortness of breath [] Cardiovascular: No additional information not addressed in HPI [] GI: See history of present illness : Denies dysuria or hematuria [] Musculoskeletal: Denies back pain or joint pain [] Integument: Denies rash or skin lesions [] Neurologic: Denies headache, focal weakness or sensory changes [] Endocrine: Denies polyuria or polydipsia [] All other systems were reviewed and found to be within normal limits, except as documented in this note. Current Medications Current Medications Current Medications Medications (Trade) Dose Ordered Sig/Tom Start Time Stop Time Status Last Admin Dose Admin Fentanyl Citrate (Fentanyl 2ml Vial) 50 mcg PRN Q1HR PRN 05/30/18 12:30 05/30/18 13:02 DC Info (CONTRAST GIVEN -- Rx MONITORING) 1 each PRN DAILY PRN 05/30/18 10:30 05/30/18 13:02 DC Iohexol (Omnipaque 240 Mg/ml) 30 ml 1X ONCE 05/30/18 10:30 05/30/18 10:31 DC 05/30/18 11:00 30 ML Iohexol (Omnipaque 300 Mg/ml) 75 ml 1X ONCE 05/30/18 10:30 05/30/18 10:31 DC 05/30/18 11:00 75 ML Ondansetron HCl (Zofran) 4 mg PRN Q8HRS PRN 05/30/18 12:30 05/30/18 13:02 DC Piperacillin Sod/ Tazobactam Sod (Zosyn Per Pharmacy) 1 each PRN DAILY PRN 05/30/18 12:30 05/30/18 13:02 DC Piperacillin Sod/ Tazobactam Sod 3.375 gm/Sodium Chloride 50 ml @ 100 mls/hr 1X ONCE 05/30/18 12:45 05/30/18 13:02 DC 05/30/18 12:45 100 MLS/HR Sodium Chloride 1,000 ml @ 125 mls/hr Q8H 05/30/18 12:28 05/30/18 13:02 DC Allergies Allergies Allergies Coded Allergies Type Severity Reaction Last Updated Verified No Known Drug Allergies 05/21/17 No Physical Exam Physical Exam Constitutional: Well developed, well nourished, no acute distress, non-toxic appearance. [] Cardiovascular:Heart rate regular rhythm, no murmur [] Lungs & Thorax: Bilateral breath sounds clear to auscultation [] Abdomen: Bowel sounds hypoactive, firm, generalized tenderness with guarding noted to lower abdomen, no masses, no pulsatile masses. [] Skin: Warm, dry, no erythema, no rash. [] Back: No tenderness, no CVA tenderness. [] Extremities: No tenderness, no cyanosis, no clubbing, ROM intact, no edema. [] Neurologic: Alert and oriented X 3, normal motor function, normal sensory function, no focal deficits noted. [] Psychologic: Affect normal, judgement normal, mood normal. [] Current Patient Data Vital Signs Vital Signs Date Time Temp Pulse Resp B/P (MAP) Pulse Ox O2 Delivery O2 Flow Rate FiO2 05/30/18 12:54 110 20 107/55 (72) 100 05/30/18 09:10 99.1 Room Air 99.1 Lab Values Laboratory Tests Test 05/30/18 09:20 05/30/18 09:26 05/30/18 09:45 05/30/18 10:25 Urine Collection Type Unknown Urine Color Juliette Urine Clarity Clear Urine pH 6.5 Urine Specific [place] >=1.030 Urine Protein 30 mg/dL (NEG-TRACE) Urine Glucose (UA) Negative mg/dL (NEG) Urine Ketones (Stick) 40 mg/dL (NEG) Urine Blood Small (NEG) Urine Nitrite Negative (NEG) Urine Bilirubin Small (NEG) Urine Urobilinogen Dipstick 1.0 mg/dL (0.2 mg/dL) Urine Leukocyte Esterase Negative (NEG) Urine RBC 6-10 /HPF (0-2) Urine WBC 0 /HPF (0-4) Urine Squamous Epithelial Cells Few /LPF Urine Bacteria 0 /HPF (0-FEW) Urine Mucus Marked /LPF POC Urine HCG, Qualitative Hcg negative (Negative) White Blood Count 19.0 x10^3/uL (4.0-11.0) H Red Blood Count 4.78 x10^6/uL (3.50-5.40) Hemoglobin 14.1 g/dL (12.0-15.5) Hematocrit 41.1 % (36.0-47.0) Mean Corpuscular Volume 86 fL (79-100) Mean Corpuscular Hemoglobin 30 pg (25-35) Mean Corpuscular Hemoglobin Concent 34 g/dL (31-37) Red Cell Distribution Width 13.7 % (11.5-14.5) Platelet Count 361 x10^3/uL (140-400) Neutrophils (%) (Auto) 82 % (31-73) H Lymphocytes (%) (Auto) 11 % (24-48) L Monocytes (%) (Auto) 7 % (0-9) Eosinophils (%) (Auto) 0 % (0-3) Basophils (%) (Auto) 1 % (0-3) Neutrophils # (Auto) 15.5 x10^3uL (1.8-7.7) H Lymphocytes # (Auto) 2.2 x10^3/uL (1.0-4.8) Monocytes # (Auto) 1.2 x10^3/uL (0.0-1.1) H Eosinophils # (Auto) 0.0 x10^3/uL (0.0-0.7) Basophils # (Auto) 0.1 x10^3/uL (0.0-0.2) Segmented Neutrophils % 79 % (35-66) H Band Neutrophils % 3 % (0-9) Lymphocytes % 16 % (24-48) L Monocytes % 1 % (0-10) Basophils % 1 % (0-3) Platelet Estimate Adequate (ADEQUATE) Sodium Level 140 mmol/L (136-145) Potassium Level 3.5 mmol/L (3.5-5.1) Chloride Level 103 mmol/L (98-107) Carbon Dioxide Level 27 mmol/L (21-32) Anion Gap 10 (6-14) Blood Urea Nitrogen 7 mg/dL (7-20) Creatinine 0.6 mg/dL (0.6-1.0) Estimated GFR (Cockcroft-Gault) 134.0 BUN/Creatinine Ratio 12 (6-20) Glucose Level 132 mg/dL (70-99) H Calcium Level 8.4 mg/dL (8.5-10.1) L Total Bilirubin 0.7 mg/dL (0.2-1.0) Aspartate Amino Transferase (AST) 12 U/L (15-37) L Alanine Aminotransferase (ALT) 24 U/L (14-59) Alkaline Phosphatase 90 U/L (46-116) Total Protein 7.7 g/dL (6.4-8.2) Albumin 3.4 g/dL (3.4-5.0) Albumin/Globulin Ratio 0.8 (1.0-1.7) L Lactic Acid Level 0.6 mmol/L (0.4-2.0) Laboratory Tests 05/30/18 09:45 Laboratory Tests 05/30/18 09:45 EKG EKG [] Radiology/Procedures Radiology/Procedures []PATIENT: KATALINA JEROME YACCOUNT: [id number]#: [id number] : 1980 LOCATION: ER AGE: 38 SEX: F EXAM STATUS: REG ER ORD. PHYSICIAN: JAMEY PRICE APRN REASON: abdominal pain, hx of bowel obstruction;ready at 11am PROCEDURE: CT ABD PELV W/ORAL&IV CONTRAST Examination: CT of the abdomen pelvis with IV contrast HISTORY: History of abdominal pain COMPARISON: 05/20/2017 TECHNIQUE: Axial CT images of the abdomen pelvis were performed with oral and IV contrast. Coronal and sagittal reformats are performed Exposure: One or more of the following individualized dose reduction techniques were utilized for this examination: 1. Automated exposure control 2. Adjustment of the mA and/or kV according to patient size 3. Use of iterative reconstruction technique FINDINGS: Minimal linear atelectasis right lung base. The visualized liver, spleen, adrenals grossly appears unremarkable. The stomach is mildly distended. The visualized pancreas grossly appears unremarkable. There is moderate thickening of the small bowel loops in the left mid abdomen with surrounding moderate inflammatory fat stranding. In between the inflamed loops of small bowel ,there is a air fluid collection identified measuring 3.2 x 2.4 cm. Few prominent mesenteric lymph nodes identified with the largest measuring 1.2 cm in the left midabdomen. The appendix is normal. Feces and gas noted in the colon. There is mild thickening of the wall of the proximal sigmoid colon with surrounding inflammatory fat stranding.This is a loop of sigmoid colon abuts the inflamed small bowel loops in the left mid abdomen this is best visualized on coronal image 21. Urinary bladder is mildly distended. The bilateral kidneys enhance symmetrically. The caliber of the aorta grossly appears unremarkable. Mild degenerative changes thoracolumbar spine. Small ventral hernia identified containing fat and omentum measuring 3 cm in transverse dimension at its IMPRESSION: 1. Moderate thickening of the small bowel loops in the left mid abdomen with surrounding moderate inflammatory fat stranding likely severe enteritis. There is mild thickening of the wall of the proximal sigmoid colon with surrounding inflammatory fat stranding.This is a loop of sigmoid colon abuts the inflamed small bowel loops in the left mid abdomen this is best visualized on coronal image 21 could be due to underlying enteritis or colitis. There is a 3.2 cm air-fluid collection identified between the small bowel loops and just superior to the sigmoid colon bowel loop inflammation likely an abscess. Electronically signed by: Johnie Vega MD (05/30/2018 12:13 PM) [id number] DICTATED and SIGNED BY: JOHNIE VEGA MD DATE: 05/30/18 1202 Course & Med Decision Making Course & Med Decision Making Pertinent Labs and Imaging studies reviewed. (See chart for details) [] [facility] DISCUSSED CASE WITH ME MOREAU FOR INTRAABDOMIONAL ABSCESS, SURGEON WAS CONTACTED. Dragon Disclaimer Dragon Disclaimer This electronic medical record was generated, in whole or in part, using a voice recognition dictation system. Departure Departure Impression: Primary Impression: Abscess between intestinal loops Additional Impression: Enteritis Disposition: 09 ADMITTED INPATIENT Admitting Physician: Sanjana Phillips Condition: GOOD Referrals: NO PCP (PCP) Problem Qualifiers JAMEY PRICE APRN May 30, 2018 10:22 BOB CABALLERO MD May 30, 2018 13:12
[2018-05-30] MEDS ORDERED: IOHEXOL 300 MG/ML 100ML VIAL. IV ONE (10:30)
[2018-05-30] MEDS ORDERED: IOHEXOL 240 MG/ML 50ML VIAL. PO ONE (10:30)
[2018-05-30] MEDS ORDERED: CONTRAST GIVEN. MC PRN (10:30)
[2018-05-30 11:40] LABS: % BANDS 3 % (0-9); % BASOS 1 % (0-3); % LYMPHS 16 % (24-48); % MONOS 1 % (0-10); % SEGS 79 % (35-66); PLT ESTIMATE ADEQUATE (ADEQUATE)
--- NOTE | 2018-05-30 12:16 | RAD ---
Examination: CT of the abdomen pelvis with IV contrast HISTORY: History of abdominal pain COMPARISON: 05/20/2017 TECHNIQUE: Axial CT images of the abdomen pelvis were performed with oral and IV contrast. Coronal and sagittal reformats are performed Exposure: One or more of the following individualized dose reduction techniques were utilized for this examination: 1. Automated exposure control 2. Adjustment of the mA and/or kV according to patient size 3. Use of iterative reconstruction technique FINDINGS: Minimal linear atelectasis right lung base. The visualized liver, spleen, adrenals grossly appears unremarkable. The stomach is mildly distended. The visualized pancreas grossly appears unremarkable. There is moderate thickening of the small bowel loops in the left mid abdomen with surrounding moderate inflammatory fat stranding. In between the inflamed loops of small bowel ,there is a air fluid collection identified measuring 3.2 x 2.4 cm. Few prominent mesenteric lymph nodes identified with the largest measuring 1.2 cm in the left midabdomen. The appendix is normal. Feces and gas noted in the colon. There is mild thickening of the wall of the proximal sigmoid colon with surrounding inflammatory fat stranding.This is a loop of sigmoid colon abuts the inflamed small bowel loops in the left mid abdomen this is best visualized on coronal image 21. Urinary bladder is mildly distended. The bilateral kidneys enhance symmetrically. The caliber of the aorta grossly appears unremarkable. Mild degenerative changes thoracolumbar spine. Small ventral hernia identified containing fat and omentum measuring 3 cm in transverse dimension at its IMPRESSION: 1. Moderate thickening of the small bowel loops in the left mid abdomen with surrounding moderate inflammatory fat stranding likely severe enteritis. There is mild thickening of the wall of the proximal sigmoid colon with surrounding inflammatory fat stranding.This is a loop of sigmoid colon abuts the inflamed small bowel loops in the left mid abdomen this is best visualized on coronal image 21 could be due to underlying enteritis or colitis. There is a 3.2 cm air-fluid collection identified between the small bowel loops and just superior to the sigmoid colon bowel loop inflammation likely an abscess. Electronically signed by: Johnie Vega MD (05/30/2018 12:13 PM) [id number]
[2018-05-30] MEDS ORDERED: ONDANSETRON PF 4 MG/2 ML VIAL. IV PRN (12:30)
[2018-05-30] MEDS ORDERED: PIP/TAZO PER PHARMACY MC PRN ×2 (12:30→13:15)
[2018-05-30] MEDS ORDERED: PIPERACILLIN/TAZOBACTAM 3.375 GM in IV NORMAL SALINE 50ML 50 ML IV ONE (12:45)
[2018-05-30 13:38] VITALS: BP 103/73
--- NOTE | 2018-05-30 13:53 | PDOC2 ---
LILA HOLLEY Abdirizak DOOR CUTTER 05/30/18 1353: CONSULT Date of Consult Date of Consult DATE: 05/30/18 TIME: 13:47 Reason for Consult Reason for Consult: abscess Referring Physician Referring Physician: ER Identification/Chief Complaint Chief Complaint abdominal pain Source Source: Chart review, Patient History of Present Illness Reason for Visit: [place] speaking, used lot associate phone to translate Admitted with 24 hrs of abdominal pain. Reports nausea, emesis x 1, some constipation, no diarrhea History of washout for diverticular abscess last year with Dr Prieto Past Medical History Cardiovascular: No pertinent hx Pulmonary: No pertinent hx GI: No pertinent hx Heme/Onc: No pertinent hx Hepatobiliary: No pertinent hx Psych: No pertinent hx Rheumatologic: No pertinent hx Infectious disease: No pertinent hx Renal/: No pertinent hx Endocrine: No pertinent hx Past Surgical History Past Surgical History: Other (xlap, washout) Family History Family History: No Significant Social History No ALCOHOL: none Drugs: None Current Problem List Problem List Problems Medical Problems: (1) Abscess between intestinal loops Status: Acute (2) Enteritis Status: Acute Current Medications Current Medications Current Medications Fentanyl Citrate (Fentanyl 2ml Vial) 50 mcg 1X ONCE IV Last administered on at 10:00; Start 05/30/18 at 09:45; Stop 05/30/18 at 09:46; Status DC Sodium Chloride 1,000 ml @ 1,000 mls/hr 1X ONCE IV Last administered on 05/30at 10:00; Start 05/30/18 at 09:45; Stop 05/30/18 at 10:44; Status DC Iohexol (Omnipaque 240 Mg/ml) 30 ml 1X ONCE PO Last administered on at 11:00; Start 05/30/18 at 10:30; Stop 05/30/18 at 10:31; Status DC Iohexol (Omnipaque 300 Mg/ml) 75 ml 1X ONCE IV Last administered on at 11:00; Start 05/30/18 at 10:30; Stop 05/30/18 at 10:31; Status DC Info (CONTRAST GIVEN -- Rx MONITORING) 1 each PRN DAILY PRN MC SEE COMMENTS; Start 05/30/18 at 10:30; Stop 06/01/18 at 10:29 Sodium Chloride 1,000 ml @ 1,000 mls/hr 1X ONCE IV Last administered on 05/30at 12:15; Start 05/30/18 at 12:15; Stop 05/30/18 at 13:16; Status DC Piperacillin Sod/ Tazobactam Sod (Zosyn Per Pharmacy) 1 each PRN DAILY PRN MC SEE COMMENTS; Start 05/30/18 at 12:30; Stop 05/30/18 at 13:02; Status DC Ondansetron HCl (Zofran) 4 mg PRN Q8HRS PRN IV NAUSEA/VOMITING; Start at 12:30; Stop 05/31/18 at 12:29 Fentanyl Citrate (Fentanyl 2ml Vial) 50 mcg PRN Q1HR PRN IV PAIN; Start at 12:30; Stop 05/31/18 at 12:29 Sodium Chloride 1,000 ml @ 125 mls/hr Q8H IV ; Start 05/30/18 at 12:28; Stop 05/31/18 at 12:27 Piperacillin Sod/ Tazobactam Sod 3.375 gm/Sodium Chloride 50 ml @ 100 mls/hr 1X ONCE IV Last administered on 05/30/18at 12:45; Start 05/30/18 at 12:45; Stop 05/30/18 at 13:16; Status DC Piperacillin Sod/ Tazobactam Sod (Zosyn Per Pharmacy) 1 each PRN DAILY PRN MC SEE COMMENTS; Start 05/30/18 at 13:15 Piperacillin Sod/ Tazobactam Sod 3.375 gm/Sodium Chloride 50 ml @ 100 mls/hr Q6HRS IV ; Start 05/30/18 at 18:00 Active Scripts Active Augmentin 875-125 Tablet (Amoxicillin/Potassium Clav) 1 Each Tablet 1 Tab PO BID Famotidine 20 Mg Tablet 20 Mg PO QHS Colace (Docusate Sodium) 100 Mg Capsule 100 Mg PO PRN DAILY PRN Reported No Known Medications Prior To Admisstion (Info) Each 1 Each Allergies Allergies: Coded Allergies: No Known Drug Allergies (Unverified , 05/21/17) ROS General: YES: Chills, Other (+ fevers subjectively ) PSYCHOLOGICAL ROS: No: Anxiety, Depression Eyes: No Blurry vision, No Double vision HEENT: No: Heacaches, Sore Throat Hematological and Lymphatic: No: Bleeding Problems, Blood Clots Respiratory: No: Cough, Shortness of breath Cardiovascular: No Chest Pain, No Palpitations Gastrointestinal: Yes Other (see hpi) Genitourinary: No Dysuria, No Retention Musculoskeletal: No Joint Pain, No Muscle Pain Neurological: No Confusion, No Impaired Coord/balance Skin: No Pruritus, No Rash Physical Exam General: Alert, Oriented X3, Cooperative, No acute distress HEENT: PERRLA, Mucous membr. moist/pink Lungs: Clear to auscultation, Normal air movement Heart: Regular rate, Normal S1, Normal S2, No murmurs Abdomen: Soft, Other (diffusely tender, no guarding or rebound, abd scars noted ) Extremities: No clubbing, No cyanosis Neuro: Normal gait, Normal speech Psych/Mental Status: Mental status NL, Mood NL MUSCULOSKELETAL: No deformity, No swelling Vitals VITALS Vital Signs Date Time Temp Pulse Resp B/P (MAP) Pulse Ox O2 Delivery O2 Flow Rate FiO2 05/30/18 13:38 100.5 118 18 103/73 (83) 97 Room Air 100.5 Labs Labs Laboratory Tests Test 05/30/18 09:20 05/30/18 09:26 05/30/18 09:45 05/30/18 10:25 Urine Collection Type Unknown Urine Color Juliette Urine Clarity Clear Urine pH 6.5 Urine Specific [place] >=1.030 Urine Protein 30 mg/dL (NEG-TRACE) Urine Glucose (UA) Negative mg/dL (NEG) Urine Ketones (Stick) 40 mg/dL (NEG) Urine Blood Small (NEG) Urine Nitrite Negative (NEG) Urine Bilirubin Small (NEG) Urine Urobilinogen Dipstick 1.0 mg/dL (0.2 mg/dL) Urine Leukocyte Esterase Negative (NEG) Urine RBC 6-10 /HPF (0-2) Urine WBC 0 /HPF (0-4) Urine Squamous Epithelial Cells Few /LPF Urine Bacteria 0 /HPF (0-FEW) Urine Mucus Marked /LPF Bedside Urine HCG, Qualitative Hcg negative (Negative) White Blood Count 19.0 x10^3/uL (4.0-11.0) Red Blood Count 4.78 x10^6/uL (3.50-5.40) Hemoglobin 14.1 g/dL (12.0-15.5) Hematocrit 41.1 % (36.0-47.0) Mean Corpuscular Volume 86 fL (79-100) Mean Corpuscular Hemoglobin 30 pg (25-35) Mean Corpuscular Hemoglobin Concent 34 g/dL (31-37) Red Cell Distribution Width 13.7 % (11.5-14.5) Platelet Count 361 x10^3/uL (140-400) Neutrophils (%) (Auto) 82 % (31-73) Lymphocytes (%) (Auto) 11 % (24-48) Monocytes (%) (Auto) 7 % (0-9) Eosinophils (%) (Auto) 0 % (0-3) Basophils (%) (Auto) 1 % (0-3) Neutrophils # (Auto) 15.5 x10^3uL (1.8-7.7) Lymphocytes # (Auto) 2.2 x10^3/uL (1.0-4.8) Monocytes # (Auto) 1.2 x10^3/uL (0.0-1.1) Eosinophils # (Auto) 0.0 x10^3/uL (0.0-0.7) Basophils # (Auto) 0.1 x10^3/uL (0.0-0.2) Segmented Neutrophils % 79 % (35-66) Band Neutrophils % 3 % (0-9) Lymphocytes % 16 % (24-48) Monocytes % 1 % (0-10) Basophils % 1 % (0-3) Platelet Estimate Adequate (ADEQUATE) Sodium Level 140 mmol/L (136-145) Potassium Level 3.5 mmol/L (3.5-5.1) Chloride Level 103 mmol/L (98-107) Carbon Dioxide Level 27 mmol/L (21-32) Anion Gap 10 (6-14) Blood Urea Nitrogen 7 mg/dL (7-20) Creatinine 0.6 mg/dL (0.6-1.0) Estimated GFR (Cockcroft-Gault) 134.0 BUN/Creatinine Ratio 12 (6-20) Glucose Level 132 mg/dL (70-99) Calcium Level 8.4 mg/dL (8.5-10.1) Total Bilirubin 0.7 mg/dL (0.2-1.0) Aspartate Amino Transf (AST/SGOT) 12 U/L (15-37) Alanine Aminotransferase (ALT/SGPT) 24 U/L (14-59) Alkaline Phosphatase 90 U/L (46-116) Total Protein 7.7 g/dL (6.4-8.2) Albumin 3.4 g/dL (3.4-5.0) Albumin/Globulin Ratio 0.8 (1.0-1.7) Lactic Acid Level 0.6 mmol/L (0.4-2.0) Laboratory Tests Test 05/30/18 09:20 05/30/18 09:26 05/30/18 09:45 05/30/18 10:25 Urine Collection Type Unknown Urine Color Juliette Urine Clarity Clear Urine pH 6.5 Urine Specific [place] >=1.030 Urine Protein 30 mg/dL (NEG-TRACE) Urine Glucose (UA) Negative mg/dL (NEG) Urine Ketones (Stick) 40 mg/dL (NEG) Urine Blood Small (NEG) Urine Nitrite Negative (NEG) Urine Bilirubin Small (NEG) Urine Urobilinogen Dipstick 1.0 mg/dL (0.2 mg/dL) Urine Leukocyte Esterase Negative (NEG) Urine RBC 6-10 /HPF (0-2) Urine WBC 0 /HPF (0-4) Urine Squamous Epithelial Cells Few /LPF Urine Bacteria 0 /HPF (0-FEW) Urine Mucus Marked /LPF Bedside Urine HCG, Qualitative Hcg negative (Negative) White Blood Count 19.0 x10^3/uL (4.0-11.0) Red Blood Count 4.78 x10^6/uL (3.50-5.40) Hemoglobin 14.1 g/dL (12.0-15.5) Hematocrit 41.1 % (36.0-47.0) Mean Corpuscular Volume 86 fL (79-100) Mean Corpuscular Hemoglobin 30 pg (25-35) Mean Corpuscular Hemoglobin Concent 34 g/dL (31-37) Red Cell Distribution Width 13.7 % (11.5-14.5) Platelet Count 361 x10^3/uL (140-400) Neutrophils (%) (Auto) 82 % (31-73) Lymphocytes (%) (Auto) 11 % (24-48) Monocytes (%) (Auto) 7 % (0-9) Eosinophils (%) (Auto) 0 % (0-3) Basophils (%) (Auto) 1 % (0-3) Neutrophils # (Auto) 15.5 x10^3uL (1.8-7.7) Lymphocytes # (Auto) 2.2 x10^3/uL (1.0-4.8) Monocytes # (Auto) 1.2 x10^3/uL (0.0-1.1) Eosinophils # (Auto) 0.0 x10^3/uL (0.0-0.7) Basophils # (Auto) 0.1 x10^3/uL (0.0-0.2) Segmented Neutrophils % 79 % (35-66) Band Neutrophils % 3 % (0-9) Lymphocytes % 16 % (24-48) Monocytes % 1 % (0-10) Basophils % 1 % (0-3) Platelet Estimate Adequate (ADEQUATE) Sodium Level 140 mmol/L (136-145) Potassium Level 3.5 mmol/L (3.5-5.1) Chloride Level 103 mmol/L (98-107) Carbon Dioxide Level 27 mmol/L (21-32) Anion Gap 10 (6-14) Blood Urea Nitrogen 7 mg/dL (7-20) Creatinine 0.6 mg/dL (0.6-1.0) Estimated GFR (Cockcroft-Gault) 134.0 BUN/Creatinine Ratio 12 (6-20) Glucose Level 132 mg/dL (70-99) Calcium Level 8.4 mg/dL (8.5-10.1) Total Bilirubin 0.7 mg/dL (0.2-1.0) Aspartate Amino Transf (AST/SGOT) 12 U/L (15-37) Alanine Aminotransferase (ALT/SGPT) 24 U/L (14-59) Alkaline Phosphatase 90 U/L (46-116) Total Protein 7.7 g/dL (6.4-8.2) Albumin 3.4 g/dL (3.4-5.0) Albumin/Globulin Ratio 0.8 (1.0-1.7) Lactic Acid Level 0.6 mmol/L (0.4-2.0) Assessment/Plan Assessment/Plan abdominal pain CT findings with small bowel and sigmoid thickening, inflammatory stranding with fluid collection, concern for abscess--suspect diverticular in nature IV abx, bowel rest, will consult IR for possible drainage of abscess reviewed with Dr Read, will notify Dr Prieto in AM GERALDO READ MD 05/30/18 2141: CONSULT Assessment/Plan Assessment/Plan Agree with above, will notify Dr Prieto of patient in AM (he has treated patient before for similar problem) LILA HOLLEY APRN May 30, 2018 13:53 GERALDO READ MD May 30, 2018 21:41
[2018-05-30] MEDS: IV NORMAL SALINE 1000ML BAG 1,000 ML IV SCH ×2 (14:49→21:10)
[2018-05-30] MEDS: fentaNYL PF VIAL 100 MCG/2 ML VIAL IV PRN ×3 (14:50→21:41)
[2018-05-30 15:00] VITALS: BP 104/63
--- NOTE | 2018-05-30 15:24 | PDOC1 ---
History and Physical Date of Admission Date of Admission DATE: 05/30/18 TIME: 15:21 Identification/Chief Complaint Chief Complaint abd pain Source Source: Chart review, Patient History of Present Illness History of Present Illness Cnythia is a 38 year old female who presents with worsening abdominal pain x 2 days. Acute pain this AM, with fever, Pain 9/10, diffusely, now down to 7/10 after given pain meds. The patient has history of bowel obstruction with surgical intervention last year, and has a 5 inch scar on her lower abdomen. . She states that this is similar pain. She states that the pain is generalized but she does have increased pain in the left lower quadrant. small stool this AM, normal Past Medical History Cardiovascular: No pertinent hx Pulmonary: No pertinent hx GI: No pertinent hx Heme/Onc: No pertinent hx Hepatobiliary: No pertinent hx Psych: No pertinent hx Rheumatologic: No pertinent hx Infectious disease: No pertinent hx Renal/: No pertinent hx Endocrine: No pertinent hx Past Surgical History Past Surgical History: Other (xlap, washout) Family History Family History: Hypertension Social History Smoke: No ALCOHOL: none Drugs: None Current Problem List Problem List Problems Medical Problems: (1) Abscess between intestinal loops Status: Acute (2) Enteritis Status: Acute Current Medications Current Medications Current Medications Fentanyl Citrate (Fentanyl 2ml Vial) 50 mcg 1X ONCE IV Last administered on at 10:00; Start 05/30/18 at 09:45; Stop 05/30/18 at 09:46; Status DC Sodium Chloride 1,000 ml @ 1,000 mls/hr 1X ONCE IV Last administered on 05/30at 10:00; Start 05/30/18 at 09:45; Stop 05/30/18 at 10:44; Status DC Iohexol (Omnipaque 240 Mg/ml) 30 ml 1X ONCE PO Last administered on at 11:00; Start 05/30/18 at 10:30; Stop 05/30/18 at 10:31; Status DC Iohexol (Omnipaque 300 Mg/ml) 75 ml 1X ONCE IV Last administered on at 11:00; Start 05/30/18 at 10:30; Stop 05/30/18 at 10:31; Status DC Info (CONTRAST GIVEN -- Rx MONITORING) 1 each PRN DAILY PRN MC SEE COMMENTS; Start 05/30/18 at 10:30; Stop 06/01/18 at 10:29 Sodium Chloride 1,000 ml @ 1,000 mls/hr 1X ONCE IV Last administered on 05/30at 12:15; Start 05/30/18 at 12:15; Stop 05/30/18 at 13:16; Status DC Piperacillin Sod/ Tazobactam Sod (Zosyn Per Pharmacy) 1 each PRN DAILY PRN MC SEE COMMENTS; Start 05/30/18 at 12:30; Stop 05/30/18 at 13:02; Status DC Ondansetron HCl (Zofran) 4 mg PRN Q8HRS PRN IV NAUSEA/VOMITING; Start at 12:30; Stop 05/31/18 at 12:29 Fentanyl Citrate (Fentanyl 2ml Vial) 50 mcg PRN Q1HR PRN IV PAIN Last administered on 05/30/18at 14:50; Start 05/30/18 at 12:30; Stop 05/31/18 at 12 :29 Sodium Chloride 1,000 ml @ 125 mls/hr Q8H IV Last administered on 05/30/18at 14:49; Start 05/30/18 at 12:28; Stop 05/31/18 at 12:27 Piperacillin Sod/ Tazobactam Sod 3.375 gm/Sodium Chloride 50 ml @ 100 mls/hr 1X ONCE IV Last administered on 05/30/18at 12:45; Start 05/30/18 at 12:45; Stop 05/30/18 at 13:16; Status DC Piperacillin Sod/ Tazobactam Sod (Zosyn Per Pharmacy) 1 each PRN DAILY PRN MC SEE COMMENTS; Start 05/30/18 at 13:15 Piperacillin Sod/ Tazobactam Sod 3.375 gm/Sodium Chloride 50 ml @ 100 mls/hr Q6HRS IV ; Start 05/30/18 at 18:00 Active Scripts Active Augmentin 875-125 Tablet (Amoxicillin/Potassium Clav) 1 Each Tablet 1 Tab PO BID Famotidine 20 Mg Tablet 20 Mg PO QHS Colace (Docusate Sodium) 100 Mg Capsule 100 Mg PO PRN DAILY PRN Reported No Known Medications Prior To Admisstion (Info) Each 1 Each Allergies Allergies: Coded Allergies: No Known Drug Allergies (Unverified , 05/21/17) ROS General: YES: Chills, Fatigue, Appetite; No: Night Sweats, Malaise, Other PSYCHOLOGICAL ROS: YES: Sleep disturbances; No: Anxiety, Behavioral Disorder, Concentration difficultie, Decreased libido , Depression, Disorientation, Hallucinations, Hostility, Irritablity, Memory difficulties, Mood Swings, Obsessive thoughts, Physical abuse, Sexual abuse, Suicidal ideation, Other Eyes: No Blurry vision, No Decreased vision, No Double vision, No Dry eyes, No Excessive tearing, No Eye Pain, No Itchy Eyes, No Loss of vision, No Photophobia , No Scotomata, No Uses contacts, No Uses glasses, No Other HEENT: YES: Heacaches; No: Visual Changes, Hearing change, Nasal congestion, Nasal discharge, Oral lesions, Sinus pain, Sore Throat, Epistaxis, Sneezing, Snoring, Tinnitus, Vertigo, Vocal changes, Other Respiratory: No: Cough, Hemoptysis, Orthopnea, Pleuritic Pain, Shortness of breath, SOB with excertion, Sputum Changes, Stridor, Tachypnea, Wheezing, Other Cardiovascular: No Chest Pain, No Palpitations, No Orthopnea, No Paroxysmal Noc. Dyspnea, No Edema, No Lt Headedness, No Other Gastrointestinal: Yes Nausea, Yes Abdominal Pain; No Vomiting, No Constipation, No Melena, No Hematochezia, No Other Genitourinary: No Dysuria, No Frequency, No Incontinence, No Hematuria, No Retention, No Discharge, No Urgency, No Pain, No Flank Pain, No Other, No , No , No , No , No , No , No Musculoskeletal: No Gait Disturbance, No Joint Pain, No Joint Swelling, No Muscle Pain, No Muscular Weakness, No Pain In:, No Swelling In:, No Other Neurological: No Behavorial Changes, No Bowel/Bladder ControlChng, No Confusion , No Dizziness, No Gait Disturbance, No Headaches, No Impaired Coord/balance, No Memory Loss, No Numbness/Tingling, No Seizures, No Speech Problems, No Tremors, No Visual Changes, No Weakness, No Other Skin: No Dry Skin, No Eczema, No Hair Changes, No Lumps, No Mole Changes, No Mottling, No Nail Changes, No Pruritus, No Rash, No Skin Lesion Changes, No Other, No Acne Physical Exam General: Alert, Cooperative, mild distress HEENT: Atraumatic, PERRLA, Mucous membr. moist/pink Lungs: Clear to auscultation Heart: RRR, no gallops, no murmurs Abdomen: Soft, Other (tender, guarding, diffuse pain) Extremities: No clubbing, No cyanosis, Normal pulses Skin: No significant lesion Neuro: Normal speech, Normal tone, Sensation intact, Cranial nerves 3-12 NL Psych/Mental Status: Mental status NL, Mood NL Vitals Vitals Vital Signs Date Time Temp Pulse Resp B/P (MAP) Pulse Ox O2 Delivery O2 Flow Rate FiO2 05/30/18 14:50 Room Air 05/30/18 13:38 100.5 118 18 103/73 (83) 97 100.5 Labs Labs Laboratory Tests Test 05/30/18 09:20 05/30/18 09:26 05/30/18 09:45 05/30/18 10:25 Urine Collection Type Unknown Urine Color Juliette Urine Clarity Clear Urine pH 6.5 Urine Specific [place] >=1.030 Urine Protein 30 mg/dL (NEG-TRACE) Urine Glucose (UA) Negative mg/dL (NEG) Urine Ketones (Stick) 40 mg/dL (NEG) Urine Blood Small (NEG) Urine Nitrite Negative (NEG) Urine Bilirubin Small (NEG) Urine Urobilinogen Dipstick 1.0 mg/dL (0.2 mg/dL) Urine Leukocyte Esterase Negative (NEG) Urine RBC 6-10 /HPF (0-2) Urine WBC 0 /HPF (0-4) Urine Squamous Epithelial Cells Few /LPF Urine Bacteria 0 /HPF (0-FEW) Urine Mucus Marked /LPF Bedside Urine HCG, Qualitative Hcg negative (Negative) White Blood Count 19.0 x10^3/uL (4.0-11.0) Red Blood Count 4.78 x10^6/uL (3.50-5.40) Hemoglobin 14.1 g/dL (12.0-15.5) Hematocrit 41.1 % (36.0-47.0) Mean Corpuscular Volume 86 fL (79-100) Mean Corpuscular Hemoglobin 30 pg (25-35) Mean Corpuscular Hemoglobin Concent 34 g/dL (31-37) Red Cell Distribution Width 13.7 % (11.5-14.5) Platelet Count 361 x10^3/uL (140-400) Neutrophils (%) (Auto) 82 % (31-73) Lymphocytes (%) (Auto) 11 % (24-48) Monocytes (%) (Auto) 7 % (0-9) Eosinophils (%) (Auto) 0 % (0-3) Basophils (%) (Auto) 1 % (0-3) Neutrophils # (Auto) 15.5 x10^3uL (1.8-7.7) Lymphocytes # (Auto) 2.2 x10^3/uL (1.0-4.8) Monocytes # (Auto) 1.2 x10^3/uL (0.0-1.1) Eosinophils # (Auto) 0.0 x10^3/uL (0.0-0.7) Basophils # (Auto) 0.1 x10^3/uL (0.0-0.2) Segmented Neutrophils % 79 % (35-66) Band Neutrophils % 3 % (0-9) Lymphocytes % 16 % (24-48) Monocytes % 1 % (0-10) Basophils % 1 % (0-3) Platelet Estimate Adequate (ADEQUATE) Sodium Level 140 mmol/L (136-145) Potassium Level 3.5 mmol/L (3.5-5.1) Chloride Level 103 mmol/L (98-107) Carbon Dioxide Level 27 mmol/L (21-32) Anion Gap 10 (6-14) Blood Urea Nitrogen 7 mg/dL (7-20) Creatinine 0.6 mg/dL (0.6-1.0) Estimated GFR (Cockcroft-Gault) 134.0 BUN/Creatinine Ratio 12 (6-20) Glucose Level 132 mg/dL (70-99) Calcium Level 8.4 mg/dL (8.5-10.1) Total Bilirubin 0.7 mg/dL (0.2-1.0) Aspartate Amino Transf (AST/SGOT) 12 U/L (15-37) Alanine Aminotransferase (ALT/SGPT) 24 U/L (14-59) Alkaline Phosphatase 90 U/L (46-116) Total Protein 7.7 g/dL (6.4-8.2) Albumin 3.4 g/dL (3.4-5.0) Albumin/Globulin Ratio 0.8 (1.0-1.7) Lactic Acid Level 0.6 mmol/L (0.4-2.0) Laboratory Tests Test 05/30/18 09:20 05/30/18 09:26 05/30/18 09:45 05/30/18 10:25 Urine Collection Type Unknown Urine Color Juliette Urine Clarity Clear Urine pH 6.5 Urine Specific [place] >=1.030 Urine Protein 30 mg/dL (NEG-TRACE) Urine Glucose (UA) Negative mg/dL (NEG) Urine Ketones (Stick) 40 mg/dL (NEG) Urine Blood Small (NEG) Urine Nitrite Negative (NEG) Urine Bilirubin Small (NEG) Urine Urobilinogen Dipstick 1.0 mg/dL (0.2 mg/dL) Urine Leukocyte Esterase Negative (NEG) Urine RBC 6-10 /HPF (0-2) Urine WBC 0 /HPF (0-4) Urine Squamous Epithelial Cells Few /LPF Urine Bacteria 0 /HPF (0-FEW) Urine Mucus Marked /LPF Bedside Urine HCG, Qualitative Hcg negative (Negative) White Blood Count 19.0 x10^3/uL (4.0-11.0) Red Blood Count 4.78 x10^6/uL (3.50-5.40) Hemoglobin 14.1 g/dL (12.0-15.5) Hematocrit 41.1 % (36.0-47.0) Mean Corpuscular Volume 86 fL (79-100) Mean Corpuscular Hemoglobin 30 pg (25-35) Mean Corpuscular Hemoglobin Concent 34 g/dL (31-37) Red Cell Distribution Width 13.7 % (11.5-14.5) Platelet Count 361 x10^3/uL (140-400) Neutrophils (%) (Auto) 82 % (31-73) Lymphocytes (%) (Auto) 11 % (24-48) Monocytes (%) (Auto) 7 % (0-9) Eosinophils (%) (Auto) 0 % (0-3) Basophils (%) (Auto) 1 % (0-3) Neutrophils # (Auto) 15.5 x10^3uL (1.8-7.7) Lymphocytes # (Auto) 2.2 x10^3/uL (1.0-4.8) Monocytes # (Auto) 1.2 x10^3/uL (0.0-1.1) Eosinophils # (Auto) 0.0 x10^3/uL (0.0-0.7) Basophils # (Auto) 0.1 x10^3/uL (0.0-0.2) Segmented Neutrophils % 79 % (35-66) Band Neutrophils % 3 % (0-9) Lymphocytes % 16 % (24-48) Monocytes % 1 % (0-10) Basophils % 1 % (0-3) Platelet Estimate Adequate (ADEQUATE) Sodium Level 140 mmol/L (136-145) Potassium Level 3.5 mmol/L (3.5-5.1) Chloride Level 103 mmol/L (98-107) Carbon Dioxide Level 27 mmol/L (21-32) Anion Gap 10 (6-14) Blood Urea Nitrogen 7 mg/dL (7-20) Creatinine 0.6 mg/dL (0.6-1.0) Estimated GFR (Cockcroft-Gault) 134.0 BUN/Creatinine Ratio 12 (6-20) Glucose Level 132 mg/dL (70-99) Calcium Level 8.4 mg/dL (8.5-10.1) Total Bilirubin 0.7 mg/dL (0.2-1.0) Aspartate Amino Transf (AST/SGOT) 12 U/L (15-37) Alanine Aminotransferase (ALT/SGPT) 24 U/L (14-59) Alkaline Phosphatase 90 U/L (46-116) Total Protein 7.7 g/dL (6.4-8.2) Albumin 3.4 g/dL (3.4-5.0) Albumin/Globulin Ratio 0.8 (1.0-1.7) Lactic Acid Level 0.6 mmol/L (0.4-2.0) VTE Prophylaxis Ordered VTE Prophylaxis Devices: Yes VTE Pharmacological Prophylaxi: Yes Assessment/Plan Assessment/Plan Acute abd pain sepsis, leukocytosis and fever diverticulitis admit PARVIZ HORTA MD May 30, 2018 15:24
[2018-05-30] MEDS: PIPERACILLIN/TAZOBACTAM 3.375 GM in IV NORMAL SALINE 50ML 50 ML IV SCH ×2 (17:54→23:39)
[2018-05-30 19:00] VITALS: BP 96/92
[2018-05-30 23:00] VITALS: BP 100/69
[2018-05-31] VITALS (17 sets, daily range): BP systolic 11–131; BP diastolic 61–87
[2018-05-31] MEDS: IV NORMAL SALINE 1000ML BAG 1,000 ML IV SCH (05:41)
[2018-05-31] MEDS: PIPERACILLIN/TAZOBACTAM 3.375 GM in IV NORMAL SALINE 50ML 50 ML IV SCH ×3 (05:42→18:20)
--- NOTE | 2018-05-31 09:39 | PDOC ---
LILA HOLLEY ACCOUNT RESOLUTION ANALYST 05/31/18 0939: SURGICAL PROGRESS NOTE Subjective used the physician assistant surgery phone feels a little better no n/v Vital Signs Vital Signs Date Time Temp Pulse Resp B/P (MAP) Pulse Ox O2 Delivery O2 Flow Rate FiO2 05/31/18 08:30 Room Air 05/31/18 07:00 98.5 113 16 115/79 (91) 95 98.5 I&O Intake and Output 05/31/18 07:00 Intake Total 1810 ml Balance 1810 ml Intake Oral 760 ml IV Total 1050 ml # Voids 6 General: Alert, Oriented X3, Cooperative, No acute distress Abdomen: Soft, Other (mild TTP diffusely ) Labs Laboratory Tests Test 05/30/18 09:20 05/30/18 09:26 05/30/18 09:45 05/30/18 10:25 Urine Collection Type Unknown Urine Color Juliette Urine Clarity Clear Urine pH 6.5 Urine Specific [place] >=1.030 Urine Protein 30 mg/dL (NEG-TRACE) Urine Glucose (UA) Negative mg/dL (NEG) Urine Ketones (Stick) 40 mg/dL (NEG) Urine Blood Small (NEG) Urine Nitrite Negative (NEG) Urine Bilirubin Small (NEG) Urine Urobilinogen Dipstick 1.0 mg/dL (0.2 mg/dL) Urine Leukocyte Esterase Negative (NEG) Urine RBC 6-10 /HPF (0-2) Urine WBC 0 /HPF (0-4) Urine Squamous Epithelial Cells Few /LPF Urine Bacteria 0 /HPF (0-FEW) Urine Mucus Marked /LPF Bedside Urine HCG, Qualitative Hcg negative (Negative) White Blood Count 19.0 x10^3/uL (4.0-11.0) Red Blood Count 4.78 x10^6/uL (3.50-5.40) Hemoglobin 14.1 g/dL (12.0-15.5) Hematocrit 41.1 % (36.0-47.0) Mean Corpuscular Volume 86 fL (79-100) Mean Corpuscular Hemoglobin 30 pg (25-35) Mean Corpuscular Hemoglobin Concent 34 g/dL (31-37) Red Cell Distribution Width 13.7 % (11.5-14.5) Platelet Count 361 x10^3/uL (140-400) Neutrophils (%) (Auto) 82 % (31-73) Lymphocytes (%) (Auto) 11 % (24-48) Monocytes (%) (Auto) 7 % (0-9) Eosinophils (%) (Auto) 0 % (0-3) Basophils (%) (Auto) 1 % (0-3) Neutrophils # (Auto) 15.5 x10^3uL (1.8-7.7) Lymphocytes # (Auto) 2.2 x10^3/uL (1.0-4.8) Monocytes # (Auto) 1.2 x10^3/uL (0.0-1.1) Eosinophils # (Auto) 0.0 x10^3/uL (0.0-0.7) Basophils # (Auto) 0.1 x10^3/uL (0.0-0.2) Segmented Neutrophils % 79 % (35-66) Band Neutrophils % 3 % (0-9) Lymphocytes % 16 % (24-48) Monocytes % 1 % (0-10) Basophils % 1 % (0-3) Platelet Estimate Adequate (ADEQUATE) Sodium Level 140 mmol/L (136-145) Potassium Level 3.5 mmol/L (3.5-5.1) Chloride Level 103 mmol/L (98-107) Carbon Dioxide Level 27 mmol/L (21-32) Anion Gap 10 (6-14) Blood Urea Nitrogen 7 mg/dL (7-20) Creatinine 0.6 mg/dL (0.6-1.0) Estimated GFR (Cockcroft-Gault) 134.0 BUN/Creatinine Ratio 12 (6-20) Glucose Level 132 mg/dL (70-99) Calcium Level 8.4 mg/dL (8.5-10.1) Total Bilirubin 0.7 mg/dL (0.2-1.0) Aspartate Amino Transf (AST/SGOT) 12 U/L (15-37) Alanine Aminotransferase (ALT/SGPT) 24 U/L (14-59) Alkaline Phosphatase 90 U/L (46-116) Total Protein 7.7 g/dL (6.4-8.2) Albumin 3.4 g/dL (3.4-5.0) Albumin/Globulin Ratio 0.8 (1.0-1.7) Lactic Acid Level 0.6 mmol/L (0.4-2.0) Laboratory Tests Test 05/30/18 09:45 05/30/18 10:25 White Blood Count 19.0 x10^3/uL (4.0-11.0) Red Blood Count 4.78 x10^6/uL (3.50-5.40) Hemoglobin 14.1 g/dL (12.0-15.5) Hematocrit 41.1 % (36.0-47.0) Mean Corpuscular Volume 86 fL (79-100) Mean Corpuscular Hemoglobin 30 pg (25-35) Mean Corpuscular Hemoglobin Concent 34 g/dL (31-37) Red Cell Distribution Width 13.7 % (11.5-14.5) Platelet Count 361 x10^3/uL (140-400) Neutrophils (%) (Auto) 82 % (31-73) Lymphocytes (%) (Auto) 11 % (24-48) Monocytes (%) (Auto) 7 % (0-9) Eosinophils (%) (Auto) 0 % (0-3) Basophils (%) (Auto) 1 % (0-3) Neutrophils # (Auto) 15.5 x10^3uL (1.8-7.7) Lymphocytes # (Auto) 2.2 x10^3/uL (1.0-4.8) Monocytes # (Auto) 1.2 x10^3/uL (0.0-1.1) Eosinophils # (Auto) 0.0 x10^3/uL (0.0-0.7) Basophils # (Auto) 0.1 x10^3/uL (0.0-0.2) Segmented Neutrophils % 79 % (35-66) Band Neutrophils % 3 % (0-9) Lymphocytes % 16 % (24-48) Monocytes % 1 % (0-10) Basophils % 1 % (0-3) Platelet Estimate Adequate (ADEQUATE) Sodium Level 140 mmol/L (136-145) Potassium Level 3.5 mmol/L (3.5-5.1) Chloride Level 103 mmol/L (98-107) Carbon Dioxide Level 27 mmol/L (21-32) Anion Gap 10 (6-14) Blood Urea Nitrogen 7 mg/dL (7-20) Creatinine 0.6 mg/dL (0.6-1.0) Estimated GFR (Cockcroft-Gault) 134.0 BUN/Creatinine Ratio 12 (6-20) Glucose Level 132 mg/dL (70-99) Calcium Level 8.4 mg/dL (8.5-10.1) Total Bilirubin 0.7 mg/dL (0.2-1.0) Aspartate Amino Transf (AST/SGOT) 12 U/L (15-37) Alanine Aminotransferase (ALT/SGPT) 24 U/L (14-59) Alkaline Phosphatase 90 U/L (46-116) Total Protein 7.7 g/dL (6.4-8.2) Albumin 3.4 g/dL (3.4-5.0) Albumin/Globulin Ratio 0.8 (1.0-1.7) Lactic Acid Level 0.6 mmol/L (0.4-2.0) Problem List Problems Medical Problems: (1) Abscess between intestinal loops Status: Acute (2) Enteritis Status: Acute Assessment/Plan diverticular abscess continue abx, IR drainage today LO CURRIE MD 05/31/18 1001: SURGICAL PROGRESS NOTE Assessment/Plan Agree with Latonia assessment and plan we'll continue to follow and monitor LILA HOLLEY APRN May 31, 2018 09:39 LO CURRIE MD May 31, 2018 10:01
[2018-05-31] MEDS ORDERED: LIDOCAINE WITH 8.4% SOD BICARB 3 ML DISP.SYRIN. ONE ×2 (12:44→13:19)
[2018-05-31] MEDS ORDERED: fentaNYL PF VIAL 100 MCG/2 ML VIAL ONE ×2 (12:52→13:18)
[2018-05-31] MEDS ORDERED: MIDAZOLAM HCL/PF 2 MG/2 ML VIAL. ONE ×2 (12:52→13:17)
[2018-05-31 13:23] LABS: PROTHROMBIN TIME PATIENT 14.8 SEC (11.7-14.0)
[2018-05-31] MEDS ORDERED: LIDOCAINE WITH 8.4% SOD BICARB 3 ML DISP.SYRIN. IJ ONE (13:30)
[2018-05-31] MEDS ORDERED: MIDAZOLAM HCL/PF 2 MG/2 ML VIAL. IV ONE (13:30)
[2018-05-31] MEDS ORDERED: fentaNYL PF VIAL 100 MCG/2 ML VIAL IV ONE (13:30)
--- NOTE | 2018-05-31 13:36 | PDOC ---
BRIEF OPERATIVE NOTE Pre-Op Diagnosis abdominal abscess Post-Op Diagnosis same Procedure Performed CT abdominal drain Surgeon Franki Anesthesia Type: Conscious Sedation Specimens Obtained 6cc fazal pus Findings Abdominal abscess, 10F drain Complications No immediate KRIS ORTIZ MD May 31, 2018 13:36
--- NOTE | 2018-05-31 13:42 | RAD ---
Procedure: CT-guided abdominal drain placement Clinical Indication: 38-year-old female with abdominal abscess Sedation: Conscious sedation was administered with a total intraprocedural [id number] time of 32 minutes. The patient was monitored by a qualified independent observer throughout the time of sedation. Please refer to the medical record for exact doses of medications utilized to achieve moderate sedation. Antibiotics: None Sterility: The procedure was performed in its entirety using appropriate elements of sterile technique. Consent: The procedure was explained in its entirety to the patient or the patients designated residential sales representative by a member of the treatment team, including a discussion of the risks, benefits and commonly accepted alternatives to the procedure, as well as the expected consequences of no therapy whatsoever. Discussion of the risks included, but was not limited to, those that are most frequent and those that are rare but possibly severe or life-threatening, as well as the possibility of unforeseen complications. Technique and Findings: Following informed consent, the patient was prepped and draped in usual sterile fashion. Preliminary CT scan of the area of interest was performed. 1% lidocaine was used to achieve local anesthesia over the area of images. A small dermatotomy was made. Under periodic CT surveillance, a 19-gauge needle was advanced into the left lower quadrant abscess and fazal pus was aspirated. The needle was then exchanged over wire for 10 [place] pigtail drainage catheter. This catheter was sutured to the skin and placed to bulb suction. A 6 cc specimen was sent for microbiologic analysis. Complications: No immediate Impression: 1. CT-guided pelvic drain placement as described PQRS Compliance Statement: One or more of the following individualized dose reduction techniques were utilized for this examination: 1. Automated exposure control 2. Adjustment of the mA and/or kV according to patient size 3. Use of iterative reconstruction technique
--- NOTE | 2018-05-31 15:21 | PDOC ---
PROGRESS NOTES Chief Complaint Chief Complaint Acute abd pain sepsis, leukocytosis and fever diverticulitis w. abcess, drain placed by IR today History of Present Illness History of Present Illness pain better drain placed, cont IV abx Vitals Vitals Vital Signs Date Time Temp Pulse Resp B/P (MAP) Pulse Ox O2 Delivery O2 Flow Rate FiO2 05/31/18 14:47 Room Air 05/31/18 14:30 105 109/77 (88) 05/31/18 13:35 23 97 05/31/18 13:32 2.0 05/31/18 11:00 99.4 99.4 Physical Exam General: Alert, Oriented X3, Cooperative, No acute distress Heart: Regular rate, Normal S1, Normal S2, No murmurs Lungs: Clear Abdomen: Soft, Other (mild TTP diffusely ) Extremities: No clubbing, No cyanosis, Normal pulses Skin: No significant lesion Labs LABS Laboratory Tests Test 05/31/18 13:00 Prothrombin Time 14.8 SEC (11.7-14.0) Prothromb Time International Ratio 1.2 (0.8-1.1) Activated Partial Thromboplast Time 33 SEC (24-38) Assessment and Plan Assessmemt and Plan Problems Medical Problems: (1) Abscess between intestinal loops Status: Acute (2) Enteritis Status: Acute Comment Review of Relevant I have reviewed the following items enoc (where applicable) has been applied. Labs Laboratory Tests Test 05/30/18 09:20 05/30/18 09:26 05/30/18 09:45 05/30/18 10:25 Urine Collection Type Unknown Urine Color Juliette Urine Clarity Clear Urine pH 6.5 Urine Specific [place] >=1.030 Urine Protein 30 mg/dL (NEG-TRACE) Urine Glucose (UA) Negative mg/dL (NEG) Urine Ketones (Stick) 40 mg/dL (NEG) Urine Blood Small (NEG) Urine Nitrite Negative (NEG) Urine Bilirubin Small (NEG) Urine Urobilinogen Dipstick 1.0 mg/dL (0.2 mg/dL) Urine Leukocyte Esterase Negative (NEG) Urine RBC 6-10 /HPF (0-2) Urine WBC 0 /HPF (0-4) Urine Squamous Epithelial Cells Few /LPF Urine Bacteria 0 /HPF (0-FEW) Urine Mucus Marked /LPF Bedside Urine HCG, Qualitative Hcg negative (Negative) White Blood Count 19.0 x10^3/uL (4.0-11.0) Red Blood Count 4.78 x10^6/uL (3.50-5.40) Hemoglobin 14.1 g/dL (12.0-15.5) Hematocrit 41.1 % (36.0-47.0) Mean Corpuscular Volume 86 fL (79-100) Mean Corpuscular Hemoglobin 30 pg (25-35) Mean Corpuscular Hemoglobin Concent 34 g/dL (31-37) Red Cell Distribution Width 13.7 % (11.5-14.5) Platelet Count 361 x10^3/uL (140-400) Neutrophils (%) (Auto) 82 % (31-73) Lymphocytes (%) (Auto) 11 % (24-48) Monocytes (%) (Auto) 7 % (0-9) Eosinophils (%) (Auto) 0 % (0-3) Basophils (%) (Auto) 1 % (0-3) Neutrophils # (Auto) 15.5 x10^3uL (1.8-7.7) Lymphocytes # (Auto) 2.2 x10^3/uL (1.0-4.8) Monocytes # (Auto) 1.2 x10^3/uL (0.0-1.1) Eosinophils # (Auto) 0.0 x10^3/uL (0.0-0.7) Basophils # (Auto) 0.1 x10^3/uL (0.0-0.2) Segmented Neutrophils % 79 % (35-66) Band Neutrophils % 3 % (0-9) Lymphocytes % 16 % (24-48) Monocytes % 1 % (0-10) Basophils % 1 % (0-3) Platelet Estimate Adequate (ADEQUATE) Sodium Level 140 mmol/L (136-145) Potassium Level 3.5 mmol/L (3.5-5.1) Chloride Level 103 mmol/L (98-107) Carbon Dioxide Level 27 mmol/L (21-32) Anion Gap 10 (6-14) Blood Urea Nitrogen 7 mg/dL (7-20) Creatinine 0.6 mg/dL (0.6-1.0) Estimated GFR (Cockcroft-Gault) 134.0 BUN/Creatinine Ratio 12 (6-20) Glucose Level 132 mg/dL (70-99) Calcium Level 8.4 mg/dL (8.5-10.1) Total Bilirubin 0.7 mg/dL (0.2-1.0) Aspartate Amino Transf (AST/SGOT) 12 U/L (15-37) Alanine Aminotransferase (ALT/SGPT) 24 U/L (14-59) Alkaline Phosphatase 90 U/L (46-116) Total Protein 7.7 g/dL (6.4-8.2) Albumin 3.4 g/dL (3.4-5.0) Albumin/Globulin Ratio 0.8 (1.0-1.7) Lactic Acid Level 0.6 mmol/L (0.4-2.0) Test 05/31/18 13:00 Prothrombin Time 14.8 SEC (11.7-14.0) Prothromb Time International Ratio 1.2 (0.8-1.1) Activated Partial Thromboplast Time 33 SEC (24-38) Laboratory Tests Test 05/31/18 13:00 Prothrombin Time 14.8 SEC (11.7-14.0) Prothromb Time International Ratio 1.2 (0.8-1.1) Activated Partial Thromboplast Time 33 SEC (24-38) Microbiology 05/30/18 Blood Culture - Preliminary, Resulted NO GROWTH AFTER 1 DAY Medications Current Medications Fentanyl Citrate (Fentanyl 2ml Vial) 50 mcg 1X ONCE IV Last administered on at 10:00; Start 05/30/18 at 09:45; Stop 05/30/18 at 09:46; Status DC Sodium Chloride 1,000 ml @ 1,000 mls/hr 1X ONCE IV Last administered on 05/30at 10:00; Start 05/30/18 at 09:45; Stop 05/30/18 at 10:44; Status DC Iohexol (Omnipaque 240 Mg/ml) 30 ml 1X ONCE PO Last administered on at 11:00; Start 05/30/18 at 10:30; Stop 05/30/18 at 10:31; Status DC Iohexol (Omnipaque 300 Mg/ml) 75 ml 1X ONCE IV Last administered on at 11:00; Start 05/30/18 at 10:30; Stop 05/30/18 at 10:31; Status DC Info (CONTRAST GIVEN -- Rx MONITORING) 1 each PRN DAILY PRN MC SEE COMMENTS; Start 05/30/18 at 10:30; Stop 06/01/18 at 10:29 Sodium Chloride 1,000 ml @ 1,000 mls/hr 1X ONCE IV Last administered on 05/30at 12:15; Start 05/30/18 at 12:15; Stop 05/30/18 at 13:16; Status DC Piperacillin Sod/ Tazobactam Sod (Zosyn Per Pharmacy) 1 each PRN DAILY PRN MC SEE COMMENTS; Start 05/30/18 at 12:30; Stop 05/30/18 at 13:02; Status DC Ondansetron HCl (Zofran) 4 mg PRN Q8HRS PRN IV NAUSEA/VOMITING; Start at 12:30; Stop 05/31/18 at 12:29; Status DC Fentanyl Citrate (Fentanyl 2ml Vial) 50 mcg PRN Q1HR PRN IV PAIN Last administered on 05/30/18at 21:41; Start 05/30/18 at 12:30; Stop 05/31/18 at 12 :29; Status DC Sodium Chloride 1,000 ml @ 125 mls/hr Q8H IV Last administered on 05/31/18at 05:41; Start 05/30/18 at 12:28; Stop 05/31/18 at 12:27; Status DC Piperacillin Sod/ Tazobactam Sod 3.375 gm/Sodium Chloride 50 ml @ 100 mls/hr 1X ONCE IV Last administered on 05/30/18at 12:45; Start 05/30/18 at 12:45; Stop 05/30/18 at 13:16; Status DC Piperacillin Sod/ Tazobactam Sod (Zosyn Per Pharmacy) 1 each PRN DAILY PRN MC SEE COMMENTS; Start 05/30/18 at 13:15 Piperacillin Sod/ Tazobactam Sod 3.375 gm/Sodium Chloride 50 ml @ 100 mls/hr Q6HRS IV Last administered on 05/31/18at 11:32; Start 05/30/18 at 18:00 Lactobacillus Rhamnosus (Culturelle) 1 cap BID PO ; Start 05/31/18 at 21:00 Lidocaine/Sodium Bicarbonate (Buffered Lidocaine 1%) 3 ml STK-MED ONCE .ROUTE ; Start 05/31/18 at 12:44; Stop 05/31/18 at 12:45; Status DC Midazolam HCl (Versed) 2 mg STK-MED ONCE .ROUTE ; Start 05/31/18 at 12:52; Stop 05/31/18 at 12:53; Status DC Fentanyl Citrate (Fentanyl 2ml Vial) 100 mcg STK-MED ONCE .ROUTE ; Start at 12:52; Stop 05/31/18 at 12:53; Status DC Midazolam HCl (Versed) 2 mg STK-MED ONCE .ROUTE ; Start 05/31/18 at 13:17; Stop 05/31/18 at 13:18; Status DC Fentanyl Citrate (Fentanyl 2ml Vial) 100 mcg STK-MED ONCE .ROUTE ; Start at 13:18; Stop 05/31/18 at 13:19; Status DC Lidocaine/Sodium Bicarbonate (Buffered Lidocaine 1%) 3 ml STK-MED ONCE .ROUTE ; Start 05/31/18 at 13:19; Stop 05/31/18 at 13:20; Status DC Lidocaine/Sodium Bicarbonate (Buffered Lidocaine 1%) 3 ml 1X ONCE IJ Last administered on 05/31/18at 13:30; Start 05/31/18 at 13:30; Stop 05/31/18 at 13 :31; Status DC Midazolam HCl (Versed) 2 mg 1X ONCE IV Last administered on 05/31/18at 13:31; Start 05/31/18 at 13:30; Stop 05/31/18 at 13:31; Status DC Fentanyl Citrate (Fentanyl 2ml Vial) 100 mcg 1X ONCE IV Last administered on 05/31/18at 13:32; Start 05/31/18 at 13:30; Stop 05/31/18 at 13:31; Status DC Active Scripts Active Augmentin 875-125 Tablet (Amoxicillin/Potassium Clav) 1 Each Tablet 1 Tab PO BID Famotidine 20 Mg Tablet 20 Mg PO QHS Colace (Docusate Sodium) 100 Mg Capsule 100 Mg PO PRN DAILY PRN Reported No Known Medications Prior To Admisstion (Info) Each 1 Each Vitals/I & O Vital Sign - Last 24 Hours 05/30/18 05/30/18 05/30/18 05/30/18 17:54 19:00 20:36 21:41 Temp 99.4 99.4 Pulse 107 Resp 17 16 B/P (MAP) 96/92 (93) Pulse Ox 96 O2 Delivery Room Air Room Air Room Air Room Air 05/30/18 05/30/18 05/31/18 05/31/18 22:26 23:00 03:00 07:00 Temp 98.3 98.1 98.5 98.3 98.1 98.5 Pulse 117 105 113 Resp 17 17 16 B/P (MAP) 100/69 (79) 110/78 (89) 115/79 (91) Pulse Ox 96 95 94 95 O2 Delivery Room Air Room Air Room Air Room Air 05/31/18 05/31/18 05/31/18 05/31/18 08:30 11:00 13:01 13:10 Temp 99.4 99.4 Pulse 110 Resp 18 18 20 B/P (MAP) 123/79 (94) Pulse Ox 100 99 98 O2 Delivery Room Air Room Air Nasal Cannula Nasal Cannula O2 Flow Rate 2.0 2.0 05/31/18 05/31/18 05/31/18 05/31/18 13:14 13:20 13:25 13:30 Pulse 92 108 110 112 Resp 18 22 23 22 Pulse Ox 98 O2 Delivery Nasal Cannula Nasal Cannula Nasal Cannula Nasal Cannula O2 Flow Rate 2.0 2.0 2.0 2.0 05/31/18 05/31/18 05/31/18 05/31/18 13:32 13:35 13:45 14:00 Pulse 109 99 Resp 18 23 B/P (MAP) 107/74 (85) 94/64 (74) Pulse Ox 98 97 O2 Delivery Nasal Cannula Room Air O2 Flow Rate 2.0 05/31/18 05/31/18 05/31/18 14:15 14:30 14:47 Pulse 116 105 B/P (MAP) 107/73 (84) 109/77 (88) O2 Delivery Room Air Intake and Output 05/30/18 05/30/18 05/31/18 15:00 23:00 07:00 Intake Total 1000 ml 420 ml 390 ml Balance 1000 ml 420 ml 390 ml PARVIZ HORTA MD May 31, 2018 15:21
[2018-05-31] MEDS: HYDROcodone/APAP 5/325MG 1 TAB TABLET PO PRN (19:17)
[2018-05-31] MEDS: LACTOBACILLUS RHAMNOSUS GG 1 CAPSULE. PO SCH (20:49)
[2018-06-01] MEDS: PIPERACILLIN/TAZOBACTAM 3.375 GM in IV NORMAL SALINE 50ML 50 ML IV SCH ×4 (00:34→17:13)
[2018-06-01 03:00] VITALS: BP 125/76
[2018-06-01 07:00] VITALS: BP 117/76
--- NOTE | 2018-06-01 08:20 | PDOC ---
SURGICAL PROGRESS NOTE Subjective Patient doing well some pain at drain site and feels gassy Vital Signs Vital Signs Date Time Temp Pulse Resp B/P (MAP) Pulse Ox O2 Delivery O2 Flow Rate FiO2 06/01/18 03:00 97.1 86 18 125/76 (92) 97 Room Air 97.1 05/31/18 13:32 2.0 I&O Intake and Output 06/01/18 07:00 Intake Total 850 ml Output Total 15 ml Balance 835 ml Intake Oral 800 ml IV Total 50 ml Output Drainage Total 15 ml # Voids 3 PATIENT HAS A ESCAMILLA: No General: Alert, Oriented X3, Cooperative, No acute distress Abdomen: Normal bowel sounds, Soft, Other (mildly tender at drain site, JANNET with minimal serous drainage) Labs Laboratory Tests Test 05/30/18 09:20 05/30/18 09:26 05/30/18 09:45 05/30/18 10:25 Urine Collection Type Unknown Urine Color Juliette Urine Clarity Clear Urine pH 6.5 Urine Specific [place] >=1.030 Urine Protein 30 mg/dL (NEG-TRACE) Urine Glucose (UA) Negative mg/dL (NEG) Urine Ketones (Stick) 40 mg/dL (NEG) Urine Blood Small (NEG) Urine Nitrite Negative (NEG) Urine Bilirubin Small (NEG) Urine Urobilinogen Dipstick 1.0 mg/dL (0.2 mg/dL) Urine Leukocyte Esterase Negative (NEG) Urine RBC 6-10 /HPF (0-2) Urine WBC 0 /HPF (0-4) Urine Squamous Epithelial Cells Few /LPF Urine Bacteria 0 /HPF (0-FEW) Urine Mucus Marked /LPF Bedside Urine HCG, Qualitative Hcg negative (Negative) White Blood Count 19.0 x10^3/uL (4.0-11.0) Red Blood Count 4.78 x10^6/uL (3.50-5.40) Hemoglobin 14.1 g/dL (12.0-15.5) Hematocrit 41.1 % (36.0-47.0) Mean Corpuscular Volume 86 fL (79-100) Mean Corpuscular Hemoglobin 30 pg (25-35) Mean Corpuscular Hemoglobin Concent 34 g/dL (31-37) Red Cell Distribution Width 13.7 % (11.5-14.5) Platelet Count 361 x10^3/uL (140-400) Neutrophils (%) (Auto) 82 % (31-73) Lymphocytes (%) (Auto) 11 % (24-48) Monocytes (%) (Auto) 7 % (0-9) Eosinophils (%) (Auto) 0 % (0-3) Basophils (%) (Auto) 1 % (0-3) Neutrophils # (Auto) 15.5 x10^3uL (1.8-7.7) Lymphocytes # (Auto) 2.2 x10^3/uL (1.0-4.8) Monocytes # (Auto) 1.2 x10^3/uL (0.0-1.1) Eosinophils # (Auto) 0.0 x10^3/uL (0.0-0.7) Basophils # (Auto) 0.1 x10^3/uL (0.0-0.2) Segmented Neutrophils % 79 % (35-66) Band Neutrophils % 3 % (0-9) Lymphocytes % 16 % (24-48) Monocytes % 1 % (0-10) Basophils % 1 % (0-3) Platelet Estimate Adequate (ADEQUATE) Sodium Level 140 mmol/L (136-145) Potassium Level 3.5 mmol/L (3.5-5.1) Chloride Level 103 mmol/L (98-107) Carbon Dioxide Level 27 mmol/L (21-32) Anion Gap 10 (6-14) Blood Urea Nitrogen 7 mg/dL (7-20) Creatinine 0.6 mg/dL (0.6-1.0) Estimated GFR (Cockcroft-Gault) 134.0 BUN/Creatinine Ratio 12 (6-20) Glucose Level 132 mg/dL (70-99) Calcium Level 8.4 mg/dL (8.5-10.1) Total Bilirubin 0.7 mg/dL (0.2-1.0) Aspartate Amino Transf (AST/SGOT) 12 U/L (15-37) Alanine Aminotransferase (ALT/SGPT) 24 U/L (14-59) Alkaline Phosphatase 90 U/L (46-116) Total Protein 7.7 g/dL (6.4-8.2) Albumin 3.4 g/dL (3.4-5.0) Albumin/Globulin Ratio 0.8 (1.0-1.7) Lactic Acid Level 0.6 mmol/L (0.4-2.0) Test 05/31/18 13:00 Prothrombin Time 14.8 SEC (11.7-14.0) Prothromb Time International Ratio 1.2 (0.8-1.1) Activated Partial Thromboplast Time 33 SEC (24-38) Laboratory Tests Test 05/31/18 13:00 Prothrombin Time 14.8 SEC (11.7-14.0) Prothromb Time International Ratio 1.2 (0.8-1.1) Activated Partial Thromboplast Time 33 SEC (24-38) Problem List Problems Medical Problems: (1) Abscess between intestinal loops Status: Acute (2) Enteritis Status: Acute Assessment/Plan s/p IR drain of intra abdominal abscess Continue abx Consider repeat CT in couple days LO CURRIE MD Jun 01, 2018 08:20
[2018-06-01] MEDS: LACTOBACILLUS RHAMNOSUS GG 1 CAPSULE. PO SCH ×2 (09:25→19:57)
[2018-06-01 10:00] LABS: BASO % 1 % (0-3); EOS # 0.1 x10^3/uL (0.0-0.7); EOS % 1 % (0-3); HEMATOCRIT 36.3 % (36.0-47.0); HEMOGLOBIN 12.2 g/dL (12.0-15.5); LYMPH # 1.6 x10^3/uL (1.0-4.8); LYMPH % 15 % (24-48); MEAN CORPUSCULAR HEMOGLOBIN 29 pg (25-35); MEAN CORPUSCULAR HGB CONC 34 g/dL (31-37); MEAN CORPUSCULAR VOLUME 87 fL (79-100); MONO # 0.4 x10^3/uL (0.0-1.1); MONO % 4 % (0-9); NEUT # 8.3 x10^3uL (1.8-7.7); NEUT % 80 % (31-73); PLATELET COUNT 367 x10^3/uL (140-400); RED BLOOD COUNT 4.19 x10^6/uL (3.50-5.40); RED CELL DISTRIBUTION WIDTH 13.6 % (11.5-14.5); WHITE BLOOD COUNT 10.4 x10^3/uL (4.0-11.0)
[2018-06-01 11:00] VITALS: BP 119/74
--- NOTE | 2018-06-01 11:45 | PDOC ---
PROGRESS NOTES Chief Complaint Chief Complaint Acute abd pain sepsis, leukocytosis and fever diverticulitis w. abcess, drain placed by IR yesterday History of Present Illness History of Present Illness Pt seen and examined VSS pain better drain functioning Vitals Vitals Vital Signs Date Time Temp Pulse Resp B/P (MAP) Pulse Ox O2 Delivery O2 Flow Rate FiO2 06/01/18 08:00 Room Air 06/01/18 07:00 98.1 92 18 117/76 (90) 95 98.1 05/31/18 13:32 2.0 Physical Exam General: Alert, Oriented X3, Cooperative, No acute distress Heart: Regular rate, Normal S1, Normal S2, No murmurs Lungs: Clear Abdomen: Normal bowel sounds, Soft, Other (mildly tender at drain site, JANNET with minimal serous drainage) Extremities: No clubbing, No cyanosis, Normal pulses Skin: No significant lesion Labs LABS Laboratory Tests Test 05/31/18 13:00 06/01/18 09:25 Prothrombin Time 14.8 SEC (11.7-14.0) Prothromb Time International Ratio 1.2 (0.8-1.1) Activated Partial Thromboplast Time 33 SEC (24-38) White Blood Count 10.4 x10^3/uL (4.0-11.0) Red Blood Count 4.19 x10^6/uL (3.50-5.40) Hemoglobin 12.2 g/dL (12.0-15.5) Hematocrit 36.3 % (36.0-47.0) Mean Corpuscular Volume 87 fL (79-100) Mean Corpuscular Hemoglobin 29 pg (25-35) Mean Corpuscular Hemoglobin Concent 34 g/dL (31-37) Red Cell Distribution Width 13.6 % (11.5-14.5) Platelet Count 367 x10^3/uL (140-400) Neutrophils (%) (Auto) 80 % (31-73) Lymphocytes (%) (Auto) 15 % (24-48) Monocytes (%) (Auto) 4 % (0-9) Eosinophils (%) (Auto) 1 % (0-3) Basophils (%) (Auto) 1 % (0-3) Neutrophils # (Auto) 8.3 x10^3uL (1.8-7.7) Lymphocytes # (Auto) 1.6 x10^3/uL (1.0-4.8) Monocytes # (Auto) 0.4 x10^3/uL (0.0-1.1) Eosinophils # (Auto) 0.1 x10^3/uL (0.0-0.7) Basophils # (Auto) 0.0 x10^3/uL (0.0-0.2) Review of Systems Review of Systems co pain co weakness Assessment and Plan Assessmemt and Plan Problems Medical Problems: (1) Abscess between intestinal loops Status: Acute (2) Enteritis Status: Acute Acute abd pain sepsis, leukocytosis and fever diverticulitis w. abcess, drain placed by IR yesterday Plan IV antibx Wound residential meds Labs Comment Review of Relevant I have reviewed the following items enoc (where applicable) has been applied. Labs Laboratory Tests Test 05/31/18 13:00 06/01/18 09:25 Prothrombin Time 14.8 SEC (11.7-14.0) Prothromb Time International Ratio 1.2 (0.8-1.1) Activated Partial Thromboplast Time 33 SEC (24-38) White Blood Count 10.4 x10^3/uL (4.0-11.0) Red Blood Count 4.19 x10^6/uL (3.50-5.40) Hemoglobin 12.2 g/dL (12.0-15.5) Hematocrit 36.3 % (36.0-47.0) Mean Corpuscular Volume 87 fL (79-100) Mean Corpuscular Hemoglobin 29 pg (25-35) Mean Corpuscular Hemoglobin Concent 34 g/dL (31-37) Red Cell Distribution Width 13.6 % (11.5-14.5) Platelet Count 367 x10^3/uL (140-400) Neutrophils (%) (Auto) 80 % (31-73) Lymphocytes (%) (Auto) 15 % (24-48) Monocytes (%) (Auto) 4 % (0-9) Eosinophils (%) (Auto) 1 % (0-3) Basophils (%) (Auto) 1 % (0-3) Neutrophils # (Auto) 8.3 x10^3uL (1.8-7.7) Lymphocytes # (Auto) 1.6 x10^3/uL (1.0-4.8) Monocytes # (Auto) 0.4 x10^3/uL (0.0-1.1) Eosinophils # (Auto) 0.1 x10^3/uL (0.0-0.7) Basophils # (Auto) 0.0 x10^3/uL (0.0-0.2) Laboratory Tests Test 05/31/18 13:00 06/01/18 09:25 Prothrombin Time 14.8 SEC (11.7-14.0) Prothromb Time International Ratio 1.2 (0.8-1.1) Activated Partial Thromboplast Time 33 SEC (24-38) White Blood Count 10.4 x10^3/uL (4.0-11.0) Red Blood Count 4.19 x10^6/uL (3.50-5.40) Hemoglobin 12.2 g/dL (12.0-15.5) Hematocrit 36.3 % (36.0-47.0) Mean Corpuscular Volume 87 fL (79-100) Mean Corpuscular Hemoglobin 29 pg (25-35) Mean Corpuscular Hemoglobin Concent 34 g/dL (31-37) Red Cell Distribution Width 13.6 % (11.5-14.5) Platelet Count 367 x10^3/uL (140-400) Neutrophils (%) (Auto) 80 % (31-73) Lymphocytes (%) (Auto) 15 % (24-48) Monocytes (%) (Auto) 4 % (0-9) Eosinophils (%) (Auto) 1 % (0-3) Basophils (%) (Auto) 1 % (0-3) Neutrophils # (Auto) 8.3 x10^3uL (1.8-7.7) Lymphocytes # (Auto) 1.6 x10^3/uL (1.0-4.8) Monocytes # (Auto) 0.4 x10^3/uL (0.0-1.1) Eosinophils # (Auto) 0.1 x10^3/uL (0.0-0.7) Basophils # (Auto) 0.0 x10^3/uL (0.0-0.2) Microbiology 05/30/18 Blood Culture - Preliminary, Resulted NO GROWTH AFTER 2 DAYS Medications Current Medications Fentanyl Citrate (Fentanyl 2ml Vial) 50 mcg 1X ONCE IV Last administered on at 10:00; Start 05/30/18 at 09:45; Stop 05/30/18 at 09:46; Status DC Sodium Chloride 1,000 ml @ 1,000 mls/hr 1X ONCE IV Last administered on 05/30at 10:00; Start 05/30/18 at 09:45; Stop 05/30/18 at 10:44; Status DC Iohexol (Omnipaque 240 Mg/ml) 30 ml 1X ONCE PO Last administered on at 11:00; Start 05/30/18 at 10:30; Stop 05/30/18 at 10:31; Status DC Iohexol (Omnipaque 300 Mg/ml) 75 ml 1X ONCE IV Last administered on at 11:00; Start 05/30/18 at 10:30; Stop 05/30/18 at 10:31; Status DC Info (CONTRAST GIVEN -- Rx MONITORING) 1 each PRN DAILY PRN MC SEE COMMENTS; Start 05/30/18 at 10:30; Stop 06/01/18 at 10:29; Status DC Sodium Chloride 1,000 ml @ 1,000 mls/hr 1X ONCE IV Last administered on 05/30at 12:15; Start 05/30/18 at 12:15; Stop 05/30/18 at 13:16; Status DC Piperacillin Sod/ Tazobactam Sod (Zosyn Per Pharmacy) 1 each PRN DAILY PRN MC SEE COMMENTS; Start 05/30/18 at 12:30; Stop 05/30/18 at 13:02; Status DC Ondansetron HCl (Zofran) 4 mg PRN Q8HRS PRN IV NAUSEA/VOMITING; Start at 12:30; Stop 05/31/18 at 12:29; Status DC Fentanyl Citrate (Fentanyl 2ml Vial) 50 mcg PRN Q1HR PRN IV PAIN Last administered on 05/30/18at 21:41; Start 05/30/18 at 12:30; Stop 05/31/18 at 12 :29; Status DC Sodium Chloride 1,000 ml @ 125 mls/hr Q8H IV Last administered on 05/31/18at 05:41; Start 05/30/18 at 12:28; Stop 05/31/18 at 12:27; Status DC Piperacillin Sod/ Tazobactam Sod 3.375 gm/Sodium Chloride 50 ml @ 100 mls/hr 1X ONCE IV Last administered on 05/30/18at 12:45; Start 05/30/18 at 12:45; Stop 05/30/18 at 13:16; Status DC Piperacillin Sod/ Tazobactam Sod (Zosyn Per Pharmacy) 1 each PRN DAILY PRN MC SEE COMMENTS; Start 05/30/18 at 13:15 Piperacillin Sod/ Tazobactam Sod 3.375 gm/Sodium Chloride 50 ml @ 100 mls/hr Q6HRS IV Last administered on 06/01/18at 05:36; Start 05/30/18 at 18:00 Lactobacillus Rhamnosus (Culturelle) 1 cap BID PO Last administered on at 09:25; Start 05/31/18 at 21:00 Lidocaine/Sodium Bicarbonate (Buffered Lidocaine 1%) 3 ml STK-MED ONCE .ROUTE ; Start 05/31/18 at 12:44; Stop 05/31/18 at 12:45; Status DC Midazolam HCl (Versed) 2 mg STK-MED ONCE .ROUTE ; Start 05/31/18 at 12:52; Stop 05/31/18 at 12:53; Status DC Fentanyl Citrate (Fentanyl 2ml Vial) 100 mcg STK-MED ONCE .ROUTE ; Start at 12:52; Stop 05/31/18 at 12:53; Status DC Midazolam HCl (Versed) 2 mg STK-MED ONCE .ROUTE ; Start 05/31/18 at 13:17; Stop 05/31/18 at 13:18; Status DC Fentanyl Citrate (Fentanyl 2ml Vial) 100 mcg STK-MED ONCE .ROUTE ; Start at 13:18; Stop 05/31/18 at 13:19; Status DC Lidocaine/Sodium Bicarbonate (Buffered Lidocaine 1%) 3 ml STK-MED ONCE .ROUTE ; Start 05/31/18 at 13:19; Stop 05/31/18 at 13:20; Status DC Lidocaine/Sodium Bicarbonate (Buffered Lidocaine 1%) 3 ml 1X ONCE IJ Last administered on 05/31/18at 13:30; Start 05/31/18 at 13:30; Stop 05/31/18 at 13 :31; Status DC Midazolam HCl (Versed) 2 mg 1X ONCE IV Last administered on 05/31/18at 13:31; Start 05/31/18 at 13:30; Stop 05/31/18 at 13:31; Status DC Fentanyl Citrate (Fentanyl 2ml Vial) 100 mcg 1X ONCE IV Last administered on 05/31/18at 13:32; Start 05/31/18 at 13:30; Stop 05/31/18 at 13:31; Status DC Acetaminophen/ Hydrocodone Bitart (Lortab 5/325) 1 tab PRN Q6HRS PRN PO PAIN Last administered on 05/31/18at 19:17; Start 05/31/18 at 18:45 Active Scripts Active Augmentin 875-125 Tablet (Amoxicillin/Potassium Clav) 1 Each Tablet 1 Tab PO BID Famotidine 20 Mg Tablet 20 Mg PO QHS Colace (Docusate Sodium) 100 Mg Capsule 100 Mg PO PRN DAILY PRN Reported No Known Medications Prior To Admisstion (Info) Each 1 Each Vitals/I & O Vital Sign - Last 24 Hours 05/31/18 05/31/18 05/31/18 05/31/18 13:01 13:10 13:14 13:20 Pulse 92 108 Resp 18 20 18 22 Pulse Ox 99 98 98 O2 Delivery Nasal Cannula Nasal Cannula Nasal Cannula Nasal Cannula O2 Flow Rate 2.0 2.0 2.0 2.0 05/31/18 05/31/18 05/31/18 05/31/18 13:25 13:30 13:32 13:35 Pulse 110 112 Resp 23 22 18 23 Pulse Ox 98 97 O2 Delivery Nasal Cannula Nasal Cannula Nasal Cannula Room Air O2 Flow Rate 2.0 2.0 2.0 05/31/18 05/31/18 05/31/18 05/31/18 13:45 14:00 14:15 14:30 Pulse 109 99 116 105 B/P (MAP) 107/74 (85) 94/64 (74) 107/73 (84) 109/77 (88) 05/31/18 05/31/18 05/31/18 05/31/18 14:47 15:00 15:30 19:00 Temp 98.5 98.5 Pulse 101 103 110 Resp 17 B/P (MAP) 117/76 (90) 117/82 (94) 116/78 (91) Pulse Ox 95 O2 Delivery Room Air Room Air 05/31/18 05/31/18 05/31/18 05/31/18 19:17 20:00 20:52 23:00 Temp 97.5 97.5 Pulse 90 Resp 17 B/P (MAP) 120/79 (93) Pulse Ox 98 O2 Delivery Room Air Room Air Room Air Room Air 06/01/18 06/01/18 06/01/18 03:00 07:00 08:00 Temp 97.1 98.1 97.1 98.1 Pulse 86 92 Resp 18 18 B/P (MAP) 125/76 (92) 117/76 (90) Pulse Ox 97 95 O2 Delivery Room Air Room Air Room Air Intake and Output 05/31/18 05/31/18 06/01/18 15:01 23:01 07:01 Intake Total 250 ml 600 ml Output Total 15 ml Balance 250 ml 585 ml CAREN PHILLIPS III DO Jun 01, 2018 11:45
[2018-06-01 15:00] VITALS: BP 114/71
[2018-06-01 19:00] VITALS: BP 125/78
[2018-06-01 23:00] VITALS: BP 121/77
[2018-06-02] MEDS: PIPERACILLIN/TAZOBACTAM 3.375 GM in IV NORMAL SALINE 50ML 50 ML IV SCH ×5 (00:01→23:47)
[2018-06-02 03:00] VITALS: BP 117/77
[2018-06-02 07:00] VITALS: BP 115/87
--- NOTE | 2018-06-02 08:49 | PDOC ---
SURGICAL PROGRESS NOTE Subjective Patient is doing well, no complaints Vital Signs Vital Signs Date Time Temp Pulse Resp B/P (MAP) Pulse Ox O2 Delivery O2 Flow Rate FiO2 06/02/18 03:00 98.7 87 18 117/77 (90) 98 Room Air 98.7 I&O Intake and Output 06/02/18 07:00 Intake Total 620 ml Output Total 45 ml Balance 575 ml Intake Oral 520 ml IV Total 100 ml Output Drainage Total 45 ml PATIENT HAS A ESCAMILLA: No General: Alert, Oriented X3, Cooperative, No acute distress Abdomen: Normal bowel sounds, Soft, No tenderness, Other (JANNET intact with serous minimal drainage) Labs Laboratory Tests Test 05/31/18 13:00 06/01/18 09:25 Prothrombin Time 14.8 SEC (11.7-14.0) Prothromb Time International Ratio 1.2 (0.8-1.1) Activated Partial Thromboplast Time 33 SEC (24-38) White Blood Count 10.4 x10^3/uL (4.0-11.0) Red Blood Count 4.19 x10^6/uL (3.50-5.40) Hemoglobin 12.2 g/dL (12.0-15.5) Hematocrit 36.3 % (36.0-47.0) Mean Corpuscular Volume 87 fL (79-100) Mean Corpuscular Hemoglobin 29 pg (25-35) Mean Corpuscular Hemoglobin Concent 34 g/dL (31-37) Red Cell Distribution Width 13.6 % (11.5-14.5) Platelet Count 367 x10^3/uL (140-400) Neutrophils (%) (Auto) 80 % (31-73) Lymphocytes (%) (Auto) 15 % (24-48) Monocytes (%) (Auto) 4 % (0-9) Eosinophils (%) (Auto) 1 % (0-3) Basophils (%) (Auto) 1 % (0-3) Neutrophils # (Auto) 8.3 x10^3uL (1.8-7.7) Lymphocytes # (Auto) 1.6 x10^3/uL (1.0-4.8) Monocytes # (Auto) 0.4 x10^3/uL (0.0-1.1) Eosinophils # (Auto) 0.1 x10^3/uL (0.0-0.7) Basophils # (Auto) 0.0 x10^3/uL (0.0-0.2) Laboratory Tests Test 06/01/18 09:25 White Blood Count 10.4 x10^3/uL (4.0-11.0) Red Blood Count 4.19 x10^6/uL (3.50-5.40) Hemoglobin 12.2 g/dL (12.0-15.5) Hematocrit 36.3 % (36.0-47.0) Mean Corpuscular Volume 87 fL (79-100) Mean Corpuscular Hemoglobin 29 pg (25-35) Mean Corpuscular Hemoglobin Concent 34 g/dL (31-37) Red Cell Distribution Width 13.6 % (11.5-14.5) Platelet Count 367 x10^3/uL (140-400) Neutrophils (%) (Auto) 80 % (31-73) Lymphocytes (%) (Auto) 15 % (24-48) Monocytes (%) (Auto) 4 % (0-9) Eosinophils (%) (Auto) 1 % (0-3) Basophils (%) (Auto) 1 % (0-3) Neutrophils # (Auto) 8.3 x10^3uL (1.8-7.7) Lymphocytes # (Auto) 1.6 x10^3/uL (1.0-4.8) Monocytes # (Auto) 0.4 x10^3/uL (0.0-1.1) Eosinophils # (Auto) 0.1 x10^3/uL (0.0-0.7) Basophils # (Auto) 0.0 x10^3/uL (0.0-0.2) Problem List Problems Medical Problems: (1) Abscess between intestinal loops Status: Acute (2) Enteritis Status: Acute Assessment/Plan Intra abdominal abscess, drain per IR Continue IV abx, consider repeat CT tomorrow for evaluation of resolution of fluid collection LO CURRIE MD Jun 02, 2018 08:49
[2018-06-02 11:00] VITALS: BP 103/65
[2018-06-02] MEDS: LACTOBACILLUS RHAMNOSUS GG 1 CAPSULE. PO SCH ×2 (12:16→20:41)
[2018-06-02] MEDS: SIMETHICONE 80 MG TAB.CHEW PO PRN ×2 (12:16→17:56)
--- NOTE | 2018-06-02 14:18 | PDOC ---
PROGRESS NOTES Chief Complaint Chief Complaint Acute abd pain sepsis, leukocytosis and fever diverticulitis w. abcess, drain placed by IR 2 days ago surg consult may want f/u CT in AM complains of gas pain today, increased flatulence History of Present Illness History of Present Illness Pt seen and examined VSS pain better drain functioning Vitals Vitals Vital Signs Date Time Temp Pulse Resp B/P (MAP) Pulse Ox O2 Delivery O2 Flow Rate FiO2 06/02/18 07:00 99.4 91 17 115/87 (96) 98 Room Air 99.4 Physical Exam General: Alert, Oriented X3, Cooperative, No acute distress Heart: Regular rate, Normal S1, Normal S2, No murmurs Lungs: Clear Abdomen: Normal bowel sounds, Soft, No tenderness, Other (JANNET intact with serous minimal drainage) Extremities: No clubbing, No cyanosis, Normal pulses Skin: No significant lesion Assessment and Plan Assessmemt and Plan Problems Medical Problems: (1) Abscess between intestinal loops Status: Acute (2) Enteritis Status: Acute Comment Review of Relevant I have reviewed the following items enoc (where applicable) has been applied. Labs Laboratory Tests Test 06/01/18 09:25 White Blood Count 10.4 x10^3/uL (4.0-11.0) Red Blood Count 4.19 x10^6/uL (3.50-5.40) Hemoglobin 12.2 g/dL (12.0-15.5) Hematocrit 36.3 % (36.0-47.0) Mean Corpuscular Volume 87 fL (79-100) Mean Corpuscular Hemoglobin 29 pg (25-35) Mean Corpuscular Hemoglobin Concent 34 g/dL (31-37) Red Cell Distribution Width 13.6 % (11.5-14.5) Platelet Count 367 x10^3/uL (140-400) Neutrophils (%) (Auto) 80 % (31-73) Lymphocytes (%) (Auto) 15 % (24-48) Monocytes (%) (Auto) 4 % (0-9) Eosinophils (%) (Auto) 1 % (0-3) Basophils (%) (Auto) 1 % (0-3) Neutrophils # (Auto) 8.3 x10^3uL (1.8-7.7) Lymphocytes # (Auto) 1.6 x10^3/uL (1.0-4.8) Monocytes # (Auto) 0.4 x10^3/uL (0.0-1.1) Eosinophils # (Auto) 0.1 x10^3/uL (0.0-0.7) Basophils # (Auto) 0.0 x10^3/uL (0.0-0.2) Microbiology 05/30/18 Blood Culture - Preliminary, Resulted NO GROWTH AFTER 3 DAYS 05/31/18 Anaerobic/Aerobic Culture, Resulted Pending 05/31/18 Anaerobic Culture Result 1 (ANDREINA), Resulted Pending 05/31/18 Aerobic Culture, Resulted Pending 05/31/18 Aerobic Culture Result 1 (ANDREINA), Resulted Pending 05/31/18 Gram Stain - Final, Resulted 05/31/18 Gram Stain Result 1 (ANDREINA) - Final, Resulted 05/31/18 Gram Stain Result 2 (ANDREINA) - Final, Resulted Medications Current Medications Fentanyl Citrate (Fentanyl 2ml Vial) 50 mcg 1X ONCE IV Last administered on at 10:00; Start 05/30/18 at 09:45; Stop 05/30/18 at 09:46; Status DC Sodium Chloride 1,000 ml @ 1,000 mls/hr 1X ONCE IV Last administered on 05/30at 10:00; Start 05/30/18 at 09:45; Stop 05/30/18 at 10:44; Status DC Iohexol (Omnipaque 240 Mg/ml) 30 ml 1X ONCE PO Last administered on at 11:00; Start 05/30/18 at 10:30; Stop 05/30/18 at 10:31; Status DC Iohexol (Omnipaque 300 Mg/ml) 75 ml 1X ONCE IV Last administered on at 11:00; Start 05/30/18 at 10:30; Stop 05/30/18 at 10:31; Status DC Info (CONTRAST GIVEN -- Rx MONITORING) 1 each PRN DAILY PRN MC SEE COMMENTS; Start 05/30/18 at 10:30; Stop 06/01/18 at 10:29; Status DC Sodium Chloride 1,000 ml @ 1,000 mls/hr 1X ONCE IV Last administered on 05/30at 12:15; Start 05/30/18 at 12:15; Stop 05/30/18 at 13:16; Status DC Piperacillin Sod/ Tazobactam Sod (Zosyn Per Pharmacy) 1 each PRN DAILY PRN MC SEE COMMENTS; Start 05/30/18 at 12:30; Stop 05/30/18 at 13:02; Status DC Ondansetron HCl (Zofran) 4 mg PRN Q8HRS PRN IV NAUSEA/VOMITING; Start at 12:30; Stop 05/31/18 at 12:29; Status DC Fentanyl Citrate (Fentanyl 2ml Vial) 50 mcg PRN Q1HR PRN IV PAIN Last administered on 05/30/18at 21:41; Start 05/30/18 at 12:30; Stop 05/31/18 at 12 :29; Status DC Sodium Chloride 1,000 ml @ 125 mls/hr Q8H IV Last administered on 05/31/18at 05:41; Start 05/30/18 at 12:28; Stop 05/31/18 at 12:27; Status DC Piperacillin Sod/ Tazobactam Sod 3.375 gm/Sodium Chloride 50 ml @ 100 mls/hr 1X ONCE IV Last administered on 05/30/18at 12:45; Start 05/30/18 at 12:45; Stop 05/30/18 at 13:16; Status DC Piperacillin Sod/ Tazobactam Sod (Zosyn Per Pharmacy) 1 each PRN DAILY PRN MC SEE COMMENTS; Start 05/30/18 at 13:15 Piperacillin Sod/ Tazobactam Sod 3.375 gm/Sodium Chloride 50 ml @ 100 mls/hr Q6HRS IV Last administered on 06/02/18at 12:16; Start 05/30/18 at 18:00 Lactobacillus Rhamnosus (Culturelle) 1 cap BID PO Last administered on at 12:16; Start 05/31/18 at 21:00 Lidocaine/Sodium Bicarbonate (Buffered Lidocaine 1%) 3 ml STK-MED ONCE .ROUTE ; Start 05/31/18 at 12:44; Stop 05/31/18 at 12:45; Status DC Midazolam HCl (Versed) 2 mg STK-MED ONCE .ROUTE ; Start 05/31/18 at 12:52; Stop 05/31/18 at 12:53; Status DC Fentanyl Citrate (Fentanyl 2ml Vial) 100 mcg STK-MED ONCE .ROUTE ; Start at 12:52; Stop 05/31/18 at 12:53; Status DC Midazolam HCl (Versed) 2 mg STK-MED ONCE .ROUTE ; Start 05/31/18 at 13:17; Stop 05/31/18 at 13:18; Status DC Fentanyl Citrate (Fentanyl 2ml Vial) 100 mcg STK-MED ONCE .ROUTE ; Start at 13:18; Stop 05/31/18 at 13:19; Status DC Lidocaine/Sodium Bicarbonate (Buffered Lidocaine 1%) 3 ml STK-MED ONCE .ROUTE ; Start 05/31/18 at 13:19; Stop 05/31/18 at 13:20; Status DC Lidocaine/Sodium Bicarbonate (Buffered Lidocaine 1%) 3 ml 1X ONCE IJ Last administered on 05/31/18at 13:30; Start 05/31/18 at 13:30; Stop 05/31/18 at 13 :31; Status DC Midazolam HCl (Versed) 2 mg 1X ONCE IV Last administered on 05/31/18at 13:31; Start 05/31/18 at 13:30; Stop 05/31/18 at 13:31; Status DC Fentanyl Citrate (Fentanyl 2ml Vial) 100 mcg 1X ONCE IV Last administered on 05/31/18at 13:32; Start 05/31/18 at 13:30; Stop 05/31/18 at 13:31; Status DC Acetaminophen/ Hydrocodone Bitart (Lortab 5/325) 1 tab PRN Q6HRS PRN PO PAIN Last administered on 05/31/18at 19:17; Start 05/31/18 at 18:45 Simethicone (Gas-X) 80 mg PRN AFTMEALHC PRN PO GAS / BLOATING Last administered on 06/02/18at 12:16; Start 06/02/18 at 11:30 Active Scripts Active Augmentin 875-125 Tablet (Amoxicillin/Potassium Clav) 1 Each Tablet 1 Tab PO BID Famotidine 20 Mg Tablet 20 Mg PO QHS Colace (Docusate Sodium) 100 Mg Capsule 100 Mg PO PRN DAILY PRN Reported No Known Medications Prior To Admisstion (Info) Each 1 Each Vitals/I & O Vital Sign - Last 24 Hours 06/01/18 06/01/18 06/01/18 06/01/18 15:00 19:00 20:00 23:00 Temp 97.9 99.0 98.8 97.9 99.0 98.8 Pulse 85 86 94 Resp 18 18 18 B/P (MAP) 114/71 (85) 125/78 (94) 121/77 (92) Pulse Ox 98 98 98 O2 Delivery Room Air Room Air Room Air Room Air 06/02/18 06/02/18 03:00 07:00 Temp 98.7 99.4 98.7 99.4 Pulse 87 91 Resp B/P (MAP) 117/77 (90) 115/87 (96) Pulse Ox 98 98 O2 Delivery Room Air Room Air Intake and Output 06/01/18 06/01/18 06/02/18 15:00 23:00 07:00 Intake Total 170 ml 400 ml 50 ml Output Total 30 ml 15 ml Balance 170 ml 370 ml 35 ml PARVIZ HORTA MD Jun 02, 2018 14:18
[2018-06-02 15:00] VITALS: BP 136/63
[2018-06-02] MEDS: HYDROcodone/APAP 5/325MG 1 TAB TABLET PO PRN ×2 (17:57→23:47)
[2018-06-02 19:00] VITALS: BP 91/55
[2018-06-02 23:00] VITALS: BP 95/58
[2018-06-03 03:00] VITALS: BP 97/51
[2018-06-03] MEDS: PIPERACILLIN/TAZOBACTAM 3.375 GM in IV NORMAL SALINE 50ML 50 ML IV SCH ×3 (05:40→17:02)
[2018-06-03 07:00] VITALS: BP 114/72
--- NOTE | 2018-06-03 08:39 | PDOC ---
SURGICAL PROGRESS NOTE Subjective Patient doing well this morning tolerating regular diet no pain Vital Signs Vital Signs Date Time Temp Pulse Resp B/P (MAP) Pulse Ox O2 Delivery O2 Flow Rate FiO2 06/03/18 07:00 98.1 50 16 114/72 (86) 95 Room Air 98.1 I&O Intake and Output 06/03/18 07:00 Intake Total 2020 ml Output Total 10 ml Balance 2010 ml Intake Oral 1920 ml IV Total 100 ml Output Drainage Total 10 ml # Voids 2 # Bowel Movements 1 PATIENT HAS A ESCAMILLA: No General: Alert, Oriented X3, Cooperative, No acute distress Abdomen: Normal bowel sounds, Soft, No tenderness, Other (JANNET intact with minimal serous drainage) Labs Laboratory Tests Test 06/01/18 09:25 White Blood Count 10.4 x10^3/uL (4.0-11.0) Red Blood Count 4.19 x10^6/uL (3.50-5.40) Hemoglobin 12.2 g/dL (12.0-15.5) Hematocrit 36.3 % (36.0-47.0) Mean Corpuscular Volume 87 fL (79-100) Mean Corpuscular Hemoglobin 29 pg (25-35) Mean Corpuscular Hemoglobin Concent 34 g/dL (31-37) Red Cell Distribution Width 13.6 % (11.5-14.5) Platelet Count 367 x10^3/uL (140-400) Neutrophils (%) (Auto) 80 % (31-73) Lymphocytes (%) (Auto) 15 % (24-48) Monocytes (%) (Auto) 4 % (0-9) Eosinophils (%) (Auto) 1 % (0-3) Basophils (%) (Auto) 1 % (0-3) Neutrophils # (Auto) 8.3 x10^3uL (1.8-7.7) Lymphocytes # (Auto) 1.6 x10^3/uL (1.0-4.8) Monocytes # (Auto) 0.4 x10^3/uL (0.0-1.1) Eosinophils # (Auto) 0.1 x10^3/uL (0.0-0.7) Basophils # (Auto) 0.0 x10^3/uL (0.0-0.2) Problem List Problems Medical Problems: (1) Abscess between intestinal loops Status: Acute (2) Enteritis Status: Acute Assessment/Plan Status post drainage of intra-abdominal abscess by IR We'll obtain abdominal CT for further evaluation of fluid collection LO CURRIE MD Jun 03, 2018 08:39
[2018-06-03] MEDS ORDERED: HYDR-2758 PO (08:47)
[2018-06-03] MEDS ORDERED: AMOX1TAB61 PO (08:47)
[2018-06-03] MEDS ORDERED: SIME80TA14 PO (08:47)
[2018-06-03] MEDS ORDERED: IOHEXOL 240 MG/ML 50ML VIAL. PO ONE (09:00)
[2018-06-03] MEDS ORDERED: IOHEXOL 300 MG/ML 100ML VIAL. IV ONE (09:00)
[2018-06-03] MEDS: LACTOBACILLUS RHAMNOSUS GG 1 CAPSULE. PO SCH (09:00)
[2018-06-03] MEDS ORDERED: CONTRAST GIVEN. MC PRN (09:00)
[2018-06-03 11:00] VITALS: BP 118/79
--- NOTE | 2018-06-03 14:51 | RAD ---
CT of the abdomen and pelvis with contrast, 06/03/2018: HISTORY: Follow-up drained abscess Multidetector CT imaging was performed following oral and IV administration of contrast. Comparison is made to a study from 05/30/2018. There is mild linear atelectasis and/or scarring in the lung bases. No hepatic abnormality is seen. The gallbladder is unremarkable. The pancreas shows no abnormality. The spleen is of normal size. No renal abnormality is detected. The abdominal aorta is unremarkable. The uterus and both ovaries show no abnormality. There has been interval placement of a percutaneous drain within a presumed abscess located between small bowel loops in the left midabdomen. There is a tiny amount of residual fluid and a small bubble of gas within this drained abscess. No large residual fluid collection is seen. An adjacent small bowel loop again demonstrates moderate mural thickening. There is moderate streaky increased density in the adjacent abdominal fat compatible with inflammation. This extends inferiorly adjacent to a thick walled segment of proximal sigmoid colon. Similar findings were present on the previous study. No new abscess is identified. There is no evidence of bowel obstruction. No free fluid is evident in the abdomen or pelvis. There is a small fat-containing periumbilical hernia. There are couple of new bubbles of gas within this hernia, likely on an iatrogenic basis related to the drainage catheter placement. No large pneumoperitoneum is seen. IMPRESSION: 1. Interval reduction in size of the left mid abdominal interloop abscess status post drain placement. 2. Persistent adjacent small bowel and proximal sigmoid colonic mural thickening and moderate mesenteric inflammation. It is unclear whether this process originated from the small bowel or the colon, although the latter possibility is favored. Diagnostic considerations include inflammatory bowel disease, diverticulitis or nonspecific enteritis/colitis. A similar process was evident on an old CT study from 05/20/2017. PQRS Compliance Statement: One or more of the following individualized dose reduction techniques were utilized for this examination: 1. Automated exposure control 2. Adjustment of the mA and/or kV according to patient size 3. Use of iterative reconstruction technique Electronically signed by: Kam Frank MD (06/03/2018 2:48 PM) [facility]
[2018-06-03 15:21] VITALS: BP 106/71
== END 2018-06-03 17:30 | disposition home or self-care (01) | DRG 871 ==
LOC: ER 09:00 → 5 NORTH 12:22 → ER 13:02
PROVIDERS: ADMIT Internal Medicine; ATTEND Internal Medicine
PROC: 0W9G30Z Drainage of Peritoneal Cavity with Drainage Device, Percutaneous Approach (ICD-10-PCS; principal; 2018-05-31)
DX: A41.9 Sepsis, unspecified organism (principal); K65.1 Peritoneal abscess; K57.80 Diverticulitis of intestine, part unspecified, with perforation and abscess without bleeding; K52.9 Noninfective gastroenteritis and colitis, unspecified; K59.00 Constipation, unspecified; Z82.49 Family history of ischemic heart disease and other diseases of the circulatory system; Z79.899 Other long term (current) drug therapy
CPT/HCPCS: 36415; 49406; 74177; 80053; 81001; 81025; 83605; 85007; 85025; 85610; 85730; 87040; 87071; 87075; 87186; 96361; 96374; 99152; 99153; A4215; C1729; C1892; J2250; J2543; J3010; J7030; Q9966; Q9967; 99285-25